=== PATIENT | female | born 1935 | race Hispanic/Latino ===

== ENCOUNTER 2018-11-28 23:19 | Observation (INO) | payer OTHER ==
[~2018-11-28] VITALS: Ht 160 cm; Wt 62.6 kg
[2018-11-28] MEDS ORDERED: ASPIRIN 325 MG TABLET ONE (23:29)
[2018-11-28 23:45] LABS: EOSINOPHILS % (AUTO) 2.5 % (0.0-8.0); HEMATOCRIT 36.7 % (36-48); LYMPHOCYTES % (AUTO) 31.8 % (21.0-51.0); MEAN CORPUSCULAR HEMOGLOBIN 30.1 pg (27.0-33.0); MEAN CORPUSCULAR HGB CONC 33.9 g/dL (32.0-36.0); MEAN CORPUSCULAR VOLUME 88.8 fL (79-99); MONOCYTES % (AUTO) 10.9 % (3.0-13.0); NEUTROPHILS % (AUTO) 53.8 % (40.0-77.0); NUCLEATED RED BLOOD CELLS 0.1 % (0.0-0.19); PLATELET COUNT (AUTO) 175 K/uL (130-400); RED BLOOD CELL COUNT(AUTO) 4.13 MIL/uL (4.00-5.50); RED CELL DISTRIBUTION WIDTH 12.7 % (11.0-15.5)
[2018-11-28 23:55] LABS: CREATININE 0.8 mg/dL (0.5-1.5); POTASSIUM 4.1 mmol/L (3.5-5.1)
[2018-11-28 23:57] LABS: PARTIAL THROMBOPLASTIN TIME 26.2 SEC (26.3-35.5); PROTHROMBIN TIME 10.5 SEC (9.6-11.6)
[2018-11-29 00:05] LABS: ALBUMIN 3.5 g/dL (3.5-5.0); BILIRUBIN,TOTAL 0.3 mg/dL (0.2-1.0); TOTAL PROTEIN, SERUM 7.8 g/dL (6.0-8.3)
[2018-11-29] MEDS ORDERED: ONDANSETRON HCL 4 MG/2 ML VIAL ONE ×2 (00:07→01:23)
[2018-11-29] MEDS ORDERED: MORPHINE SULFATE 4 MG/1ML SYG ONE (00:07)
[2018-11-29] MEDS ORDERED: ACETAMINOPHEN 325 MG TAB PO PRN (03:15)
[2018-11-29] MEDS ORDERED: MORPHINE SULFATE 2 MG/ML 1ML SYG IV PRN (03:15)
[2018-11-29] MEDS: NITROGLYCERIN 1GM/1 INCH PACKET TD SCH ×2 (03:15→11:15)
[2018-11-29] MEDS ORDERED: ONDANSETRON HCL 4 MG/2 ML VIAL IV PRN (03:15)
[2018-11-29] MEDS ORDERED: NITROGLYCERIN 1GM/1 INCH PACKET TD ONE (04:48)
[2018-11-29 05:00] VITALS: BP 138/63
[2018-11-29 08:00] VITALS: BP 115/66
[2018-11-29] MEDS ORDERED: METOPROLOL TARTRATE 25 MG TAB PO SCH (09:00)
[2018-11-29] MEDS ORDERED: ENOXAPARIN SODIUM 30 MG/0.3 ML SQ SCH (09:00)
[2018-11-29] MEDS ORDERED: ASPIRIN 325 MG TABLET PO SCH (09:00)
[2018-11-29] MEDS ORDERED: FAMOTIDINE/PF 20 MG/2 ML VIAL IV SCH (09:00)
[2018-11-29 11:00] VITALS: BP 131/60
== END 2018-11-29 13:44 | disposition home or self-care (01) ==
LOC: EDH 23:19 → EDHIP 23:20 → 4AH 11-29 04:46
PROVIDERS: ADMIT Internal Medicine; ATTEND Internal Medicine
DX: R07.89 Other chest pain (principal); E11.9 Type 2 diabetes mellitus without complications; I10 Essential (primary) hypertension; J32.0 Chronic maxillary sinusitis
CPT/HCPCS: 36415; 70450; 71045; 80053; 82550; 82948 ×2; 83874; 84484 ×2; 85025; 85610; 85730; 93005; 96372; 96374; 99284; G0378 ×14; J1650; J2270; J2405 ×2; J3490

== ENCOUNTER 2019-09-20 21:51 | Emergency (ER) | payer MEDICAID, OTHER ==
[2019-09-20 22:34] LABS: BASOPHILS % (AUTO) 0.9 % (0.0-5.0); EOSINOPHILS % (AUTO) 1.4 % (0.0-8.0); LYMPHOCYTES % (AUTO) 28.8 % (21.0-51.0); MEAN CORPUSCULAR HEMOGLOBIN 30.2 pg (27.0-33.0); MEAN CORPUSCULAR HGB CONC 34.2 g/dL (32.0-36.0); MEAN CORPUSCULAR VOLUME 88.2 fL (79-99); MONOCYTES % (AUTO) 10.4 % (3.0-13.0); NEUTROPHILS % (AUTO) 58.5 % (40.0-77.0); PLATELET COUNT (AUTO) 163 K/uL (130-400); RED BLOOD CELL COUNT(AUTO) 4.08 MIL/uL (4.00-5.50); RED CELL DISTRIBUTION WIDTH 13.4 % (11.0-15.5); WHITE BLOOD COUNT (AUTO) 5.3 K/uL (4.8-10.8)
[2019-09-20 22:39] LABS: APPEARANCE,URINE Clear (CLEAR); BILIRUBIN,URINE Negative (NEGATIVE); COLOR,URINE Yellow (YELLOW); GLUCOSE, URINE (UA) Negative (NEGATIVE); KETONES,URINE Negative (NEGATIVE); LEUKOCYTE ESTERASE ,URINE Small (NEGATIVE); NITRATE,URINE Negative (NEGATIVE); OCCULT BLOOD,URINE Negative (NEGATIVE); PH,URINE 6.5 (5.0-8.0); PROTEIN,URINE Negative (NEGATIVE)
[2019-09-20 22:45] LABS: CREATININE 1.3 mg/dL (0.5-1.5); POTASSIUM 4.5 mmol/L (3.5-5.1)
[2019-09-20] MEDS ORDERED: ONDANSETRON HCL 4 MG/2 ML VIAL ONE (22:58)
[2019-09-20] MEDS ORDERED: IOHEXOL-350 75 ML VIAL IV ONE (23:04)
[2019-09-20 23:06] LABS: BACTERIA,URINE Moderate /HPF (None Seen); RBC,URINE None Seen /HPF (0-1); SQUAMOUS EPITHELIAL CELL,UR Rare /HPF (0-2); WBC,URINE 0-1 /HPF (0-1)
[2019-09-20 23:10] LABS: ALBUMIN 3.5 g/dL (3.5-5.0); BILIRUBIN,TOTAL 0.4 mg/dL (0.2-1.0); TOTAL PROTEIN, SERUM 7.8 g/dL (6.0-8.3)
[2019-09-21] MEDS ORDERED: KETOROLAC TROMETHAMINE 30MG/ML ONE (01:16)
[2019-09-21] MEDS ORDERED: DICYCLOMINE HCL 20 MG TAB ONE (01:16)
[2019-09-21] MEDS ORDERED: CEFTRIAXONE SODIUM 1 GM ONE (01:16)
== END 2019-09-21 02:06 | disposition home or self-care (01) ==
LOC: EDH 21:51
DX: N39.0 Urinary tract infection, site not specified (principal); M54.2 Cervicalgia; E11.9 Type 2 diabetes mellitus without complications; I10 Essential (primary) hypertension; Z98.890 Other specified postprocedural states; Z90.49 Acquired absence of other specified parts of digestive tract
CPT/HCPCS: 36415; 71045; 74177; 80053; 81001; 83605; 83690; 85025; 93005; 96374; 96375; 99285; J0696; J1885; J2405; Q9967

== ENCOUNTER 2019-10-01 22:03 | Emergency (ER) | payer OTHER ==
[2019-10-01] MEDS ORDERED: ONDANSETRON HCL 4 MG/2 ML VIAL ONE (22:57)
[2019-10-01] MEDS ORDERED: MORPHINE SULFATE 4 MG/1ML SYG ONE (22:57)
[2019-10-01] MEDS ORDERED: SODIUM CHLORIDE 0.9% 1000ML 1,000 ML IV ONE (22:58)
[2019-10-01 23:09] LABS: BASOPHILS % (AUTO) 0.7 % (0.0-5.0); HEMATOCRIT 33.6 % (36-48); LYMPHOCYTES % (AUTO) 33.3 % (21.0-51.0); MEAN CORPUSCULAR HEMOGLOBIN 29.4 pg (27.0-33.0); MEAN CORPUSCULAR VOLUME 89.1 fL (79-99); MONOCYTES % (AUTO) 13.1 % (3.0-13.0); NEUTROPHILS % (AUTO) 50.7 % (40.0-77.0); PLATELET COUNT (AUTO) 163 K/uL (130-400); RED BLOOD CELL COUNT(AUTO) 3.77 MIL/uL (4.00-5.50); RED CELL DISTRIBUTION WIDTH 13.1 % (11.0-15.5); WHITE BLOOD COUNT (AUTO) 4.1 K/uL (4.8-10.8)
[2019-10-01 23:10] LABS: APPEARANCE,URINE Clear (CLEAR); BILIRUBIN,URINE Negative (NEGATIVE); COLOR,URINE Yellow (YELLOW); GLUCOSE, URINE (UA) Negative (NEGATIVE); KETONES,URINE Negative (NEGATIVE); LEUKOCYTE ESTERASE ,URINE Negative (NEGATIVE); NITRATE,URINE Negative (NEGATIVE); OCCULT BLOOD,URINE Negative (NEGATIVE); PROTEIN,URINE Negative (NEGATIVE)
[2019-10-01 23:17] LABS: CREATININE 1.2 mg/dL (0.5-1.5)
[2019-10-01 23:22] LABS: ALBUMIN 3.5 g/dL (3.5-5.0); BILIRUBIN,TOTAL 0.4 mg/dL (0.2-1.0); TOTAL PROTEIN, SERUM 7.4 g/dL (6.0-8.3)
[2019-10-01] MEDS ORDERED: ACETAMINOPHEN EXTRA STRENGTH 500 MG TABLET ONE (23:47)
[2019-10-02] MEDS ORDERED: CYCLOBENZAPRINE HCL 10 MG TABLET ONE (00:46)
== END 2019-10-02 01:19 | disposition home or self-care (01) ==
LOC: EDH 22:03
DX: E86.0 Dehydration (principal); M54.2 Cervicalgia; N28.9 Disorder of kidney and ureter, unspecified; E11.9 Type 2 diabetes mellitus without complications; I10 Essential (primary) hypertension; Z90.49 Acquired absence of other specified parts of digestive tract
CPT/HCPCS: 36415; 74176; 80053; 81003; 82550; 83690; 84484; 85025; 93005; 96361 ×2; 96374; 96375; 99285; J2270; J2405; J7030

== ENCOUNTER 2021-01-28 23:27 | Emergency (ER) | payer MEDICAID, OTHER ==
[2021-01-29 00:07] LABS: BASOPHILS % (AUTO) 0.6 % (0.0-5.0); HEMATOCRIT 36.6 % (36-48); LYMPHOCYTES % (AUTO) 26.5 % (21.0-51.0); MEAN CORPUSCULAR HEMOGLOBIN 30.3 pg (27.0-33.0); MEAN CORPUSCULAR HGB CONC 34.2 g/dL (32.0-36.0); MEAN CORPUSCULAR VOLUME 88.8 fL (79-99); MONOCYTES % (AUTO) 10.9 % (3.0-13.0); NEUTROPHILS % (AUTO) 60.8 % (40.0-77.0); PLATELET COUNT (AUTO) 190 K/uL (130-400); RED BLOOD CELL COUNT(AUTO) 4.12 MIL/uL (4.00-5.50); RED CELL DISTRIBUTION WIDTH 12.8 % (11.0-15.5); WHITE BLOOD COUNT (AUTO) 6.2 K/uL (4.8-10.8)
[2021-01-29 00:15] LABS: CREATININE 0.9 mg/dL (0.5-1.5); POTASSIUM 4.3 mmol/L (3.5-5.1)
[2021-01-29 00:19] LABS: ALBUMIN 3.7 g/dL (3.5-5.0); BILIRUBIN,TOTAL 0.4 mg/dL (0.2-1.0)
[2021-01-29] MEDS ORDERED: KETOROLAC 30MG VIAL (30MG/ML) ONE (00:20)
[2021-01-29] MEDS ORDERED: SOLU-MEDROL 125MG VIAL ONE (02:05)
== END 2021-01-29 03:48 | disposition home or self-care (01) ==
LOC: EDH 23:27
DX: M13.861 Other specified arthritis, right knee (principal); E11.9 Type 2 diabetes mellitus without complications; I10 Essential (primary) hypertension; Z90.49 Acquired absence of other specified parts of digestive tract; Z98.890 Other specified postprocedural states; Z79.899 Other long term (current) drug therapy
CPT/HCPCS: 36415; 73562; 73630; 80053; 84484; 85025; 93005; 96374; 96375; 99285; J1885; J2930

== ENCOUNTER 2022-07-23 22:19 | Emergency (ER) | payer MEDICAID, OTHER ==
[~2022-07-23] VITALS: Ht 152.4 cm; Wt 61.2 kg
[2022-07-23 22:51] LABS: BASOPHILS % (AUTO) 0.4 % (0.0-5.0); EOSINOPHILS % (AUTO) 0.6 % (0.0-8.0); HEMATOCRIT 34.8 % (36-48); LYMPHOCYTES % (AUTO) 11.6 % (21.0-51.0); MEAN CORPUSCULAR HEMOGLOBIN 30.4 pg (27.0-33.0); MEAN CORPUSCULAR HGB CONC 34.2 g/dL (32.0-36.0); NEUTROPHILS % (AUTO) 78.9 % (40.0-77.0); PLATELET COUNT (AUTO) 162 K/uL (130-400); RED BLOOD CELL COUNT(AUTO) 3.91 MIL/uL (4.00-5.50); RED CELL DISTRIBUTION WIDTH 12.7 % (11.0-15.5); WHITE BLOOD COUNT (AUTO) 10.9 K/uL (4.8-10.8)
[2022-07-23] MEDS ORDERED: MORPHINE 2 MG SYG IVP ONE (23:00)
[2022-07-23] MEDS ORDERED: ONDANSETRON 4MG INJ IVP ONE (23:00)
[2022-07-23 23:07] LABS: CREATININE 1.3 mg/dL (0.5-1.5); POTASSIUM 4.2 mmol/L (3.5-5.1)
[2022-07-23 23:12] LABS: ALBUMIN 3.2 g/dL (3.5-5.0); TOTAL PROTEIN, SERUM 7.2 g/dL (6.0-8.3)
[2022-07-23 23:54] VITALS: BP 149/54
[2022-07-24] MEDS ORDERED: METH4TAB3 PO (00:22)
[2022-07-24] MEDS ORDERED: LACT10SO9 PO (00:24)
[2022-07-24] MEDS ORDERED: SOLU-MEDROL 125MG VIAL IVP ONE (00:30)
== END 2022-07-24 00:36 | disposition home or self-care (01) ==
LOC: EDH 22:19
DX: S01.01XA Laceration without foreign body of scalp, initial encounter (principal); S30.0XXA Contusion of lower back and pelvis, initial encounter; M79.18 Myalgia, other site; K59.00 Constipation, unspecified; M54.2 Cervicalgia; E11.9 Type 2 diabetes mellitus without complications; I10 Essential (primary) hypertension; W01.0XXA Fall on same level from slipping, tripping and stumbling without subsequent striking against object, initial encounter; Y93.89 Activity, other specified; Y92.89 Other specified places as the place of occurrence of the external cause; Y99.8 Other external cause status
CPT/HCPCS: 99284; 72125; 96374; 96375 ×2; 80053; 85025; 36415; 74176; J2405; J2930

== ENCOUNTER 2022-07-25 20:51 | Inpatient (IN) | payer OTHER ==
[~2022-07-25] VITALS: Ht 160 cm; Wt 61.7 kg
[~2022-07-25 20:51] MED LIST: LACT10SO9 PO; METH4TAB3 PO
[2022-07-25] MEDS ORDERED: HYDROCODONE/ACETAMINOPHEN 5/325 MG TAB PO ONE (21:30)
[2022-07-25 23:26] LABS: BASOPHILS % (AUTO) 0.3 % (0.0-5.0); EOSINOPHILS % (AUTO) 0.6 % (0.0-8.0); HEMATOCRIT 31.9 % (36-48); LYMPHOCYTES % (AUTO) 12.8 % (21.0-51.0); MEAN CORPUSCULAR HEMOGLOBIN 30.6 pg (27.0-33.0); MEAN CORPUSCULAR HGB CONC 34.5 g/dL (32.0-36.0); MEAN CORPUSCULAR VOLUME 88.6 fL (79-99); PLATELET COUNT (AUTO) 160 K/uL (130-400); RED CELL DISTRIBUTION WIDTH 12.8 % (11.0-15.5); WHITE BLOOD COUNT (AUTO) 10.1 K/uL (4.8-10.8)
[2022-07-25 23:39] LABS: CREATININE 1.1 mg/dL (0.5-1.5); POTASSIUM 4.1 mmol/L (3.5-5.1)
[2022-07-25 23:44] LABS: ALBUMIN 2.8 g/dL (3.5-5.0); TOTAL PROTEIN, SERUM 6.4 g/dL (6.0-8.3)
[2022-07-26 00:11] LABS: APPEARANCE,URINE CLOUDY (CLEAR); BILIRUBIN,URINE NEGATIVE (NEGATIVE); COLOR,URINE LIGHT-YELLOW (YELLOW); GLUCOSE, URINE (UA) NEGATIVE (NEGATIVE); KETONES,URINE NEGATIVE (NEGATIVE); LEUKOCYTE ESTERASE ,URINE 500 Leu/uL (NEGATIVE); NITRATE,URINE NEGATIVE (NEGATIVE); OCCULT BLOOD,URINE NEGATIVE (NEGATIVE); PH,URINE 6.5 (5.0-8.0); PROTEIN,URINE NEGATIVE (NEGATIVE); UROBILINOGEN,URINE 0.2 mg/dL (0.2-1.0)
[2022-07-26 00:15] LABS: BACTERIA,URINE RARE /HPF (None Seen); MUCUS,URINE RARE LPF (None Seen); SQUAMOUS EPITHELIAL CELL,UR RARE /HPF (0-2); WBC,URINE 51-100 /HPF (0-1)
[2022-07-26] MEDS ORDERED: CEFTRIAXONE 1G VIAL IVP ONE (00:30)
[2022-07-26] MEDS ORDERED: ONDANSETRON 4MG INJ IV PRN (01:00)
[2022-07-26] MEDS ORDERED: 0.9%NACL 1000ML 1,000 ML IV SCH (01:00)
[2022-07-26] MEDS ORDERED: LACT10SO9 PO (01:25)
[2022-07-26] MEDS ORDERED: AMLO-257 PO (01:25)
[2022-07-26] MEDS ORDERED: CHOL100020 PO (01:25)
[2022-07-26] MEDS ORDERED: LISI40TA9 PO (01:25)
[2022-07-26 06:09] LABS: BASOPHILS % (AUTO) 0.4 % (0.0-5.0); EOSINOPHILS % (AUTO) 1.4 % (0.0-8.0); HEMATOCRIT 30.2 % (36-48); LYMPHOCYTES % (AUTO) 19.1 % (21.0-51.0); MEAN CORPUSCULAR HEMOGLOBIN 30.6 pg (27.0-33.0); MEAN CORPUSCULAR HGB CONC 34.1 g/dL (32.0-36.0); MEAN CORPUSCULAR VOLUME 89.6 fL (79-99); MONOCYTES % (AUTO) 9.3 % (3.0-13.0); NEUTROPHILS % (AUTO) 69.3 % (40.0-77.0); PLATELET COUNT (AUTO) 149 K/uL (130-400); RED BLOOD CELL COUNT(AUTO) 3.37 MIL/uL (4.00-5.50); RED CELL DISTRIBUTION WIDTH 13.1 % (11.0-15.5); WHITE BLOOD COUNT (AUTO) 7.3 K/uL (4.8-10.8)
[2022-07-26 06:29] LABS: INR 0.94 (0.85-1.15); PROTHROMBIN TIME 10.3 SEC (9.6-11.6)
[2022-07-26 06:31] LABS: PARTIAL THROMBOPLASTIN TIME 24.2 SEC (26.3-35.5)
[2022-07-26 06:35] LABS: HEMOGLOBIN A1C 6.1 % (4.0-6.0)
[2022-07-26 06:52] LABS: CREATININE 1.1 mg/dL (0.5-1.5); MAGNESIUM 1.5 mg/dL (1.80-2.40); PHOSPHORUS 2.6 mg/dL (2.5-4.9); POTASSIUM 4.3 mmol/L (3.5-5.1)
[2022-07-26] MEDS: MORPHINE 2 MG SYG IV PRN (08:08)
[2022-07-26 08:30] VITALS: BP 146/60
[2022-07-26] MEDS: LACTULOSE 20 GM/30 ML UDCUP PO PRN (09:33)
[2022-07-26] MEDS: CEFTRIAXONE 1G VIAL IVP SCH (09:39)
[2022-07-26] MEDS: FAMOTIDINE 20MG VIAL IV SCH (09:39)
[2022-07-26 12:00] VITALS: BP 108/54
[2022-07-26 16:00] VITALS: BP 164/71
[2022-07-26 20:00] VITALS: BP 168/60
[2022-07-26] MEDS: INSULIN HUMULIN R 100 UNIT/ML 3ML SQ SCH (20:15)
[2022-07-26] MEDS ORDERED: POTASSIUM CHLORIDE 10% ELIXIR 20 MEQ/15 ML UDCUP PO PRN (20:30)
[2022-07-26] MEDS ORDERED: KCL 20 MEQ ERTAB PO PRN (20:30)
[2022-07-26] MEDS ORDERED: LIDOCAINE HCL-MPF 1% 2ML VIAL IV PRN (20:30)
[2022-07-26] MEDS ORDERED: DEXTROSE 50%-WATER 50 ML DISP.SYRIN IV PRN (20:30)
[2022-07-26] MEDS ORDERED: POTASSIUM CHLORIDE 20MEQ/100ML 100 ML IV PRN (20:30)
[2022-07-26] MEDS ORDERED: GLUCAGON 1MG KIT 1 MG ML IM PRN (20:30)
[2022-07-27] VITALS: BP 172/73
[2022-07-27 05:39] VITALS: BP 183/73
[2022-07-27] MEDS: MORPHINE 2 MG SYG IV PRN (05:47)
[2022-07-27] MEDS: INSULIN HUMULIN R 100 UNIT/ML 3ML SQ SCH ×4 (06:21→20:00)
[2022-07-27 08:00] VITALS: BP 142/72
[2022-07-27] MEDS: CHOLECALCIFEROL 25 MCG PO SCH (09:00)
[2022-07-27] MEDS: MORPHINE 4 MG SYG IV PRN ×2 (09:52→18:35)
[2022-07-27] MEDS: FAMOTIDINE 20MG VIAL IV SCH (09:53)
[2022-07-27] MEDS: AMLODIPINE 5 MG TAB PO SCH ×2 (11:32→19:37)
[2022-07-27] MEDS: LISINOPRIL 40 MG TABLET PO SCH (11:32)
[2022-07-27] MEDS: CEFTRIAXONE 1G VIAL IVP SCH (11:33)
[2022-07-27] MEDS: LACTULOSE 20 GM/30 ML UDCUP PO SCH ×2 (11:33→19:37)
[2022-07-27] MEDS ORDERED: FURO20TA6 PO (11:36)
[2022-07-27] MEDS: MAGNESIUM 2GM PREMIX 50ML 50 ML IV PRN (11:49)
[2022-07-27 12:00] VITALS: BP 131/59
[2022-07-27 16:00] VITALS: BP 160/67
[2022-07-27] MEDS: LACTULOSE 20 GM/30 ML UDCUP PO PRN (18:45)
[2022-07-27 20:00] VITALS: BP 156/69
[2022-07-28] VITALS: BP 119/87
[2022-07-28 04:00] VITALS: BP 138/58
[2022-07-28] MEDS: INSULIN HUMULIN R 100 UNIT/ML 3ML SQ SCH ×4 (06:33→21:00)
[2022-07-28 08:00] VITALS: BP 161/65
[2022-07-28] MEDS: CEFTRIAXONE 1G VIAL IVP SCH (08:38)
[2022-07-28] MEDS: LISINOPRIL 40 MG TABLET PO SCH (08:38)
[2022-07-28] MEDS: LACTULOSE 20 GM/30 ML UDCUP PO SCH ×3 (08:38→21:03)
[2022-07-28] MEDS: FAMOTIDINE 20MG VIAL IV SCH (08:38)
[2022-07-28] MEDS: AMLODIPINE 5 MG TAB PO SCH ×2 (08:38→21:03)
[2022-07-28] MEDS: CHOLECALCIFEROL 25 MCG PO SCH (08:39)
[2022-07-28] MEDS: MAGNESIUM 2GM PREMIX 50ML 50 ML IV PRN (08:39)
[2022-07-28] MEDS: MORPHINE 2 MG SYG IV PRN (09:54)
[2022-07-28 12:00] VITALS: BP 128/62
[2022-07-28 16:00] VITALS: BP 147/69
[2022-07-28] MEDS ORDERED: ACETAMINOPHEN 325 MG TAB PO PRN (16:30)
[2022-07-28] MEDS: HYDROCODONE/ACETAMINOPHEN 5/325 MG TAB PO PRN (16:51)
[2022-07-28 20:00] VITALS: BP 155/64
[2022-07-29] VITALS: BP 155/64
[2022-07-29 04:00] VITALS: BP 171/68
[2022-07-29 05:33] LABS: BASOPHILS % (AUTO) 0.4 % (0.0-5.0); EOSINOPHILS % (AUTO) 2.2 % (0.0-8.0); HEMATOCRIT 29.8 % (36-48); LYMPHOCYTES % (AUTO) 20.5 % (21.0-51.0); MEAN CORPUSCULAR HGB CONC 34.9 g/dL (32.0-36.0); MEAN CORPUSCULAR VOLUME 88.7 fL (79-99); MONOCYTES % (AUTO) 12.5 % (3.0-13.0); NEUTROPHILS % (AUTO) 63.8 % (40.0-77.0); PLATELET COUNT (AUTO) 151 K/uL (130-400); RED BLOOD CELL COUNT(AUTO) 3.36 MIL/uL (4.00-5.50); RED CELL DISTRIBUTION WIDTH 12.5 % (11.0-15.5); WHITE BLOOD COUNT (AUTO) 6.8 K/uL (4.8-10.8)
[2022-07-29 05:44] LABS: CREATININE 0.7 mg/dL (0.5-1.5); MAGNESIUM 1.9 mg/dL (1.80-2.40); PHOSPHORUS 2.2 mg/dL (2.5-4.9); POTASSIUM 4.3 mmol/L (3.5-5.1)
[2022-07-29] MEDS: INSULIN HUMULIN R 100 UNIT/ML 3ML SQ SCH ×3 (07:30→16:30)
[2022-07-29] MEDS: CHOLECALCIFEROL 25 MCG PO SCH (07:46)
[2022-07-29 08:00] VITALS: BP 169/73
[2022-07-29] MEDS: HYDROCODONE/ACETAMINOPHEN 5/325 MG TAB PO PRN ×2 (08:42→17:45)
[2022-07-29] MEDS: FAMOTIDINE 20MG VIAL IV SCH (08:42)
[2022-07-29] MEDS: CEFTRIAXONE 1G VIAL IVP SCH (08:42)
[2022-07-29] MEDS: AMLODIPINE 5 MG TAB PO SCH (08:42)
[2022-07-29] MEDS: LISINOPRIL 40 MG TABLET PO SCH (08:42)
[2022-07-29] MEDS: LACTULOSE 20 GM/30 ML UDCUP PO SCH (08:42)
[2022-07-29 12:00] VITALS: BP 103/61
[2022-07-29 16:00] VITALS: BP 124/40
[2022-07-29] MEDS ORDERED: HYDR-4060 PO ×2 (16:53→19:02)
== END 2022-07-29 18:23 | disposition home or self-care (01) | DRG 536 ==
LOC: EDH 20:51 → EDHIP 20:52 → 3CH 07-26 08:33
PROVIDERS: ADMIT Internal Medicine; ATTEND Internal Medicine
DX: S32.392A Other fracture of left ilium, initial encounter for closed fracture (principal); N39.0 Urinary tract infection, site not specified; Z20.822 Contact with and (suspected) exposure to COVID-19; E11.9 Type 2 diabetes mellitus without complications; I10 Essential (primary) hypertension; W18.39XA Other fall on same level, initial encounter; Y93.89 Activity, other specified; Y92.89 Other specified places as the place of occurrence of the external cause; Y99.8 Other external cause status
CPT/HCPCS: 36415; 71045; 72170; 72192; 80048; 80053; 81001; 82948; 83036; 83735; 84100; 85025; 85610; 85730; 86850; 86900; 86901; 87040; 87077; 87088; 87186; 87635; 93005; 97039; C9803; G0378; J0696; J2270; J2405; J3475; J3490; J7030

== ENCOUNTER 2022-08-09 19:01 | Emergency (ER) | payer MEDICAID, OTHER ==
[~2022-08-09] VITALS: Ht 160 cm; Wt 61.7 kg
[~2022-08-09 19:01] MED LIST changes: +AMLO-257 PO; +CHOL100020 PO; +FURO20TA6 PO; +HYDR-4060 PO; +LISI40TA9 PO; -METH4TAB3 PO
[2022-08-09 19:33] LABS: BASOPHILS % (AUTO) 0.8 % (0.0-5.0); EOSINOPHILS % (AUTO) 1.3 % (0.0-8.0); LYMPHOCYTES % (AUTO) 22.9 % (21.0-51.0); MEAN CORPUSCULAR HEMOGLOBIN 30.5 pg (27.0-33.0); MEAN CORPUSCULAR HGB CONC 34.2 g/dL (32.0-36.0); MEAN CORPUSCULAR VOLUME 89.2 fL (79-99); MONOCYTES % (AUTO) 9.4 % (3.0-13.0); NEUTROPHILS % (AUTO) 65.1 % (40.0-77.0); PLATELET COUNT (AUTO) 264 K/uL (130-400); RED CELL DISTRIBUTION WIDTH 12.8 % (11.0-15.5); WHITE BLOOD COUNT (AUTO) 6.2 K/uL (4.8-10.8)
[2022-08-09 19:42] LABS: CREATININE 1.1 mg/dL (0.5-1.5); POTASSIUM 4.1 mmol/L (3.5-5.1)
[2022-08-09 19:47] LABS: ALBUMIN 3.1 g/dL (3.5-5.0); TOTAL PROTEIN, SERUM 7.3 g/dL (6.0-8.3)
[2022-08-09 21:25] LABS: APPEARANCE,URINE CLEAR (CLEAR); BILIRUBIN,URINE NEGATIVE (NEGATIVE); COLOR,URINE LIGHT-YELLOW (YELLOW); GLUCOSE, URINE (UA) NEGATIVE (NEGATIVE); KETONES,URINE NEGATIVE (NEGATIVE); LEUKOCYTE ESTERASE ,URINE NEGATIVE Leu/uL (NEGATIVE); NITRATE,URINE NEGATIVE (NEGATIVE); OCCULT BLOOD,URINE NEGATIVE (NEGATIVE); PH,URINE 6.5 (5.0-8.0); PROTEIN,URINE NEGATIVE (NEGATIVE); UROBILINOGEN,URINE 0.2 mg/dL (0.2-1.0)
[2022-08-09 21:28] LABS: BACTERIA,URINE RARE /HPF (None Seen); RBC,URINE 0-1 /HPF (0-1); WBC,URINE 0-1 /HPF (0-1)
[2022-08-09 22:47] VITALS: BP 133/74
== END 2022-08-09 22:51 | disposition home or self-care (01) ==
LOC: EDH 19:01
DX: S32.309A Unspecified fracture of unspecified ilium, initial encounter for closed fracture (principal); R10.2 Pelvic and perineal pain; E11.9 Type 2 diabetes mellitus without complications; I10 Essential (primary) hypertension; Z90.49 Acquired absence of other specified parts of digestive tract; Z98.890 Other specified postprocedural states; Z79.899 Other long term (current) drug therapy; W19.XXXA Unspecified fall, initial encounter; Y93.89 Activity, other specified; Y92.89 Other specified places as the place of occurrence of the external cause; Y99.8 Other external cause status
CPT/HCPCS: 36415; 80053; 81001; 83690; 85025

== ENCOUNTER 2022-12-16 22:12 | Emergency (ER) | payer MEDICAID, MEDICARE ==
[~2022-12-16] VITALS: Ht 157.5 cm; Wt 63.0 kg
[2022-12-16] MEDS ORDERED: ACETAMINOPHEN 325 MG TAB PO ONE (22:30)
[2022-12-16 22:58] LABS: APPEARANCE,URINE CLOUDY (CLEAR); BILIRUBIN,URINE NEGATIVE (NEGATIVE); COLOR,URINE YELLOW (YELLOW); GLUCOSE, URINE (UA) NEGATIVE (NEGATIVE); KETONES,URINE NEGATIVE (NEGATIVE); LEUKOCYTE ESTERASE ,URINE 500 Leu/uL (NEGATIVE); NITRATE,URINE NEGATIVE (NEGATIVE); PH,URINE 5.5 (5.0-8.0); PROTEIN,URINE NEGATIVE (NEGATIVE); UROBILINOGEN,URINE 0.2 mg/dL (0.2-1.0)
[2022-12-16 23:01] LABS: BACTERIA,URINE MANY /HPF (None Seen); MUCUS,URINE RARE LPF (None Seen); SQUAMOUS EPITHELIAL CELL,UR RARE /HPF (0-2)
[2022-12-16] MEDS ORDERED: CEFTRIAXONE 1G VIAL IM ONE (23:30)
[2022-12-16 23:38] VITALS: BP 127/60
[2022-12-17] MEDS ORDERED: CEPH500B PO (00:17)
== END 2022-12-17 00:38 | disposition home or self-care (01) ==
LOC: EDH 22:31
DX: U07.1 COVID-19 (principal); N39.0 Urinary tract infection, site not specified; J40 Bronchitis, not specified as acute or chronic; E11.9 Type 2 diabetes mellitus without complications; I10 Essential (primary) hypertension; Z79.899 Other long term (current) drug therapy; Z90.49 Acquired absence of other specified parts of digestive tract
CPT/HCPCS: 99284; 71045; 87635; 87077; 87088; 87186; 87804 ×2; 81001; 96372; C9803; J0696

== ENCOUNTER 2023-02-13 14:20 | Emergency (ER) | payer OTHER ==
[~2023-02-13] VITALS: Ht 160 cm; Wt 55.8 kg
[~2023-02-13 14:20] MED LIST changes: +CEPH500B PO
[2023-02-13] MEDS ORDERED: ACETAMINOPHEN 500 MG TABLET PO ONE (15:00)
[2023-02-13] MEDS ORDERED: 0.9%NACL 1000ML 1,000 ML IV SCH (15:00)
[2023-02-13 15:10] LABS: BASOPHILS % (AUTO) 0.3 % (0.0-5.0); HEMATOCRIT 35.6 % (36-48); LYMPHOCYTES % (AUTO) 3.5 % (21.0-51.0); MEAN CORPUSCULAR HEMOGLOBIN 30.3 pg (27.0-33.0); MEAN CORPUSCULAR HGB CONC 34.3 g/dL (32.0-36.0); MEAN CORPUSCULAR VOLUME 88.3 fL (79-99); MONOCYTES % (AUTO) 7.6 % (3.0-13.0); NEUTROPHILS % (AUTO) 88.4 % (40.0-77.0); PLATELET COUNT (AUTO) 178 K/uL (130-400); RED BLOOD CELL COUNT(AUTO) 4.03 MIL/uL (4.00-5.50); RED CELL DISTRIBUTION WIDTH 12.3 % (11.0-15.5); WHITE BLOOD COUNT (AUTO) 9.7 K/uL (4.8-10.8)
[2023-02-13 15:27] LABS: CREATININE 1.1 mg/dL (0.5-1.5); POTASSIUM 3.7 mmol/L (3.5-5.1)
[2023-02-13 15:32] LABS: ALBUMIN 3.2 g/dL (3.5-5.0); TOTAL PROTEIN, SERUM 7.6 g/dL (6.0-8.3)
[2023-02-13 17:35] LABS: APPEARANCE,URINE CLOUDY (CLEAR); BILIRUBIN,URINE NEGATIVE (NEGATIVE); COLOR,URINE LIGHT-YELLOW (YELLOW); GLUCOSE, URINE (UA) NEGATIVE (NEGATIVE); KETONES,URINE NEGATIVE (NEGATIVE); LEUKOCYTE ESTERASE ,URINE 500 Leu/uL (NEGATIVE); NITRATE,URINE NEGATIVE (NEGATIVE); OCCULT BLOOD,URINE SMALL (NEGATIVE); PROTEIN,URINE NEGATIVE (NEGATIVE); UROBILINOGEN,URINE 0.2 mg/dL (0.2-1.0)
[2023-02-13] MEDS ORDERED: CEFTRIAXONE 1G VIAL IVP ONE (18:00)
[2023-02-13 18:02] LABS: BACTERIA,URINE MOD /HPF (None Seen); MUCUS,URINE RARE LPF (None Seen); SQUAMOUS EPITHELIAL CELL,UR RARE /HPF (0-2); WBC,URINE TNTC /HPF (0-1); YEAST,URINE BUDDING RARE /HPF (None Seen)
[2023-02-13] MEDS ORDERED: MACR100 PO (18:15)
[2023-02-13 18:25] VITALS: BP 122/51
== END 2023-02-13 18:57 | disposition home or self-care (01) ==
LOC: EDH 14:20
DX: N39.0 Urinary tract infection, site not specified (principal); I10 Essential (primary) hypertension; E11.9 Type 2 diabetes mellitus without complications; Z20.822 Contact with and (suspected) exposure to COVID-19; Z79.899 Other long term (current) drug therapy; Z87.440 Personal history of urinary (tract) infections; Z90.49 Acquired absence of other specified parts of digestive tract
CPT/HCPCS: 99285; 96374; 71045; 87635; 80053; 85025; 87040 ×2; 87077; 87088; 87186; 87804 ×2; 82948; 83605; 81001; 36415; 51702; 93005; C9803; J0696

== ENCOUNTER 2023-04-03 00:16 | Emergency (ER) | payer OTHER ==
[~2023-04-03] VITALS: Ht 160 cm; Wt 55.8 kg
[~2023-04-03 00:16] MED LIST changes: +MACR100 PO
[2023-04-03 00:59] LABS: BASOPHILS % (AUTO) 0.7 % (0.0-5.0); HEMATOCRIT 33.9 % (36-48); LYMPHOCYTES % (AUTO) 26.8 % (21.0-51.0); MEAN CORPUSCULAR HEMOGLOBIN 30.6 pg (27.0-33.0); MEAN CORPUSCULAR HGB CONC 34.8 g/dL (32.0-36.0); MEAN CORPUSCULAR VOLUME 87.8 fL (79-99); MONOCYTES % (AUTO) 14.2 % (3.0-13.0); NEUTROPHILS % (AUTO) 57.1 % (40.0-77.0); PLATELET COUNT (AUTO) 183 K/uL (130-400); RED BLOOD CELL COUNT(AUTO) 3.86 MIL/uL (4.00-5.50); RED CELL DISTRIBUTION WIDTH 12.8 % (11.0-15.5)
[2023-04-03 01:00] LABS: APPEARANCE,URINE CLEAR (CLEAR); BILIRUBIN,URINE NEGATIVE (NEGATIVE); COLOR,URINE COLORLESS (YELLOW); GLUCOSE, URINE (UA) NEGATIVE (NEGATIVE); KETONES,URINE NEGATIVE (NEGATIVE); LEUKOCYTE ESTERASE ,URINE 250 Leu/uL (NEGATIVE); NITRATE,URINE NEGATIVE (NEGATIVE); OCCULT BLOOD,URINE NEGATIVE (NEGATIVE); PH,URINE 5.5 (5.0-8.0); PROTEIN,URINE NEGATIVE (NEGATIVE); UROBILINOGEN,URINE 0.2 mg/dL (0.2-1.0)
[2023-04-03] MEDS ORDERED: MORPHINE 4 MG SYG IVP ONE (01:00)
[2023-04-03] MEDS ORDERED: METOCLOPRAMIDE 10 MG/2 ML VIAL IVP ONE (01:00)
[2023-04-03] MEDS ORDERED: 0.9%NACL 1000ML 1,000 ML IV ONE (01:00)
[2023-04-03] MEDS ORDERED: FAMOTIDINE 20MG TAB PO ONE (01:00)
[2023-04-03 01:04] LABS: BACTERIA,URINE MANY /HPF (None Seen)
[2023-04-03 01:08] LABS: CREATININE 0.9 mg/dL (0.5-1.5); POTASSIUM 4.7 mmol/L (3.5-5.1)
[2023-04-03 01:12] LABS: ALBUMIN 3.3 g/dL (3.5-5.0); TOTAL PROTEIN, SERUM 6.8 g/dL (6.0-8.3)
[2023-04-03] MEDS ORDERED: METO-296 PO (03:34)
[2023-04-03] MEDS ORDERED: CEPH500B PO (03:34)
[2023-04-03] MEDS ORDERED: CEFTRIAXONE 2GM VIAL IVPB ONE (04:00)
[2023-04-03 04:18] VITALS: BP 105/51
== END 2023-04-03 04:33 | disposition home or self-care (01) ==
LOC: EDH 00:16
DX: N39.0 Urinary tract infection, site not specified (principal); I10 Essential (primary) hypertension; E11.9 Type 2 diabetes mellitus without complications; Z79.899 Other long term (current) drug therapy; Z98.890 Other specified postprocedural states
CPT/HCPCS: 99285; 74176; 96374; 71045; 96375; 96361; 84484; 80053; 83690; 85025; 87077; 87088; 87186; 81001; 36415; 93005; J7030; J0696; J2270; J2765

== ENCOUNTER 2023-06-26 15:58 | Emergency (ER) | payer OTHER ==
[~2023-06-26] VITALS: Ht 160 cm; Wt 59.0 kg
[~2023-06-26 15:58] MED LIST changes: +METO-296 PO
[2023-06-26 16:22] VITALS: BP 144/58; PULSE 60; RESP 19
[2023-06-26 17:10] LABS: BASOPHILS # (AUTO) 0.05 K/uL (0.00-0.20); EOSINOPHILS % (AUTO) 1.9 % (0.0-8.0); HEMATOCRIT 33.2 % (36-48); IMMATURE GRANULOCYTE ABSOLUTE 0.01 K/uL (0-1); LYMPHOCYTES # (AUTO) 1.3 K/uL (1.0-4.8); LYMPHOCYTES % (AUTO) 25.1 % (21.0-51.0); MEAN CORPUSCULAR HEMOGLOBIN 30.4 pg (27.0-33.0); MEAN CORPUSCULAR VOLUME 89.2 fL (79-99); MONOCYTES # (AUTO) 0.5 K/uL (0.1-1.0); MONOCYTES % (AUTO) 8.8 % (3.0-13.0); NEUTROPHILS # (AUTO) 3.3 K/uL (1.8-7.7); PLATELET COUNT (AUTO) 176 K/uL (130-400); RED BLOOD CELL COUNT(AUTO) 3.72 MIL/uL (4.00-5.50); RED CELL DISTRIBUTION WIDTH 12.2 % (11.0-15.5); WHITE BLOOD COUNT (AUTO) 5.2 K/uL (4.8-10.8)
[2023-06-26 17:23] LABS: CREATININE 0.9 mg/dL (0.5-1.5)
[2023-06-26 17:28] LABS: BILIRUBIN,TOTAL 0.4 mg/dL (0.2-1.0); TOTAL PROTEIN, SERUM 6.8 g/dL (6.0-8.3)
== END 2023-06-26 19:23 | disposition left against medical advice (07) ==
LOC: EDH 15:58
DX: R10.9 Unspecified abdominal pain (principal); Z53.21 Procedure and treatment not carried out due to patient leaving prior to being seen by health care provider
CPT/HCPCS: 36415; 80053; 85025; 99281

== ENCOUNTER 2023-08-08 00:02 | Observation (INO) | payer OTHER ==
[~2023-08-08] VITALS: Ht 157.5 cm; Wt 61.8 kg
[2023-08-08 00:33] LABS: BASOPHILS # (AUTO) 0.04 K/uL (0.00-0.20); BASOPHILS % (AUTO) 0.8 % (0.0-5.0); EOSINOPHILS # (AUTO) 0.16 K/uL (0.00-0.70); EOSINOPHILS % (AUTO) 3.1 % (0.0-8.0); HEMATOCRIT 34.3 % (36-48); IMMATURE GRANULOCYTE ABSOLUTE 0.02 K/uL (0-1); LYMPHOCYTES # (AUTO) 1.6 K/uL (1.0-4.8); LYMPHOCYTES % (AUTO) 30.3 % (21.0-51.0); MEAN CORPUSCULAR HEMOGLOBIN 30.9 pg (27.0-33.0); MEAN CORPUSCULAR HGB CONC 34.1 g/dL (32.0-36.0); MEAN CORPUSCULAR VOLUME 90.5 fL (79-99); MONOCYTES # (AUTO) 0.6 K/uL (0.1-1.0); MONOCYTES % (AUTO) 12.5 % (3.0-13.0); NEUTROPHILS # (AUTO) 2.7 K/uL (1.8-7.7); NEUTROPHILS % (AUTO) 52.9 % (40.0-77.0); PLATELET COUNT (AUTO) 155 K/uL (130-400); RED BLOOD CELL COUNT(AUTO) 3.79 MIL/uL (4.00-5.50); RED CELL DISTRIBUTION WIDTH 12.7 % (11.0-15.5); WHITE BLOOD COUNT (AUTO) 5.1 K/uL (4.8-10.8)
[2023-08-08 00:45] LABS: APPEARANCE,URINE CLOUDY (CLEAR); BILIRUBIN,URINE NEGATIVE (NEGATIVE); COLOR,URINE YELLOW (YELLOW); GLUCOSE, URINE (UA) NEGATIVE (NEGATIVE); KETONES,URINE NEGATIVE (NEGATIVE); LEUKOCYTE ESTERASE ,URINE 500 Leu/uL (NEGATIVE); NITRATE,URINE NEGATIVE (NEGATIVE); OCCULT BLOOD,URINE NEGATIVE (NEGATIVE); PROTEIN,URINE NEGATIVE (NEGATIVE)
[2023-08-08 00:46] LABS: CREATININE 0.9 mg/dL (0.5-1.5); POTASSIUM 4.6 mmol/L (3.5-5.1)
[2023-08-08 00:48] LABS: ADD UA MICROSCOPIC YES
[2023-08-08 00:52] LABS: BILIRUBIN,TOTAL 0.3 mg/dL (0.2-1.0); TOTAL PROTEIN, SERUM 6.8 g/dL (6.0-8.3)
[2023-08-08 00:59] LABS: MUCUS,URINE RARE LPF (None Seen); WBC CLUMP FEW /HPF (0-1); WBC,URINE 51-100 /HPF (0-1)
[2023-08-08] MEDS ORDERED: CEFTRIAXONE 1G VIAL IVPB ONE (01:30)
[2023-08-08] MEDS ORDERED: 0.9%NACL 1000ML 1,000 ML IV ONE (01:30)
[2023-08-08] MEDS ORDERED: POTASSIUM CHLORIDE 20MEQ/100ML 100 ML IV PRN (04:00)
[2023-08-08] MEDS ORDERED: ONDANSETRON 4MG INJ IV PRN (04:00)
[2023-08-08] MEDS ORDERED: ACETAMINOPHEN 325 MG TAB PO PRN ×2 (04:00)
[2023-08-08] MEDS ORDERED: HYDROCODONE/ACETAMINOPHEN 5/325 MG TAB PO PRN (04:00)
[2023-08-08] MEDS ORDERED: KCL 20 MEQ ERTAB PO PRN (04:00)
[2023-08-08] MEDS ORDERED: MAGNESIUM 2GM PREMIX 50ML 50 ML IV PRN (04:00)
[2023-08-08] MEDS ORDERED: HYDROMORPHONE 1 MG INJ IV PRN (04:00)
[2023-08-08] MEDS ORDERED: POTASSIUM CHLORIDE 10% ELIXIR 20 MEQ/15 ML UDCUP PO PRN (04:00)
[2023-08-08 05:00] VITALS: O2SAT 100
[2023-08-08] MEDS ORDERED: CETI10TA57 PO (05:26)
[2023-08-08] MEDS ORDERED: CHOL-34 PO (05:26)
[2023-08-08] MEDS: ZOSYN 3.375GM+NS 50ML 50 ML IVPB SCH ×3 (05:28→20:20)
[2023-08-08] MEDS: INSULIN HUMULIN R 100 UNIT/ML 3ML SQ SCH ×4 (06:50→21:00)
[2023-08-08 08:00] VITALS: O2SAT 98
[2023-08-08] MEDS: FAMOTIDINE 20MG TAB PO SCH (09:12)
[2023-08-08] MEDS: ENOXAPARIN SODIUM 30 MG/0.3 ML SQ SCH (09:13)
[2023-08-08] MEDS ORDERED: NON-FORMULARY MEDICATION 1 EACH (Cetirizine HCl 10 MG) PO SCH (10:00)
[2023-08-08 16:00] VITALS: BP 173/71; PULSE 61; RESP 20
[2023-08-08 20:00] VITALS: BP 132/71; PULSE 63; RESP 18; O2SAT 97
[2023-08-09] VITALS: BP 104/52; PULSE 52; RESP 18
[2023-08-09 04:00] VITALS: BP 139/56; PULSE 51; RESP 19
[2023-08-09 04:59] LABS: BASOPHILS # (AUTO) 0.03 K/uL (0.00-0.20); BASOPHILS % (AUTO) 0.8 % (0.0-5.0); EOSINOPHILS # (AUTO) 0.11 K/uL (0.00-0.70); EOSINOPHILS % (AUTO) 2.9 % (0.0-8.0); HEMATOCRIT 29.8 % (36-48); IMMATURE GRANULOCYTE ABSOLUTE 0.01 K/uL (0-1); LYMPHOCYTES # (AUTO) 1.4 K/uL (1.0-4.8); LYMPHOCYTES % (AUTO) 36.7 % (21.0-51.0); MEAN CORPUSCULAR HEMOGLOBIN 30.5 pg (27.0-33.0); MEAN CORPUSCULAR HGB CONC 33.6 g/dL (32.0-36.0); MEAN CORPUSCULAR VOLUME 90.9 fL (79-99); MONOCYTES # (AUTO) 0.5 K/uL (0.1-1.0); MONOCYTES % (AUTO) 12.3 % (3.0-13.0); NEUTROPHILS # (AUTO) 1.8 K/uL (1.8-7.7); PLATELET COUNT (AUTO) 122 K/uL (130-400); RED BLOOD CELL COUNT(AUTO) 3.28 MIL/uL (4.00-5.50); RED CELL DISTRIBUTION WIDTH 12.6 % (11.0-15.5); WHITE BLOOD COUNT (AUTO) 3.8 K/uL (4.8-10.8)
[2023-08-09 05:12] LABS: CREATININE 0.9 mg/dL (0.5-1.5); POTASSIUM 4.2 mmol/L (3.5-5.1)
[2023-08-09] MEDS: ZOSYN 3.375GM+NS 50ML 50 ML IVPB SCH (05:16)
[2023-08-09] MEDS: INSULIN HUMULIN R 100 UNIT/ML 3ML SQ SCH (06:14)
[2023-08-09 08:00] VITALS: BP 136/51; PULSE 54; RESP 18
[2023-08-09 08:36] VITALS: O2SAT 100
[2023-08-09] MEDS: ENOXAPARIN SODIUM 30 MG/0.3 ML SQ SCH (08:42)
[2023-08-09] MEDS: FAMOTIDINE 20MG TAB PO SCH (08:43)
[2023-08-09] MEDS ORDERED: LISINOPRIL 40 MG TABLET PO SCH (09:00)
[2023-08-09] MEDS ORDERED: CETIRIZINE HCL 5 MG TABLET PO SCH (09:00)
[2023-08-09] MEDS ORDERED: Vitamin D3 25 MCG PO SCH (09:00)
[2023-08-09] MEDS ORDERED: LACT10SO9 PO (09:51)
[2023-08-09] MEDS ORDERED: CEPH500B PO (09:51)
[2023-08-09] MEDS ORDERED: CHOL100020 PO (09:51)
[2023-08-09 11:00] VITALS: BP 148/64; PULSE 60; RESP 18
== END 2023-08-09 11:35 | disposition home or self-care (01) ==
LOC: EDH 00:02 → EDHIP 00:03 → INTOOBSV 00:03 → 3DH 04:30
PROVIDERS: ADMIT Internal Medicine; ATTEND Internal Medicine
DX: N39.0 Urinary tract infection, site not specified (principal); E11.9 Type 2 diabetes mellitus without complications; I10 Essential (primary) hypertension; F03.90 Unspecified dementia, unspecified severity, without behavioral disturbance, psychotic disturbance, mood disturbance, and anxiety; Z79.899 Other long term (current) drug therapy; Z90.89 Acquired absence of other organs
CPT/HCPCS: 99285; 96366 ×2; 96365; 97161; 71045; 96375; 97116; 96372 ×2; 84484; 80053; 83690; 85025 ×2; 87088; 82948 ×6; 81001; 36415 ×2; 93005; 80048; J7030; J1650 ×2; J0696; J2543 ×4; G0378

== ENCOUNTER 2023-08-22 16:59 | Emergency (ER) | payer OTHER ==
[~2023-08-22] VITALS: Ht 160 cm; Wt 62.1 kg
[~2023-08-22 16:59] MED LIST changes: +CETI10TA57 PO; -HYDR-4060 PO; -MACR100 PO; -METO-296 PO
[2023-08-22] MEDS ORDERED: ACETAMINOPHEN 500 MG TABLET PO ONE (17:30)
[2023-08-22 17:43] LABS: BASOPHILS # (AUTO) 0.04 K/uL (0.00-0.20); BASOPHILS % (AUTO) 0.9 % (0.0-5.0); EOSINOPHILS # (AUTO) 0.07 K/uL (0.00-0.70); EOSINOPHILS % (AUTO) 1.5 % (0.0-8.0); HEMATOCRIT 34.7 % (36-48); IMMATURE GRANULOCYTE ABSOLUTE 0.01 K/uL (0-1); LYMPHOCYTES # (AUTO) 1.5 K/uL (1.0-4.8); LYMPHOCYTES % (AUTO) 32.5 % (21.0-51.0); MEAN CORPUSCULAR HEMOGLOBIN 31.2 pg (27.0-33.0); MEAN CORPUSCULAR HGB CONC 34.9 g/dL (32.0-36.0); MEAN CORPUSCULAR VOLUME 89.4 fL (79-99); MONOCYTES # (AUTO) 0.5 K/uL (0.1-1.0); MONOCYTES % (AUTO) 10.5 % (3.0-13.0); NEUTROPHILS # (AUTO) 2.5 K/uL (1.8-7.7); NEUTROPHILS % (AUTO) 54.4 % (40.0-77.0); PLATELET COUNT (AUTO) 176 K/uL (130-400); RED BLOOD CELL COUNT(AUTO) 3.88 MIL/uL (4.00-5.50); RED CELL DISTRIBUTION WIDTH 12.7 % (11.0-15.5); WHITE BLOOD COUNT (AUTO) 4.6 K/uL (4.8-10.8)
[2023-08-22 18:00] LABS: APPEARANCE,URINE CLEAR (CLEAR); BILIRUBIN,URINE NEGATIVE (NEGATIVE); COLOR,URINE COLORLESS (YELLOW); GLUCOSE, URINE (UA) NEGATIVE (NEGATIVE); KETONES,URINE NEGATIVE (NEGATIVE); LEUKOCYTE ESTERASE ,URINE 250 Leu/uL (NEGATIVE); NITRATE,URINE NEGATIVE (NEGATIVE); OCCULT BLOOD,URINE NEGATIVE (NEGATIVE); PH,URINE 5.5 (5.0-8.0); PROTEIN,URINE NEGATIVE (NEGATIVE); UROBILINOGEN,URINE 0.2 mg/dL (0.2-1.0)
[2023-08-22 18:04] LABS: ADD UA MICROSCOPIC YES
[2023-08-22 18:05] LABS: BACTERIA,URINE RARE /HPF (None Seen); SQUAMOUS EPITHELIAL CELL,UR RARE /HPF (0-2); WBC,URINE 26-50 /HPF (0-1)
[2023-08-22 18:57] LABS: POTASSIUM 4.1 mmol/L (3.5-5.1)
[2023-08-22] MEDS ORDERED: BISACODYL 10 MG SUPP.RECT RC ONE (19:00)
[2023-08-22] MEDS ORDERED: CEFTRIAXONE 1G VIAL IVPB ONE (19:00)
[2023-08-22 19:02] LABS: ALBUMIN 3.1 g/dL (3.5-5.0); BILIRUBIN,TOTAL 0.5 mg/dL (0.2-1.0); TOTAL PROTEIN, SERUM 6.9 g/dL (6.0-8.3)
[2023-08-22] MEDS ORDERED: CEFU500T67 PO (20:46)
[2023-08-22] MEDS ORDERED: PEG 3350/NA SULF,BICARB,CL/KCL 4000 ML SOLN PO ONE (21:00)
[2023-08-22 21:18] VITALS: BP 150/89; PULSE 62; RESP 18; O2SAT 100
== END 2023-08-22 21:20 | disposition home or self-care (01) ==
LOC: EDH 16:59
DX: N39.0 Urinary tract infection, site not specified (principal); K59.00 Constipation, unspecified; I10 Essential (primary) hypertension; E11.9 Type 2 diabetes mellitus without complications; Z90.49 Acquired absence of other specified parts of digestive tract; Z79.899 Other long term (current) drug therapy; Z98.890 Other specified postprocedural states
CPT/HCPCS: 99285; 74176; 96365; 71045; 96366; 84484; 80053; 83690; 85025; 87077; 87088; 87186; 81001; 36415; 93005; J0696

== ENCOUNTER 2023-09-17 00:39 | Emergency (ER) | payer OTHER ==
[~2023-09-17] VITALS: Ht 160 cm; Wt 59.9 kg
[~2023-09-17 00:39] MED LIST changes: +CEFU500T67 PO
[2023-09-17 01:12] LABS: BASOPHILS # (AUTO) 0.03 K/uL (0.00-0.20); BASOPHILS % (AUTO) 0.6 % (0.0-5.0); EOSINOPHILS # (AUTO) 0.11 K/uL (0.00-0.70); EOSINOPHILS % (AUTO) 2.3 % (0.0-8.0); HEMATOCRIT 34.5 % (36-48); IMMATURE GRANULOCYTE ABSOLUTE 0.01 K/uL (0-1); LYMPHOCYTES # (AUTO) 1.7 K/uL (1.0-4.8); LYMPHOCYTES % (AUTO) 35.8 % (21.0-51.0); MEAN CORPUSCULAR HEMOGLOBIN 30.8 pg (27.0-33.0); MEAN CORPUSCULAR HGB CONC 34.2 g/dL (32.0-36.0); MEAN CORPUSCULAR VOLUME 90.1 fL (79-99); MONOCYTES # (AUTO) 0.5 K/uL (0.1-1.0); MONOCYTES % (AUTO) 11.2 % (3.0-13.0); NEUTROPHILS # (AUTO) 2.4 K/uL (1.8-7.7); NEUTROPHILS % (AUTO) 49.9 % (40.0-77.0); PLATELET COUNT (AUTO) 155 K/uL (130-400); RED BLOOD CELL COUNT(AUTO) 3.83 MIL/uL (4.00-5.50); RED CELL DISTRIBUTION WIDTH 12.1 % (11.0-15.5); WHITE BLOOD COUNT (AUTO) 4.8 K/uL (4.8-10.8)
[2023-09-17 01:22] LABS: CREATININE 0.9 mg/dL (0.5-1.5); POTASSIUM 4.5 mmol/L (3.5-5.1)
[2023-09-17 01:30] LABS: ALBUMIN 3.2 g/dL (3.5-5.0); BILIRUBIN,TOTAL 0.5 mg/dL (0.2-1.0); MAGNESIUM 1.7 mg/dL (1.80-2.40); TOTAL PROTEIN, SERUM 7.1 g/dL (6.0-8.3)
[2023-09-17] MEDS ORDERED: PEG 3350/NA SULF,BICARB,CL/KCL 4000 ML SOLN PO ONE (01:30)
[2023-09-17 03:03] LABS: APPEARANCE,URINE CLEAR (CLEAR); BILIRUBIN,URINE NEGATIVE (NEGATIVE); COLOR,URINE COLORLESS (YELLOW); GLUCOSE, URINE (UA) NEGATIVE (NEGATIVE); KETONES,URINE NEGATIVE (NEGATIVE); LEUKOCYTE ESTERASE ,URINE NEGATIVE Leu/uL (NEGATIVE); NITRATE,URINE NEGATIVE (NEGATIVE); OCCULT BLOOD,URINE NEGATIVE (NEGATIVE); PROTEIN,URINE NEGATIVE (NEGATIVE); UROBILINOGEN,URINE 0.2 mg/dL (0.2-1.0)
[2023-09-17 03:09] LABS: ADD UA MICROSCOPIC NO
[2023-09-17] MEDS ORDERED: HYDRALAZINE 20MG/ML VIAL IV ONE (04:00)
[2023-09-17] MEDS ORDERED: IOHEXOL-350 75 ML VIAL IV ONE (04:37)
[2023-09-17 06:30] VITALS: BP 125/60; PULSE 86; RESP 16; O2SAT 96
== END 2023-09-17 06:40 | disposition home or self-care (01) ==
LOC: EDH 00:39
DX: K59.00 Constipation, unspecified (principal); R10.9 Unspecified abdominal pain; I10 Essential (primary) hypertension; E11.9 Type 2 diabetes mellitus without complications; N39.0 Urinary tract infection, site not specified; Z90.49 Acquired absence of other specified parts of digestive tract; Z79.899 Other long term (current) drug therapy; Z98.890 Other specified postprocedural states
CPT/HCPCS: 99285; 74177; 96374; 71045; 83735; 84484; 80053; 83690; 85025; 83605; 81003; 36415; 93005; J0360; Q9967

== ENCOUNTER 2023-11-02 16:15 | Inpatient (IN) | payer OTHER ==
[~2023-11-02] VITALS: Ht 160 cm; Wt 60.4 kg
[2023-11-02 17:37] LABS: BASOPHILS # (AUTO) 0.03 K/uL (0.00-0.20); BASOPHILS % (AUTO) 0.6 % (0.0-5.0); EOSINOPHILS # (AUTO) 0.07 K/uL (0.00-0.70); EOSINOPHILS % (AUTO) 1.4 % (0.0-8.0); HEMATOCRIT 35.4 % (36-48); IMMATURE GRANULOCYTE ABSOLUTE 0.01 K/uL (0-1); LYMPHOCYTES # (AUTO) 1.4 K/uL (1.0-4.8); LYMPHOCYTES % (AUTO) 28.5 % (21.0-51.0); MEAN CORPUSCULAR HEMOGLOBIN 30.2 pg (27.0-33.0); MEAN CORPUSCULAR HGB CONC 33.3 g/dL (32.0-36.0); MEAN CORPUSCULAR VOLUME 90.5 fL (79-99); MONOCYTES # (AUTO) 0.5 K/uL (0.1-1.0); MONOCYTES % (AUTO) 10.4 % (3.0-13.0); NEUTROPHILS # (AUTO) 2.9 K/uL (1.8-7.7); NEUTROPHILS % (AUTO) 58.9 % (40.0-77.0); PLATELET COUNT (AUTO) 155 K/uL (130-400); RED BLOOD CELL COUNT(AUTO) 3.91 MIL/uL (4.00-5.50); RED CELL DISTRIBUTION WIDTH 12.5 % (11.0-15.5)
[2023-11-02 17:48] LABS: CREATININE 0.8 mg/dL (0.5-1.5); POTASSIUM 4.2 mmol/L (3.5-5.1)
[2023-11-02 17:52] LABS: ALBUMIN 3.2 g/dL (3.5-5.0); BILIRUBIN,TOTAL 0.4 mg/dL (0.2-1.0); TOTAL PROTEIN, SERUM 7.1 g/dL (6.0-8.3)
[2023-11-02] MEDS ORDERED: KETOROLAC 15MG/ML VIAL (15MG/ML) IV ONE (18:30)
[2023-11-02] MEDS ORDERED: IOHEXOL-350 75 ML VIAL IV ONE (20:36)
[2023-11-02] MEDS ORDERED: LACTULOSE 20 GM/30 ML UDCUP PO ONE (22:00)
[2023-11-02 22:09] LABS: APPEARANCE,URINE CLOUDY (CLEAR); BILIRUBIN,URINE NEGATIVE (NEGATIVE); COLOR,URINE LIGHT-YELLOW (YELLOW); GLUCOSE, URINE (UA) NEGATIVE (NEGATIVE); KETONES,URINE NEGATIVE (NEGATIVE); LEUKOCYTE ESTERASE ,URINE 500 Leu/uL (NEGATIVE); NITRATE,URINE NEGATIVE (NEGATIVE); OCCULT BLOOD,URINE NEGATIVE (NEGATIVE); PH,URINE 6.5 (5.0-8.0); PROTEIN,URINE NEGATIVE (NEGATIVE); UROBILINOGEN,URINE 0.2 mg/dL (0.2-1.0)
[2023-11-02 22:10] LABS: ADD UA MICROSCOPIC YES
[2023-11-02 22:13] LABS: BACTERIA,URINE MOD /HPF (None Seen); MUCUS,URINE RARE LPF (None Seen); NON-SQUAMOUS EPITHELIAL CELL 3 /HPF (0-2); OTHER CASTS, URINE 1 /LPF (None Seen); SQUAMOUS EPITHELIAL CELL,UR FEW /HPF (0-2); WBC,URINE 51-100 /HPF (0-1)
[2023-11-02] MEDS ORDERED: AMOX/CLAV 875/125MG TAB PO ONE (23:00)
[2023-11-02] MEDS: 0.9%NACL 1000ML 1,000 ML IV SCH (23:27)
[2023-11-02] MEDS: CEFTRIAXONE 2GM VIAL IVPB SCH (23:28)
[2023-11-02] MEDS ORDERED: ACETAMINOPHEN 325 MG TAB PO PRN (23:30)
[2023-11-02] MEDS ORDERED: MAGNESIUM 2GM PREMIX 50ML 50 ML IV PRN (23:30)
[2023-11-02] MEDS ORDERED: POTASSIUM CHLORIDE 10% ELIXIR 20 MEQ/15 ML UDCUP PO PRN (23:30)
[2023-11-02] MEDS ORDERED: KCL 20 MEQ ERTAB PO PRN (23:30)
[2023-11-02] MEDS ORDERED: ONDANSETRON 4MG INJ IV PRN (23:30)
[2023-11-02] MEDS ORDERED: POTASSIUM CHLORIDE 20MEQ/100ML 100 ML IV PRN (23:30)
[2023-11-02] MEDS ORDERED: CEFTRIAXONE 1G VIAL 2 GM in 0.9%NACL 100ML 100 ML IV SCH (23:30)
[2023-11-02] MEDS ORDERED: MORPHINE 2 MG SYG IV PRN ×2 (23:30)
[2023-11-02] MEDS: IBUPROFEN 600 MG TABLET PO SCH (23:34)
[2023-11-02] MEDS ORDERED: VITAMIN D3 (23:46)
[2023-11-03] MEDS: IBUPROFEN 600 MG TABLET PO SCH ×2 (05:30→10:54)
[2023-11-03 06:51] LABS: BASOPHILS # (AUTO) 0.03 K/uL (0.00-0.20); BASOPHILS % (AUTO) 0.8 % (0.0-5.0); EOSINOPHILS # (AUTO) 0.14 K/uL (0.00-0.70); EOSINOPHILS % (AUTO) 3.8 % (0.0-8.0); IMMATURE GRANULOCYTE ABSOLUTE 0.01 K/uL (0-1); LYMPHOCYTES # (AUTO) 1.2 K/uL (1.0-4.8); LYMPHOCYTES % (AUTO) 31.8 % (21.0-51.0); MEAN CORPUSCULAR HEMOGLOBIN 29.9 pg (27.0-33.0); MEAN CORPUSCULAR HGB CONC 34.1 g/dL (32.0-36.0); MEAN CORPUSCULAR VOLUME 87.6 fL (79-99); MONOCYTES # (AUTO) 0.5 K/uL (0.1-1.0); MONOCYTES % (AUTO) 13.7 % (3.0-13.0); NEUTROPHILS # (AUTO) 1.8 K/uL (1.8-7.7); NEUTROPHILS % (AUTO) 49.6 % (40.0-77.0); PLATELET COUNT (AUTO) 132 K/uL (130-400); RED BLOOD CELL COUNT(AUTO) 3.31 MIL/uL (4.00-5.50); RED CELL DISTRIBUTION WIDTH 12.5 % (11.0-15.5); WHITE BLOOD COUNT (AUTO) 3.7 K/uL (4.8-10.8)
[2023-11-03 06:52] LABS: HEMOGLOBIN A1C 5.4 % (4.0-6.0)
[2023-11-03 06:57] LABS: INR 1.03 (0.85-1.15); PROTHROMBIN TIME 11.9 SEC (9.6-11.6)
[2023-11-03 06:59] LABS: PARTIAL THROMBOPLASTIN TIME 27.3 SEC (26.3-35.5)
[2023-11-03 07:01] LABS: CREATININE 0.9 mg/dL (0.5-1.5); MAGNESIUM 1.4 mg/dL (1.80-2.40); PHOSPHORUS 3.3 mg/dL (2.5-4.9); POTASSIUM 3.9 mmol/L (3.5-5.1)
[2023-11-03] MEDS: INSULIN HUMULIN R 100 UNIT/ML 3ML SQ SCH ×2 (07:30→10:47)
[2023-11-03] MEDS: FAMOTIDINE 20MG VIAL IV SCH (08:08)
[2023-11-03] MEDS ORDERED: IBUPROFEN 600 MG TABLET PO PRN (12:00)
[2023-11-03] MEDS ORDERED: LISINOPRIL 20 MG TABLET PO ONE (12:00)
[2023-11-03 12:47] LABS: CHOLESTEROL 109 mg/dL (<200); HDL CHOLESTEROL 34 mg/dL (35-85); LDL DIRECT 68 mg/dL (0-99); TRIGLYCERIDES 59 mg/dL (30-200)
[2023-11-03 12:54] LABS: RETICULOCYTE % (AUTO) 1.14 % (0.42-2.23)
[2023-11-03 13:20] LABS: % IRON SATURATION 32.5 % (22-44)
[2023-11-03 17:30] VITALS: BP 164/74; PULSE 77; RESP 19
[2023-11-03] MEDS: ACETAMINOPHEN 325 MG TAB PO PRN (18:24)
[2023-11-03 19:00] VITALS: BP 168/66; PULSE 65; RESP 22
[2023-11-03] MEDS ORDERED: CLONIDINE HCL 0.1 MG TABLET PO PRN (21:30)
[2023-11-03] MEDS: 0.9%NACL 1000ML 1,000 ML IV SCH (21:51)
[2023-11-03] MEDS: CEFTRIAXONE 2GM VIAL IVPB SCH (22:30)
[2023-11-04] VITALS: BP 119/60; PULSE 56; RESP 20
[2023-11-04 04:00] VITALS: BP 131/50; PULSE 54; RESP 20
[2023-11-04] MEDS: INSULIN HUMULIN R 100 UNIT/ML 3ML SQ SCH ×4 (05:48→21:00)
[2023-11-04 08:00] VITALS: BP 108/73; PULSE 52; RESP 18; O2SAT 97
[2023-11-04] MEDS: FAMOTIDINE 20MG VIAL IV SCH (08:54)
[2023-11-04] MEDS: LISINOPRIL 20 MG TABLET PO SCH (08:54)
[2023-11-04 12:00] VITALS: BP 117/37; PULSE 60; RESP 18
[2023-11-04] MEDS ORDERED: LACTULOSE 20 GM/30 ML UDCUP PO PRN (13:30)
[2023-11-04 19:00] VITALS: BP 161/70; PULSE 59; RESP 20
[2023-11-04 20:00] VITALS: O2SAT 100
[2023-11-04] MEDS ORDERED: HALOPERIDOL INJ 5 MG/ML VIAL IV SCH (20:00)
[2023-11-04] MEDS: CEFTRIAXONE 2GM VIAL IVPB SCH (22:36)
[2023-11-05] VITALS: BP 120/46; PULSE 50; RESP 20
[2023-11-05 05:22] LABS: BASOPHILS # (AUTO) 0.03 K/uL (0.00-0.20); BASOPHILS % (AUTO) 0.8 % (0.0-5.0); EOSINOPHILS # (AUTO) 0.13 K/uL (0.00-0.70); EOSINOPHILS % (AUTO) 3.6 % (0.0-8.0); HEMATOCRIT 28.6 % (36-48); IMMATURE GRANULOCYTE ABSOLUTE 0.01 K/uL (0-1); LYMPHOCYTES # (AUTO) 1.1 K/uL (1.0-4.8); MEAN CORPUSCULAR HEMOGLOBIN 30.5 pg (27.0-33.0); MEAN CORPUSCULAR HGB CONC 33.6 g/dL (32.0-36.0); MEAN CORPUSCULAR VOLUME 90.8 fL (79-99); MONOCYTES # (AUTO) 0.5 K/uL (0.1-1.0); MONOCYTES % (AUTO) 14.3 % (3.0-13.0); NEUTROPHILS # (AUTO) 1.8 K/uL (1.8-7.7); PLATELET COUNT (AUTO) 125 K/uL (130-400); RED BLOOD CELL COUNT(AUTO) 3.15 MIL/uL (4.00-5.50); RED CELL DISTRIBUTION WIDTH 12.7 % (11.0-15.5); WHITE BLOOD COUNT (AUTO) 3.6 K/uL (4.8-10.8)
[2023-11-05 05:39] LABS: ALBUMIN 2.3 g/dL (3.5-5.0); BILIRUBIN,TOTAL 0.2 mg/dL (0.2-1.0); CREATININE 0.9 mg/dL (0.5-1.5); POTASSIUM 3.8 mmol/L (3.5-5.1); TOTAL PROTEIN, SERUM 5.6 g/dL (6.0-8.3)
[2023-11-05] MEDS: INSULIN HUMULIN R 100 UNIT/ML 3ML SQ SCH ×4 (07:06→20:46)
[2023-11-05 08:00] VITALS: BP 135/58; PULSE 50; RESP 18; O2SAT 97
[2023-11-05] MEDS: FAMOTIDINE 20MG VIAL IV SCH (09:04)
[2023-11-05] MEDS: LISINOPRIL 20 MG TABLET PO SCH (09:04)
[2023-11-05] MEDS: ACETAMINOPHEN 325 MG TAB PO PRN ×2 (09:11→13:18)
[2023-11-05 16:00] VITALS: BP 165/66; PULSE 58; RESP 18
[2023-11-05] MEDS ORDERED: RISPERIDONE 1 MG TABLET PO SCH (19:00)
[2023-11-05 20:00] VITALS: BP 114/60; PULSE 60; RESP 18; O2SAT 96
[2023-11-05] MEDS: CEFTRIAXONE 2GM VIAL IVPB SCH (22:31)
[2023-11-06] VITALS: BP 154/60; PULSE 63; RESP 18
[2023-11-06 04:00] VITALS: BP 130/54; PULSE 55; RESP 18
[2023-11-06] MEDS: INSULIN HUMULIN R 100 UNIT/ML 3ML SQ SCH ×2 (06:07→11:30)
[2023-11-06 08:00] VITALS: BP 144/70; PULSE 57; RESP 16; O2SAT 96
[2023-11-06] MEDS: FAMOTIDINE 20MG VIAL IV SCH (08:08)
[2023-11-06] MEDS ORDERED: RISPERIDONE 1 MG TABLET PO SCH (09:00)
[2023-11-06] MEDS ORDERED: LISINOPRIL 40 MG TABLET PO SCH (09:00)
[2023-11-06 12:00] VITALS: BP 162/72; PULSE 62; RESP 16
[2023-11-06] MEDS ORDERED: RISP1TAB89 PO ×2 (13:07)
== END 2023-11-06 16:00 | disposition home or self-care (01) | DRG 689 ==
LOC: EDH 16:15 → EDHIP 16:16 → 3AH 11-03 16:25
PROVIDERS: ADMIT Internal Medicine; ATTEND Internal Medicine
DX: N39.0 Urinary tract infection, site not specified (principal); G93.41 Metabolic encephalopathy; I31.39 Other pericardial effusion (noninflammatory); E87.1 Hypo-osmolality and hyponatremia; E11.9 Type 2 diabetes mellitus without complications; I10 Essential (primary) hypertension; I45.10 Unspecified right bundle-branch block; J45.909 Unspecified asthma, uncomplicated; E83.42 Hypomagnesemia; K59.00 Constipation, unspecified; N26.1 Atrophy of kidney (terminal); Z51.5 Encounter for palliative care; Z82.49 Family history of ischemic heart disease and other diseases of the circulatory system; Z83.3 Family history of diabetes mellitus; Z75.3 Unavailability and inaccessibility of health-care facilities; Z59.7 Insufficient social insurance and welfare support; Z98.891 History of uterine scar from previous surgery
CPT/HCPCS: 36415; 70450; 71250; 74177; 80048; 80053; 80061; 81001; 82550; 82607; 82728; 82948; 83036; 83605; 83690; 83735; 83880; 84100; 84145; 84484; 85025; 85610; 85730; 86850; 86900; 86901; 87040; 87088; 93005; 93306; G0378; J0696; J1630; J1885; J3475; J3490; J7030; Q9967

== ENCOUNTER 2024-01-23 21:24 | Emergency (ER) | payer MEDICAID, OTHER ==
[~2024-01-23] VITALS: Ht 152.4 cm; Wt 59.0 kg
[~2024-01-23 21:24] MED LIST changes: -CEFU500T67 PO; +RISP1TAB89 PO; +VITAMIN D3
[2024-01-23 23:37] LABS: APPEARANCE,URINE CLOUDY (CLEAR); BILIRUBIN,URINE NEGATIVE (NEGATIVE); COLOR,URINE LIGHT-YELLOW (YELLOW); GLUCOSE, URINE (UA) NEGATIVE (NEGATIVE); KETONES,URINE NEGATIVE (NEGATIVE); LEUKOCYTE ESTERASE ,URINE NEGATIVE Leu/uL (NEGATIVE); NITRATE,URINE NEGATIVE (NEGATIVE); OCCULT BLOOD,URINE NEGATIVE (NEGATIVE); PROTEIN,URINE NEGATIVE (NEGATIVE); UROBILINOGEN,URINE 0.2 mg/dL (0.2-1.0)
[2024-01-23 23:47] LABS: ADD UA MICROSCOPIC YES
[2024-01-23 23:48] LABS: BACTERIA,URINE RARE /HPF (None Seen); MUCUS,URINE RARE LPF (None Seen); SQUAMOUS EPITHELIAL CELL,UR RARE /HPF (0-2)
[2024-01-23 23:56] LABS: BASOPHILS # (AUTO) 0.05 K/uL (0.00-0.20); BASOPHILS % (AUTO) 1.1 % (0.0-5.0); EOSINOPHILS # (AUTO) 0.15 K/uL (0.00-0.70); EOSINOPHILS % (AUTO) 3.2 % (0.0-8.0); HEMATOCRIT 34.3 % (36-48); IMMATURE GRANULOCYTE ABSOLUTE 0.01 K/uL (0-1); LYMPHOCYTES # (AUTO) 1.7 K/uL (1.0-4.8); LYMPHOCYTES % (AUTO) 37.4 % (21.0-51.0); MEAN CORPUSCULAR HEMOGLOBIN 30.3 pg (27.0-33.0); MEAN CORPUSCULAR HGB CONC 33.2 g/dL (32.0-36.0); MEAN CORPUSCULAR VOLUME 91.2 fL (79-99); MONOCYTES # (AUTO) 0.5 K/uL (0.1-1.0); MONOCYTES % (AUTO) 10.6 % (3.0-13.0); NEUTROPHILS # (AUTO) 2.2 K/uL (1.8-7.7); NEUTROPHILS % (AUTO) 47.5 % (40.0-77.0); PLATELET COUNT (AUTO) 159 K/uL (130-400); RED BLOOD CELL COUNT(AUTO) 3.76 MIL/uL (4.00-5.50); RED CELL DISTRIBUTION WIDTH 12.6 % (11.0-15.5); WHITE BLOOD COUNT (AUTO) 4.6 K/uL (4.8-10.8)
[2024-01-24 00:27] LABS: CREATININE 0.8 mg/dL (0.5-1.0); POTASSIUM 4.2 mmol/L (3.5-5.1)
[2024-01-24 00:30] LABS: ALBUMIN 3.2 g/dL (3.5-5.0); BILIRUBIN,TOTAL 0.3 mg/dL (0.2-1.0); TOTAL PROTEIN, SERUM 7.3 g/dL (6.0-8.3)
[2024-01-24] MEDS: ACETAMINOPHEN 325 MG TAB PO ONE (04:12)
[2024-01-24] MEDS ORDERED: POLY17PO4 PO (06:59)
[2024-01-24 07:20] VITALS: BP 136/59; PULSE 63; RESP 18; O2SAT 99
== END 2024-01-24 07:21 | disposition home or self-care (01) ==
LOC: EDH 21:24
DX: G89.29 Other chronic pain (principal); M79.604 Pain in right leg; K59.00 Constipation, unspecified; Z79.899 Other long term (current) drug therapy; Z98.890 Other specified postprocedural states
CPT/HCPCS: 36415; 74176; 80053; 81001; 83690; 85025

== ENCOUNTER 2024-03-15 23:14 | Emergency (ER) | payer MEDICAID, OTHER ==
[~2024-03-15] VITALS: Ht 152.4 cm; Wt 59.0 kg
[~2024-03-15 23:14] MED LIST changes: +POLY17PO4 PO
[2024-03-15 23:56] LABS: BASOPHILS # (AUTO) 0.05 K/uL (0.00-0.20); BASOPHILS % (AUTO) 1.2 % (0.0-5.0); EOSINOPHILS # (AUTO) 0.11 K/uL (0.00-0.70); EOSINOPHILS % (AUTO) 2.5 % (0.0-8.0); HEMATOCRIT 31.9 % (36-48); IMMATURE GRANULOCYTE ABSOLUTE 0.01 K/uL (0-1); LYMPHOCYTES # (AUTO) 1.8 K/uL (1.0-4.8); LYMPHOCYTES % (AUTO) 40.6 % (21.0-51.0); MEAN CORPUSCULAR HEMOGLOBIN 30.9 pg (27.0-33.0); MEAN CORPUSCULAR HGB CONC 35.1 g/dL (32.0-36.0); MEAN CORPUSCULAR VOLUME 87.9 fL (79-99); MONOCYTES # (AUTO) 0.5 K/uL (0.1-1.0); MONOCYTES % (AUTO) 11.3 % (3.0-13.0); NEUTROPHILS # (AUTO) 1.9 K/uL (1.8-7.7); NEUTROPHILS % (AUTO) 44.2 % (40.0-77.0); PLATELET COUNT (AUTO) 152 K/uL (130-400); RED BLOOD CELL COUNT(AUTO) 3.63 MIL/uL (4.00-5.50); RED CELL DISTRIBUTION WIDTH 12.1 % (11.0-15.5); WHITE BLOOD COUNT (AUTO) 4.3 K/uL (4.8-10.8)
[2024-03-15 23:58] LABS: APPEARANCE,URINE CLEAR (CLEAR); BILIRUBIN,URINE NEGATIVE (NEGATIVE); COLOR,URINE COLORLESS (YELLOW); GLUCOSE, URINE (UA) NEGATIVE (NEGATIVE); KETONES,URINE NEGATIVE (NEGATIVE); LEUKOCYTE ESTERASE ,URINE 75 Leu/uL (NEGATIVE); NITRATE,URINE NEGATIVE (NEGATIVE); OCCULT BLOOD,URINE SMALL (NEGATIVE); PROTEIN,URINE NEGATIVE (NEGATIVE); UROBILINOGEN,URINE 0.2 mg/dL (0.2-1.0)
[2024-03-15 23:59] LABS: ADD UA MICROSCOPIC YES
[2024-03-16] LABS: CREATININE 0.8 mg/dL (0.5-1.0); POTASSIUM 4.2 mmol/L (3.5-5.1)
[2024-03-16 00:01] LABS: BACTERIA,URINE MOD /HPF (None Seen); RBC,URINE 0-1 /HPF (0-1)
[2024-03-16 00:04] LABS: ALBUMIN 3.2 g/dL (3.5-5.0); BILIRUBIN,TOTAL 0.3 mg/dL (0.2-1.0); TOTAL PROTEIN, SERUM 6.9 g/dL (6.0-8.3)
[2024-03-16] MEDS ORDERED: IOHEXOL-350 75 ML VIAL IV ONE (01:04)
[2024-03-16 01:32] VITALS: BP 152/58; PULSE 75; RESP 20; O2SAT 99
[2024-03-16] MEDS ORDERED: NITR100C4 PO (02:23)
[2024-03-16] MEDS: 0.9%NACL 1000ML 456 ML IV ONE (02:27)
[2024-03-16] MEDS: NITROFURANTOIN MONOHYD/M-CRYST 100 MG CAPSULE PO SCH (02:48)
[2024-03-16] MEDS ORDERED: NITROFURANTOIN MONOHYD/M-CRYST 100 MG CAPSULE PO SCH (09:00)
== END 2024-03-16 03:16 | disposition home or self-care (01) ==
LOC: EDH 23:14
DX: N39.0 Urinary tract infection, site not specified (principal); E86.0 Dehydration; E87.1 Hypo-osmolality and hyponatremia; E11.9 Type 2 diabetes mellitus without complications; I10 Essential (primary) hypertension; Z79.899 Other long term (current) drug therapy
CPT/HCPCS: 99285; 84484; 80053; 83690; 85025; 87077; 87088; 87186; 81001; 36415; 93005; 74177; J7030; Q9967

== ENCOUNTER 2024-03-28 23:59 | Emergency (ER) | payer OTHER ==
[~2024-03-28] VITALS: Ht 154.9 cm; Wt 60.3 kg
[~2024-03-28 23:59] MED LIST changes: +NITR100C4 PO
[2024-03-29 00:51] LABS: BASOPHILS # (AUTO) 0.03 K/uL (0.00-0.20); BASOPHILS % (AUTO) 0.7 % (0.0-5.0); EOSINOPHILS # (AUTO) 0.09 K/uL (0.00-0.70); EOSINOPHILS % (AUTO) 2.1 % (0.0-8.0); IMMATURE GRANULOCYTE ABSOLUTE 0.01 K/uL (0-1); LYMPHOCYTES # (AUTO) 1.6 K/uL (1.0-4.8); LYMPHOCYTES % (AUTO) 35.7 % (21.0-51.0); MEAN CORPUSCULAR HEMOGLOBIN 31.1 pg (27.0-33.0); MEAN CORPUSCULAR HGB CONC 35.3 g/dL (32.0-36.0); MEAN CORPUSCULAR VOLUME 88.2 fL (79-99); MONOCYTES # (AUTO) 0.7 K/uL (0.1-1.0); MONOCYTES % (AUTO) 15.2 % (3.0-13.0); NEUTROPHILS % (AUTO) 46.1 % (40.0-77.0); PLATELET COUNT (AUTO) 163 K/uL (130-400); RED BLOOD CELL COUNT(AUTO) 3.63 MIL/uL (4.00-5.50); RED CELL DISTRIBUTION WIDTH 12.5 % (11.0-15.5); WHITE BLOOD COUNT (AUTO) 4.3 K/uL (4.8-10.8)
[2024-03-29 00:53] LABS: APPEARANCE,URINE CLOUDY (CLEAR); BILIRUBIN,URINE NEGATIVE (NEGATIVE); COLOR,URINE YELLOW (YELLOW); GLUCOSE, URINE (UA) NEGATIVE (NEGATIVE); KETONES,URINE NEGATIVE (NEGATIVE); LEUKOCYTE ESTERASE ,URINE 500 Leu/uL (NEGATIVE); NITRATE,URINE NEGATIVE (NEGATIVE); PROTEIN,URINE NEGATIVE (NEGATIVE); UROBILINOGEN,URINE 0.2 mg/dL (0.2-1.0)
[2024-03-29 00:56] LABS: CREATININE 0.9 mg/dL (0.5-1.0); POTASSIUM 4.7 mmol/L (3.5-5.1)
[2024-03-29 00:58] LABS: ADD UA MICROSCOPIC YES
[2024-03-29 01:01] LABS: ALBUMIN 3.3 g/dL (3.5-5.0); BACTERIA,URINE RARE /HPF (None Seen); BILIRUBIN,TOTAL 0.4 mg/dL (0.2-1.0); MUCUS,URINE RARE LPF (None Seen); SQUAMOUS EPITHELIAL CELL,UR RARE /HPF (0-2); TOTAL PROTEIN, SERUM 7.1 g/dL (6.0-8.3); WBC CLUMP MANY /HPF (0-1); WBC,URINE TNTC /HPF (0-1)
[2024-03-29] MEDS ORDERED: SENN8.6T32 PO (03:11)
[2024-03-29] MEDS ORDERED: CIPR-278 PO (03:11)
[2024-03-29] MEDS: CEFTRIAXONE 1G VIAL IVPB ONE (04:20)
[2024-03-29] MEDS: SENNOSIDES 8.6 MG TABLET PO SCH (04:20)
[2024-03-29 04:21] VITALS: BP 164/93; PULSE 69; RESP 18; O2SAT 100
== END 2024-03-29 04:27 | disposition home or self-care (01) ==
LOC: EDH 23:59
DX: K59.00 Constipation, unspecified (principal); N39.0 Urinary tract infection, site not specified; I10 Essential (primary) hypertension; E11.9 Type 2 diabetes mellitus without complications; Z79.899 Other long term (current) drug therapy; Z90.49 Acquired absence of other specified parts of digestive tract; Z98.890 Other specified postprocedural states
CPT/HCPCS: 99285; 80053; 85025; 87077; 87088; 87186; 81001; 36415; 96374; 74018; J0696

== ENCOUNTER 2024-04-21 15:32 | Emergency (ER) | payer OTHER ==
[~2024-04-21] VITALS: Ht 160 cm; Wt 63.5 kg
[~2024-04-21 15:32] MED LIST changes: +CIPR-278 PO; +SENN8.6T32 PO
[2024-04-21 16:27] LABS: BASOPHILS # (AUTO) 0.03 K/uL (0.00-0.20); BASOPHILS % (AUTO) 0.7 % (0.0-5.0); EOSINOPHILS # (AUTO) 0.08 K/uL (0.00-0.70); EOSINOPHILS % (AUTO) 1.8 % (0.0-8.0); IMMATURE GRANULOCYTE ABSOLUTE 0.01 K/uL (0-1); LYMPHOCYTES # (AUTO) 1.3 K/uL (1.0-4.8); LYMPHOCYTES % (AUTO) 29.9 % (21.0-51.0); MEAN CORPUSCULAR HEMOGLOBIN 31.2 pg (27.0-33.0); MEAN CORPUSCULAR HGB CONC 33.8 g/dL (32.0-36.0); MEAN CORPUSCULAR VOLUME 92.1 fL (79-99); MONOCYTES # (AUTO) 0.6 K/uL (0.1-1.0); MONOCYTES % (AUTO) 12.9 % (3.0-13.0); NEUTROPHILS # (AUTO) 2.4 K/uL (1.8-7.7); NEUTROPHILS % (AUTO) 54.5 % (40.0-77.0); PLATELET COUNT (AUTO) 162 K/uL (130-400); RED BLOOD CELL COUNT(AUTO) 3.69 MIL/uL (4.00-5.50); RED CELL DISTRIBUTION WIDTH 12.4 % (11.0-15.5); WHITE BLOOD COUNT (AUTO) 4.4 K/uL (4.8-10.8)
[2024-04-21 16:42] LABS: CREATININE 0.8 mg/dL (0.5-1.0)
[2024-04-21 16:46] LABS: ALBUMIN 3.3 g/dL (3.5-5.0); BILIRUBIN,TOTAL 0.3 mg/dL (0.2-1.0); TOTAL PROTEIN, SERUM 7.1 g/dL (6.0-8.3)
[2024-04-21 19:44] LABS: APPEARANCE,URINE CLEAR (CLEAR); COLOR,URINE STRAW (YELLOW)
[2024-04-21 19:45] LABS: LEUKOCYTE ESTERASE ,URINE MODERATE Leu/uL (NEGATIVE); NITRATE,URINE NEGATIVE (NEGATIVE); PROTEIN,URINE NEGATIVE (NEGATIVE); UROBILINOGEN,URINE 0.2 mg/dL (0.2-1.0)
[2024-04-21 19:46] LABS: KETONES,URINE NEGATIVE (NEGATIVE); OCCULT BLOOD,URINE MODERATE (NEGATIVE); PH,URINE 6.5 (5.0-8.0)
[2024-04-21 19:47] LABS: ADD UA MICROSCOPIC YES; BILIRUBIN,URINE NEGATIVE (NEGATIVE); GLUCOSE, URINE (UA) NEGATIVE (NEGATIVE)
[2024-04-21 20:00] VITALS: BP 144/71; PULSE 60; RESP 18; O2SAT 100
[2024-04-21 20:08] LABS: RBC,URINE 0-1 /HPF (0-1)
[2024-04-21 20:10] LABS: BACTERIA,URINE Rare /HPF (None Seen); SQUAMOUS EPITHELIAL CELL,UR Rare /HPF (0-2)
[2024-04-21] MEDS ORDERED: LACT10SO9 PO (20:28)
[2024-04-21] MEDS ORDERED: CIPR500T10 PO (20:28)
== END 2024-04-21 21:18 | disposition home or self-care (01) ==
LOC: EDH 15:32
DX: N39.0 Urinary tract infection, site not specified (principal); K59.00 Constipation, unspecified; I10 Essential (primary) hypertension; Z79.2 Long term (current) use of antibiotics; Z90.49 Acquired absence of other specified parts of digestive tract; Z98.890 Other specified postprocedural states
CPT/HCPCS: 36415; 74176; 80053; 81001; 83690; 85025; 87086

== ENCOUNTER 2024-05-10 23:59 | Emergency (ER) | payer OTHER ==
[~2024-05-10] VITALS: Ht 160 cm; Wt 63.5 kg
[~2024-05-10 23:59] MED LIST changes: +CIPR500T10 PO
[2024-05-11 00:36] LABS: BASOPHILS # (AUTO) 0.04 K/uL (0.00-0.20); BASOPHILS % (AUTO) 0.7 % (0.0-5.0); EOSINOPHILS # (AUTO) 0.12 K/uL (0.00-0.70); EOSINOPHILS % (AUTO) 2.2 % (0.0-8.0); HEMATOCRIT 31.4 % (36-48); IMMATURE GRANULOCYTE ABSOLUTE 0.01 K/uL (0-1); LYMPHOCYTES # (AUTO) 1.6 K/uL (1.0-4.8); LYMPHOCYTES % (AUTO) 28.2 % (21.0-51.0); MEAN CORPUSCULAR HEMOGLOBIN 30.1 pg (27.0-33.0); MEAN CORPUSCULAR HGB CONC 33.4 g/dL (32.0-36.0); MONOCYTES # (AUTO) 0.6 K/uL (0.1-1.0); MONOCYTES % (AUTO) 11.3 % (3.0-13.0); NEUTROPHILS # (AUTO) 3.2 K/uL (1.8-7.7); NEUTROPHILS % (AUTO) 57.4 % (40.0-77.0); PLATELET COUNT (AUTO) 144 K/uL (130-400); RED BLOOD CELL COUNT(AUTO) 3.49 MIL/uL (4.00-5.50); RED CELL DISTRIBUTION WIDTH 12.6 % (11.0-15.5); WHITE BLOOD COUNT (AUTO) 5.5 K/uL (4.8-10.8)
[2024-05-11 00:41] LABS: APPEARANCE,URINE CLEAR (CLEAR); BILIRUBIN,URINE SMALL mg/dL (NEGATIVE); COLOR,URINE YELLOW (YELLOW); GLUCOSE, URINE (UA) NEGATIVE (NEGATIVE); KETONES,URINE 5 mg/dL (NEGATIVE); LEUKOCYTE ESTERASE ,URINE SMALL Leu/uL (NEGATIVE); NITRATE,URINE NEGATIVE (NEGATIVE); OCCULT BLOOD,URINE NEGATIVE (NEGATIVE); PH,URINE 5.5 (5.0-8.0); PROTEIN,URINE TRACE mg/dL (NEGATIVE); UROBILINOGEN,URINE 0.2 mg/dL (0.2-1.0)
[2024-05-11 00:44] LABS: ADD UA MICROSCOPIC YES
[2024-05-11 00:44] LABS: POTASSIUM 4.2 mmol/L (3.5-5.1)
[2024-05-11 00:48] LABS: ALBUMIN 3.1 g/dL (3.5-5.0); BILIRUBIN,TOTAL 0.2 mg/dL (0.2-1.0); TOTAL PROTEIN, SERUM 6.8 g/dL (6.0-8.3)
[2024-05-11] MEDS: PANTOPRAZOLE 40 MG/VIAL IVP ONE (00:51)
[2024-05-11 00:55] LABS: BACTERIA,URINE None Seen /HPF (None Seen); RBC,URINE 0-1 /HPF (0-1)
[2024-05-11 00:58] LABS: SQUAMOUS EPITHELIAL CELL,UR Rare /HPF (0-2)
[2024-05-11] MEDS ORDERED: CEPH500B PO (01:44)
[2024-05-11] MEDS: CEFTRIAXONE 1G VIAL IVPB ONE (02:25)
[2024-05-11 02:54] VITALS: BP 112/48; PULSE 64; RESP 16; O2SAT 100
== END 2024-05-11 02:56 | disposition home or self-care (01) ==
LOC: EDH 23:59
DX: N39.0 Urinary tract infection, site not specified (principal); I31.39 Other pericardial effusion (noninflammatory); R10.12 Left upper quadrant pain; E11.9 Type 2 diabetes mellitus without complications; I10 Essential (primary) hypertension; Z90.49 Acquired absence of other specified parts of digestive tract; Z98.890 Other specified postprocedural states
CPT/HCPCS: 99285; 84484; 80053; 83690; 85025; 81001; 36415; 71045; 74176; 96374; 96375; 93005; J0696; J2470

== ENCOUNTER 2024-06-20 21:31 | Emergency (ER) | payer SELFPAY ==
[~2024-06-20] VITALS: Ht 144.8 cm; Wt 61.7 kg
[2024-06-20 22:31] LABS: APPEARANCE,URINE CLEAR (CLEAR); BILIRUBIN,URINE NEGATIVE (NEGATIVE); COLOR,URINE COLORLESS (YELLOW); GLUCOSE, URINE (UA) NEGATIVE (NEGATIVE); KETONES,URINE NEGATIVE (NEGATIVE); LEUKOCYTE ESTERASE ,URINE NEGATIVE Leu/uL (NEGATIVE); NITRATE,URINE NEGATIVE (NEGATIVE); OCCULT BLOOD,URINE NEGATIVE (NEGATIVE); PROTEIN,URINE NEGATIVE (NEGATIVE); UROBILINOGEN,URINE 0.2 mg/dL (0.2-1.0)
[2024-06-20 22:43] LABS: CREATININE 0.9 mg/dL (0.5-1.0); POTASSIUM 4.7 mmol/L (3.5-5.1)
[2024-06-20 22:45] LABS: BASOPHILS # (AUTO) 0.03 K/uL (0.00-0.20); BASOPHILS % (AUTO) 0.7 % (0.0-5.0); EOSINOPHILS # (AUTO) 0.09 K/uL (0.00-0.70); HEMATOCRIT 35.6 % (36-48); IMMATURE GRANULOCYTE ABSOLUTE 0.01 K/uL (0-1); LYMPHOCYTES # (AUTO) 1.2 K/uL (1.0-4.8); MEAN CORPUSCULAR HEMOGLOBIN 30.4 pg (27.0-33.0); MEAN CORPUSCULAR HGB CONC 33.4 g/dL (32.0-36.0); MEAN CORPUSCULAR VOLUME 90.8 fL (79-99); MONOCYTES # (AUTO) 0.5 K/uL (0.1-1.0); MONOCYTES % (AUTO) 11.7 % (3.0-13.0); NEUTROPHILS # (AUTO) 2.5 K/uL (1.8-7.7); NEUTROPHILS % (AUTO) 57.4 % (40.0-77.0); PLATELET COUNT (AUTO) 128 K/uL (130-400); RED BLOOD CELL COUNT(AUTO) 3.92 MIL/uL (4.00-5.50); RED CELL DISTRIBUTION WIDTH 12.9 % (11.0-15.5); WHITE BLOOD COUNT (AUTO) 4.4 K/uL (4.8-10.8)
[2024-06-20 22:47] LABS: ADD UA MICROSCOPIC NO
[2024-06-20 22:48] LABS: BILIRUBIN,TOTAL 0.3 mg/dL (0.2-1.0); TOTAL PROTEIN, SERUM 6.6 g/dL (6.0-8.3)
[2024-06-21] MEDS: BisaCODYL 10 MG SUPP.RECT RC ONE (00:41)
[2024-06-21 01:08] VITALS: BP 162/56; PULSE 88; RESP 18; O2SAT 98
== END 2024-06-21 01:21 | disposition home or self-care (01) ==
LOC: EDH 21:31
DX: K59.00 Constipation, unspecified (principal); E11.9 Type 2 diabetes mellitus without complications; Z79.899 Other long term (current) drug therapy; Z98.890 Other specified postprocedural states
CPT/HCPCS: 36415; 74018; 80053; 81003; 84484; 85025; 93005

== ENCOUNTER 2024-08-13 16:16 | Emergency (ER) | payer MEDICAID ==
[~2024-08-13] VITALS: Ht 160 cm; Wt 61.2 kg
--- NOTE | 2024-08-13 16:49 | ERN ---
ED Note History of Present Illness Stated Complaint: LOWER ABDOMINAL PAIN Chief Complaint: Painful Urination Time Seen by MD: 16:43 Dictation: HPI: A 88-year-old female with past medical history of hypertension, presented to ED with complaints of right lower quadrant pain and painful urination of 2 days' duration. No history of hematuria, fever, nausea, vomiting, loose stools or constipation reported. Her pain is intermittent colic type, 2/10 in intensity with no particular aggravating or relieving factors. She is stable in no acute distress. Allergies: Coded Allergies: No Known Drug Allergies (Unverified Allergy, Unknown, 07/25/22) Home Meds Active Scripts Phenazopyridine HCl (Pyridium) 100 Mg Tab, 100 MG PO DAILY for 3 Days, #3 TAB 0 Refills Prov:NABEEL DAY MD 08/13/24 Cephalexin Monohydrate (Keflex) 500 Mg Cap, 500 MG PO BID for 5 Days, #10 CAP Prov:VANESA PRITCHETT 05/11/24 Lactulose (Lactulose) 20 Gram/30 Ml Solution, 20 GM PO BID, #180 ML Prov:JOSE ANTONIO CERVANTES 04/21/24 Ciprofloxacin HCl (Ciprofloxacin HCl) 500 Mg Tablet, 500 MG PO BID for 10 Days, #20 TAB Prov:JOSE ANTONIO CERVANTES 04/21/24 Sennosides (Senna) 8.6 Mg Tablet, 8.6 MG PO DAILYDINNER, #30 TAB Prov:KATELYN MOSQUERA MD 03/29/24 Ciprofloxacin HCl (Cipro) 500 Mg Tablet, 1 TAB PO BID for 10 Days, #20 TAB 0 Refills Prov:KATELYN MOSQUERA MD 03/29/24 Nitrofurantoin Monohyd/M-Cryst (Macrobid 100 mg Capsule) 100 Mg Capsule, 100 MG PO BIDAC for uti for 7 Days, #14 CAP 0 Refills Prov:GIDEON ARIZMENDI MD 03/16/24 Polyethylene Glycol 3350 (Miralax) 17 Gram Powd.pack, 17 GM PO DAILY, #30 0 R efills Prov:NOEL ALCARAZ MD 01/24/24 Risperidone (Risperdal 1Mg Tab) 1 Mg Tablet, 1 MG PO DAILY19 for 30 Days, #30 TAB TAKE IT AT 9:00 PM Prov:MAURICE VASQUEZ MD 11/06/23 Risperidone (Risperdal 1Mg Tab) 1 Mg Tablet, 0.5 MG PO AM for 30 Days, #30 TAB 1 Refill TAKE IT IN THE MORNING Prov:MAURICE VASQUEZ MD 11/06/23 Cephalexin Monohydrate (Keflex) 500 Mg Cap, 500 MG PO Q12H, #14 CAP 0 Refills Prov:MERRILL JEAN 08/09/23 Cholecalciferol (Vitamin D3) (Vitamin D3) 25 Mcg (1000 Unit) Tablet, 25 MCG PO DAILY, #30 TAB 0 Refills Prov:MERRILL JEANMAYCOL 08/09/23 Lactulose (Lactulose) 20 Gram/30 Ml Solution, 20 GM PO BID, #180 ML Prov:MERRILL JEAN 08/09/23 Reported Medications [Vitamin D3] No Conflict Check 11/02/23 Cetirizine HCl (Cetirizine HCl) 10 Mg Tablet, 10 MG PO AD for ALLERGIES, TAB 08/08/23 Furosemide (Lasix 20Mg Tab) 20 Mg Tablet, 20 MG PO AM, TAB 07/27/22 Lisinopril (Lisinopril) 40 Mg Tablet, 40 MG PO DAILY, TAB 07/26/22 Amlodipine Besylate (Amlodipine Besylate) 5 Mg Tablet, 5 MG PO BID, TAB 07/26/22 Past Medical History Past Medical History: Diabetes-Type II, Hypertension Surgical History: Family History: CAD, DM, HTN Social History: Negative, Lives with family History: Not Applicable Review of System Dictation REVIEW OF SYSTEMS CONSTITUTIONAL: Denies fevers, chills, or night sweats. No unintentional weight loss reported. ENT: No hearing loss, otalgia, otorrhea, rhinitis, rhinorrhea, hoarseness, or sore throat. CARDIOVASCULAR: Denies any exertional angina, dyspnea on exertion, orthopnea, paroxysmal nocturnal dyspnea, palpitations claudication. PULMONARY: Denies any shortness of breath, cough, phlegm / sputum, hemoptysis, pleuritic chest pain. SLEEP: Denies morning headaches, daytime somnolence or napping. Denies difficulty falling asleep, staying asleep, waking from sleep. Denies knowledge of snoring. GASTROINTESTINAL: Complains of right lower quadrant dull pain and dysuria Denies any type of dysphagia to either liquids or solids. Denies nausea, vomiting,, diarrhea, constipation, blood in stools . NEUROLOGICAL: Denies headache, motor weakness, sensory deficit, vertigo / spinning sensation, gait abnormalities, or tremors. GENITOURINARY: Denies frequency, urgency, nocturia, hematuria or incontinence, low urinary stream, straining to void, urinary intermittency or hesitancy ENDOCRINOLOGY: Denies polyuria, polydipsia, polyphagia or heat / cold intolerance. HEMATOLOGY: Denies thrombophilia / previous clots, or coagulopathy / bleeding disorders. ONCOLOGIC: Denies personal history of malignancy. DERMATOLOGIC: Denies rashes or pruritus. PSYCHIATRIC: Denies any suicidal or homicidal ideation. Denies hallucinations. Initial Vital Sign VS Vital Signs Date Time Temp Pulse Resp B/P (MAP) Pulse Ox O2 Delivery O2 Flow Rate FiO2 08/13/24 16:17 98.4 55 20 170/68 100 08/13/24 18:00 Room Air* 0 21 Physical Exam Dictation PHYSICAL EXAM GENERAL APPEARANCE: Well nourished . Awake and alert. Oriented to time, place and person. No acute cardiopulmonary distress. HEENT: Head normocephalic , atraumatic. Sclera anicteric . Pupils are round and reactive. Extraocular movements intact . No conjunctival injection. No mariangel al congestion. No throat congestion .Oral mucosa moist. NECK: Supple. No JVD. No thyromegaly. No submental, submandibular, pre- /postauricular, occipital or supraclavicular lymphadenopathy. No carotid bruits. CHEST: Normal chest expansion. No Telemetry. LUNGS: Clear to auscultation bilaterally . No rales, rhonchi or any wheezing. Equal tactile fremitus. Resonant to percussion . CARDIOVASCULAR: Regular rate and rhythm. S1 and S2 normal. No rubs, murmurs or gallops. ABDOMEN: Soft, nontender, and nondistended. There is no rebound tenderness, voluntary guarding, or rigidity. No hepatosplenomegaly. Bowel sounds normal in all four quadrants . NEUROLOGICAL: Cranial nerves II-XII grossly intact. Motor is 5/5 in bilateral upper and lower extremities . No sensory deficits. EXTREMITIES: No edema, No cyanosis , No clubbing. Good capillary refill. SKIN: No skin breakdown. No rashes or lesions . PSYCHIATRY: Normal affect .No auditory or visual hallucinations. Normal speech. No dysarthria. Results (Laboratory/Radiology) Laboratory/Radiology Laboratory Tests Test 08/13/24 16:48 08/13/24 18:57 White Blood Count 4.9 K/uL (4.8-10.8) Red Blood Count 3.75 MIL/uL (4.00-5.50) L Hemoglobin 11.4 g/dL (12.0-16.0) L Hematocrit 33.4 % (36-48) L Mean Corpuscular Volume 89.1 fL (79-99) Mean Corpuscular Hemoglobin 30.4 pg (27.0-33.0) Mean Corpuscular Hemoglobin Concent 34.1 g/dL (32.0-36.0) Red Cell Distribution Width 12.8 % (11.0-15.5) Platelet Count 143 K/uL (130-400) Mean Platelet Volume 11.5 fL (7.5-10.5) H Nucleated Red Blood Cells 0.0 % (0.0-0.19) Sodium Level 133 mmol/L (136-145) L Potassium Level 4.7 mmol/L (3.5-5.1) Chloride Level 100 mmol/L (101-111) L Carbon Dioxide Level 27 mmol/L (21-32) Blood Urea Nitrogen 16 mg/dL (7-18) Creatinine 0.8 mg/dL (0.5-1.0) Glomerular Filtration Rate Calc 71 mL/min (>90) Random Glucose 87 mg/dL (70-105) Total Calcium 10.0 mg/dL (8.5-10.1) Total Bilirubin 0.5 mg/dL (0.2-1.0) Aspartate Amino Transf (AST/SGOT) 19 U/L (10-37) Alanine Aminotransferase (ALT/SGPT) 17 U/L (12-78) Alkaline Phosphatase 83 U/L (50-136) Total Protein 7.4 g/dL (6.0-8.3) Albumin 3.3 g/dL (3.5-5.0) L Urine Color COLORLESS (YELLOW) Urine Appearance CLEAR (CLEAR) Urine pH 7.0 (5.0-8.0) Urine Specific [place] 1.003 (1.001-1.031) Urine Protein NEGATIVE mg/dL (NEGATIVE) Urine Glucose (UA) NEGATIVE mg/dL (NEGATIVE) Urine Ketones NEGATIVE mg/dL (NEGATIVE) Urine Occult Blood NEGATIVE (NEGATIVE) Urine Nitrate NEGATIVE (NEGATIVE) Urine Bilirubin NEGATIVE mg/dL (NEGATIVE) Urine Urobilinogen 0.2 mg/dL (0.2-1.0) Urine Leukocyte Esterase NEGATIVE Alberto/uL Urine RBC 0-1 /HPF (0-1) Urine WBC 0-1 /HPF (0-1) Urine Squamous Epithelial Cells RARE /HPF (0-2) Urine Bacteria None /HPF (None Seen) Labs Reviewed?: Yes Ultrasound Comment: Evaluation of right lower abdomen is limited due tooverlying bowel gas. Both kidneys are seen. Right kidney measures 7.9 x 4 x 4.2 cm. Left kidney measures 9 x 4 x 4.5 cm. No hydronephrosis isseen of the both kidneys. The spleen is grossly unremarkable. Bladderis poorly distended. Bladder wall measures 4 mm. ED Course ED Course Orders Procedure Category Date Status Time Cbc Without LAB 08/13/24 Complete Differential 16:27 Comprehensive LAB 08/13/24 Complete Metabolic Panel 16:42 Bedside Troponin-I LAB.ER 08/13/24 In Process (Poc) 16:47 Us Abdominal Complete US 08/13/24 Resulted 16:58 Ketorolac PHA 08/13/24 Complete Tromethamine 15mg/Ml 18:30 0.9% Nacl 500ml PHA 08/13/24 Complete Iv.Soln (Ns 500ml 18:30 *Nursing CPOE 08/13/24 Transmitted Communication: 18:19 Urinalysis LAB 08/13/24 Complete W/Microscopic 18:59 Current Medications Medications (Trade) Dose Ordered Sig/[place] Route PRN Reason Start Time Stop Time Status Last Admin Dose Admin Ketorolac Tromethamine (toRADol) 15 mg ONCE ONCE IM 08/13/24 18:30 08/13/24 18:33 DC 08/13/24 19:16 Sodium Chloride 500 ml @ 0 mls/hr Q0M ONCE IV 08/13/24 18:30 08/13/24 18:33 DC 08/13/24 19:16 Vital Signs Date Time Temp Pulse Resp B/P (MAP) Pulse Ox O2 Delivery O2 Flow Rate FiO2 08/13/24 20:00 98.2 62 18 160/62 98 Room Air* 0 21 08/13/24 18:00 98.2 64 16 155/54 98 Room Air* 0 21 08/13/24 16:17 98.4 55 20 170/68 100 4:45 p.m.: Patient does not complain of acute abdominal pain right now. Requested CBC, CMP, troponin, urinalysis. 6:00 P.M.-CBC is unremarkable CMP shows mild hyponatremia. She complains of mild right lower quadrant abdominal pain,2/10 intensity. Patient appears irritated and is talking a lot-per the bystander she is at her baseline. Request IV fluid NS 500 mL and IV Toradol 15 mg stat. pending urinalysis 8:00 p.m.: Patient feels better. Status post IV fluid rehydration. Her ultrasound abdomen is unremarkable. Urinalysis negative for infection. Patient will be discharged home. Medical Decision Making MDM Differential diagnosis : Acute UTI, acute cholelithiasis, constipation Rationale: Tests considered and ordered secondary to shared decision making include: CBC, CMP, urine microscopy I will re-evaluate the patient after treatment and diagnostic exams have returned to determine whether they require further testing, can be safely discharged home, or need admission for further treatment and evaluation. Given the social determinants of health affecting care, including literacy, access to medical care, prescription drug management, and [id number] drugs, I will ensure that treatment plans are tailored accordingly. There are no social concerns with this patient. Risk of complication and/or morbidity or mortality of patient management: None Need for hospitalization: Patient does not meet criteria for hospitalization. Need for emergency major/minor surgery: No Prescription drug management Prescriptions will include symptomatic care Medications-Per medication reconciliation Previous outside records reviewed: Old ER visits. Patient's prior external medical records from other ER visits were reviewed by me as indicated. Prior testing and results from previous visits were reviewed. Prior tests were taken into account with medical decision making and resource ut ilization, independent historian/historians were used to obtain complete medical history. I independently interpreted the test that were performed, results were reviewed by me and considered findings on radiology. Medical management and examination interpretation discussions was done by me with other qualified healthcare professionals as indicated for the patient's care. Revaluation: Patient is symptoms improved after IV fluid and Toradol. Labs remarkable for sodium of 133. Urinalysis negative for infection. Disposition : Home DX & DISP Disposition: Discharge Departure Impression: Primary Impression: Cystitis Additional Impressions: Hyponatremia, Dementia Condition: Stable Scripts Phenazopyridine HCl (Pyridium) 100 Mg Tab 100 MG PO DAILY for 3 Days, #3 TAB 0 Refills Prov: NABEEL DAY MD 08/13/24 Additional Instructions: FOLLOW-UP WITH PRIMARY CARE PROVIDER IN 1 TO 2 DAYS. TAKE MEDICATIONS DIRECTED HERE IN THE EMERGENCY ROOM. OKAY TO CONTINUE HOME MEDICATIONS UNLESS OTHERWISE DISCUSSED DURING YOUR VISIT IN THE EMERGENCY ROOM TODAY. INCREASE ORAL HYDRATION. IF A WOUND CULTURE OR URINE CULTURE WAS ORDERED HERE IN THE EMERGENCY ROOM DEPARTMENT, PLEASE FOLLOW-UP WITH PRIMARY CARE PROVIDER AND ADVISE THEM TO GET REPEAT PORTS FROM OUR FACILITY. IF YOU HAD ANY EDWIN WRAP / SPLINTS THAT WERE APPLIED HERE, PLEASE DO NOT REMOVE THEM UNTIL YOU SEE YOUR PRIMARY CARE OR SPECIALTY. RETURN TO YOUR NEAREST EMERGENCY ROOM IF SYMPTOMS WORSEN OR IF THERE IS NO IMPROVEMENT. CALL 911 IF YOU NEED IMMEDIATE ASSISTANCE. Referrals: GRACY FLORIAN PA-C (PCP) I have reviewed, & agreed with my scribe's, documentation. (Entered by Sharyn Bennett, acting as a scribe for Dr. Paris) I have reviewed the case, and I agree with, Diagnosis and Plan (I was present and participated in the care of this patient alongside the resident physician. I have reviewed and personally made and improve the management plan that is documented in the note by myself or the resident physician. I acknowledge full responsibility for the patient's management plan.) I personally scribed for ADAMA PARIS MD ([email or web address]) on 08/13/24 at 18:29. Electronically submitted by Sharyn Bennett ([email or web address]). NABEEL DAY MD Aug 13, 2024 16:49 ADAMA PARIS MD Aug 13, 2024 18:29
[2024-08-13 16:55] LABS: HEMATOCRIT 33.4 % (36-48); MEAN CORPUSCULAR HEMOGLOBIN 30.4 pg (27.0-33.0); MEAN CORPUSCULAR HGB CONC 34.1 g/dL (32.0-36.0); MEAN CORPUSCULAR VOLUME 89.1 fL (79-99); RED BLOOD CELL COUNT(AUTO) 3.75 MIL/uL (4.00-5.50); RED CELL DISTRIBUTION WIDTH 12.8 % (11.0-15.5); WHITE BLOOD COUNT (AUTO) 4.9 K/uL (4.8-10.8)
--- NOTE | 2024-08-13 17:02 | NUR ---
PT JUST ASSIGNED TO MY ED BED 10 BUT NOT IN THERE YET
--- NOTE | 2024-08-13 17:05 | NUR ---
PT JUST NOW BEING PLACED IN MY ED BED 10
[2024-08-13 17:10] LABS: CREATININE 0.8 mg/dL (0.5-1.0); POTASSIUM 4.7 mmol/L (3.5-5.1)
[2024-08-13 17:15] LABS: ALBUMIN 3.3 g/dL (3.5-5.0); BILIRUBIN,TOTAL 0.5 mg/dL (0.2-1.0); TOTAL PROTEIN, SERUM 7.4 g/dL (6.0-8.3)
--- NOTE | 2024-08-13 18:00 | NUR ---
SONO HAS BEEN COMPLETED
--- NOTE | 2024-08-13 18:04 | HMCIMG ---
US ABDOMINAL COMPLETE HISTORY: Right lower abdominal pain COMPARISON: CT from 05/11/2024 TECHNIQUE: Multiple transverse and longitudinal ultrasound images of the abdomen were obtained. FINDINGS: Liver measured 10.3 cm. The visualized portion of the pancreas is within normal limits. Liver is echogenic consistent with liver parenchymal disease. Gallbladder has been removed. Common duct measures 6 mm. Evaluation of right lower abdomen is limited due to overlying bowel gas. Both kidneys are seen. Right kidney measures 7.9 x 4 x 4.2 cm. Left kidney measures 9 x 4 x 4.5 cm. No hydronephrosis is seen of the both kidneys. The spleen is grossly unremarkable. Bladder is poorly distended. Bladder wall measures 4 mm. IMPRESSION: 1. Post cholecystectomy. No ductal dilatation is seen. 2. No hydronephrosis is seen.
--- NOTE | 2024-08-13 19:04 | NUR ---
REPORT ENDORSED TO MARGA[facility] RUVALCABA
[2024-08-13 19:06] LABS: APPEARANCE,URINE CLEAR (CLEAR); BILIRUBIN,URINE NEGATIVE (NEGATIVE); COLOR,URINE COLORLESS (YELLOW); GLUCOSE, URINE (UA) NEGATIVE (NEGATIVE); KETONES,URINE NEGATIVE (NEGATIVE); LEUKOCYTE ESTERASE ,URINE NEGATIVE Leu/uL (NEGATIVE); NITRATE,URINE NEGATIVE (NEGATIVE); OCCULT BLOOD,URINE NEGATIVE (NEGATIVE); PROTEIN,URINE NEGATIVE (NEGATIVE); UROBILINOGEN,URINE 0.2 mg/dL (0.2-1.0)
[2024-08-13] MEDS: ketOROlac 15MG/ML VIAL (15MG/ML) IM ONE (19:16)
[2024-08-13] MEDS: 0.9% NACL 500ML IV.SOLN 500 ML IV ONE (19:16)
[2024-08-13 19:23] LABS: RBC,URINE 0-1 /HPF (0-1); SQUAMOUS EPITHELIAL CELL,UR RARE /HPF (0-2); WBC,URINE 0-1 /HPF (0-1)
[2024-08-13 20:00] VITALS: BP 160/62; PULSE 62; RESP 18; TEMP 98.2; O2SAT 98
[2024-08-13] MEDS ORDERED: PHEN-846 PO (20:08)
== END 2024-08-13 20:22 | disposition home or self-care (01) ==
LOC: EDH 16:16
DX: N30.90 Cystitis, unspecified without hematuria (principal); E87.1 Hypo-osmolality and hyponatremia; F03.90 Unspecified dementia, unspecified severity, without behavioral disturbance, psychotic disturbance, mood disturbance, and anxiety; E11.9 Type 2 diabetes mellitus without complications; I10 Essential (primary) hypertension; Z79.899 Other long term (current) drug therapy; Z90.49 Acquired absence of other specified parts of digestive tract
CPT/HCPCS: 99285; 76700; 80053; 85027; 81001; 36415; 96372; J7040; J1885

== ENCOUNTER 2024-09-11 18:35 | Emergency (ER) | payer SELFPAY ==
[~2024-09-11] VITALS: Ht 160 cm; Wt 64.4 kg
[~2024-09-11 18:35] MED LIST changes: +PHEN-846 PO
[2024-09-11 18:36] VITALS: TEMP 98.4
--- NOTE | 2024-09-11 21:00 | ERN ---
General Chief Complaint: Lower Extremity Pain/Injury Stated Complaint: LEFT LEG PAIN Time Seen by MD: 20:24 History of Present Illness Initial Comments Mrs Arizmendi is a 88-year-old female significant past medical history of essential hypertension, heart failure, psychosis, debility who presents today with a chief complaint of lower extremity swelling. Patient was brought in by her daughter states the patient has been increased swelling of the lower extremities. Patient appears to have bilateral swelling. She denies any other symptomatology other than a sensation of heavy legs. Allergies: Coded Allergies: No Known Drug Allergies (Unverified Allergy, Unknown, 07/25/22) Home Meds Active Scripts Phenazopyridine HCl (Pyridium) 100 Mg Tab, 100 MG PO DAILY for 3 Days, #3 TAB 0 Refills Prov:NABEEL DAY MD 08/13/24 Cephalexin Monohydrate (Keflex) 500 Mg Cap, 500 MG PO BID for 5 Days, #10 CAP Prov:ELVA PRITCHETT MD 05/11/24 Lactulose (Lactulose) 20 Gram/30 Ml Solution, 20 GM PO BID, #180 ML Prov:JOSE ANTONIO CERVANTES 04/21/24 Ciprofloxacin HCl (Ciprofloxacin HCl) 500 Mg Tablet, 500 MG PO BID for 10 Days, #20 TAB Prov:JOSE ANTONIO CERVANTES 04/21/24 Sennosides (Senna) 8.6 Mg Tablet, 8.6 MG PO DAILYDINNER, #30 TAB Prov:KATELYN MOSQUERA MD 03/29/24 Ciprofloxacin HCl (Cipro) 500 Mg Tablet, 1 TAB PO BID for 10 Days, #20 TAB 0 Refills Prov:KATELYN MOSQUERA MD 03/29/24 Nitrofurantoin Monohyd/M-Cryst (Macrobid 100 mg Capsule) 100 Mg Capsule, 100 MG PO BIDAC for uti for 7 Days, #14 CAP 0 Refills Prov:GIDEON ARIZMENDI MD 03/16/24 Polyethylene Glycol 3350 (Miralax) 17 Gram Powd.pack, 17 GM PO DAILY, #30 0 Refills Prov:NOEL ALCARAZ MD 01/24/24 Risperidone (Risperdal 1Mg Tab) 1 Mg Tablet, 1 MG PO DAILY19 for 30 Days, #30 TAB TAKE IT AT 9:00 PM Prov:MAURICE VASQUEZ MD 11/06/23 Risperidone (Risperdal 1Mg Tab) 1 Mg Tablet, 0.5 MG PO AM for 30 Days, #30 TAB 1 Refill TAKE IT IN THE MORNING Prov:MAURICE VASQUEZ MD 11/06/23 Cephalexin Monohydrate (Keflex) 500 Mg Cap, 500 MG PO Q12H, #14 CAP 0 Refills Prov:MERRILL JEAN [facility] 08/09/23 Cholecalciferol (Vitamin D3) (Vitamin D3) 25 Mcg (1000 Unit) Tablet, 25 MCG PO DAILY, #30 TAB 0 Refills Prov:MERRILL JEANMAYCOL 08/09/23 Lactulose (Lactulose) 20 Gram/30 Ml Solution, 20 GM PO BID, #180 ML Prov:MERRILL JEAN 08/09/23 Reported Medications [Vitamin D3] No Conflict Check 11/02/23 Cetirizine HCl (Cetirizine HCl) 10 Mg Tablet, 10 MG PO AD for ALLERGIES, TAB 08/08/23 Furosemide (Lasix 20Mg Tab) 20 Mg Tablet, 20 MG PO AM, TAB 07/27/22 Lisinopril (Lisinopril) 40 Mg Tablet, 40 MG PO DAILY, TAB 07/26/22 Amlodipine Besylate (Amlodipine Besylate) 5 Mg Tablet, 5 MG PO BID, TAB 07/26/22 Past Medical History Past Medical History: Diabetes-Type II, Hypertension Past Surgical History: Family History Family History: CAD, DM, HTN Social History Social History: Negative, Lives with family Female( History) History: Not Applicable ROS Dictation Constitutional: Negative for fever,chills, and weight loss Eyes: Negative for injury, pain,redness, and discharge ENT: Negative for injury,pain or swelling Cardiovascular: Negative for chest pain, palpitations, and edema Respiratory: Negative for shortness of breath, cough, and wheezing, Abdomen/GI: Negative for abdominal pain, nausea, vomiting, diarrhea, and constipation Back: Negative for injury and pain : Negative for injury, bleeding and discharge MS/Extremity: Positive for bilateral swelling of the lower extremities Skin: Negative for rash, and discoloration Neuro: Negative for headache, weakness, numbness, tingling, and seizure Psych: Negative for suicide ideation, homicidal ideation, and hallucinations Physical Exam Physical Exam Dictation General: awake, alert, NAD Head/Face: Normocephalic, atraumatic Eyes: PERRL, EOMI, ENT: oral cavity clear, TMs clear, Neck: Trachea midline, supple Cardiovascular: RRR, normal S1/S2, No MRGs, no JVD Respiratory: CTAB, no respiratory distress, No rales or wheezes Abdomen: Soft, non-tender, non-distended, normal bowel sounds, no guarding or rebound. Skin: Warm, dry, normal turgor, no rash MS/Extremity: Pulses equal, bilateral lower extremity swelling Neuro: COAx4, GCS 15, strength 5/5 Results Laboratory and Microbiology Lab and Micro Result Laboratory Tests Test 09/11/24 21:06 White Blood Count 5.9 K/uL (4.8-10.8) Red Blood Count 3.85 MIL/uL (4.00-5.50) L Hemoglobin 11.6 g/dL (12.0-16.0) L Hematocrit 35.0 % (36-48) L Mean Corpuscular Volume 90.9 fL (79-99) Mean Corpuscular Hemoglobin 30.1 pg (27.0-33.0) Mean Corpuscular Hemoglobin Concent 33.1 g/dL (32.0-36.0) Red Cell Distribution Width 12.5 % (11.0-15.5) Platelet Count 159 K/uL (130-400) Mean Platelet Volume 12.4 fL (7.5-10.5) H Immature Granulocyte % (Auto) 0.2 % (0-1) Neutrophils (%) (Auto) 63.9 % (40.0-77.0) Lymphocytes (%) (Auto) 23.9 % (21.0-51.0) Monocytes (%) (Auto) 9.8 % (3.0-13.0) Eosinophils (%) (Auto) 1.5 % (0.0-8.0) Basophils (%) (Auto) 0.7 % (0.0-5.0) Neutrophils # (Auto) 3.8 K/uL (1.8-7.7) Lymphocytes # (Auto) 1.4 K/uL (1.0-4.8) Monocytes # (Auto) 0.6 K/uL (0.1-1.0) Eosinophils # (Auto) 0.09 K/uL (0.00-0.70) Basophils # (Auto) 0.04 K/uL (0.00-0.20) Absolute Immature Granulocyte (auto 0.01 K/uL (0-1) Nucleated Red Blood Cells 0.0 % (0.0-0.19) Troponin I High Sensitivity 14 ng/L (4-50) B-Type Natriuretic Peptide 222 pg/mL (0-100) H MDM Patient was stable from a hemodynamic and respiratory standpoint. Patient appears to have chronic venous stasis. Advised patient to consider compression stockings as well as lifting above the level of the heart. Patient will be discharged for follow up with primary care physician MDM: Differential diagnosis: Lower extremity swelling, chronic venous stasis Rationale: Tests considered and ordered secondary to shared decision making include: Previous outside records reviewed: Old ER visits. Risk of complication and/or morbidity or mortality of patient management: None Medications-Per medication reconciliation Need for hospitalization: Patient does not meet criteria for hospitalization. Need for emergency major/minor surgery: No There are no social concerns with this patient. Prescription drug management Prescriptions will include symptomatic care Patient's prior external medical records from other ER visits were reviewed by me as indicated. Prior testing and results from previous visits were reviewed. Prior tests were taken into account with medical decision making and resource utilization, independent historian/historians were used to obtain complete medical history. I independently interpreted the test that were performed, results were reviewed by me and considered findings on radiology if ordered. Medical management and examination interpretation discussions were had by me with other qualified healthcare professionals as indicated for the patient's care. ED Course Orders Procedure Category Date Status Time Cbc With Differential LAB 09/11/24 Complete 20:46 B-Type Natriuretic LAB 09/11/24 Complete Peptide 20:46 Chest 1vw RAD 09/11/24 Taken 20:46 Troponin I High LAB 09/11/24 Complete Sensitivity 20:46 Bedside Troponin-I LAB.ER 09/11/24 In Process (Poc) 20:46 Us Venous Doppler US 09/11/24 Resulted Bilateral 20:57 Compression CPOE 09/11/24 Transmitted Stockings(Whc) 22:40 Vital Signs Date Time Temp Pulse Resp B/P (MAP) Pulse Ox O2 Delivery O2 Flow Rate FiO2 09/11/24 22:30 67 16 108/93 100 Room Air* 0 21 09/11/24 18:36 98.4 66 16 123/53 100 Room Air* 0 21 09/11/24 18:36 98.4 66 16 150/70 100 Room Air 0 DX & DISP Disposition: Discharge Departure Impression: Primary Impression: Chronic venous stasis Condition: Stable Additional Instructions: Please follow up with your primary care physician for continuance of care. Please wear compression stockings anywhere between 8-12 hours a day. Please take your compression stockings off when your sleeping but please lift your legs above the level of your heart. Referrals: GRACY FLORIAN PA-C (PCP) GIDEON ARIZMENDI MD Sep 11, 2024 21:00
[2024-09-11 21:17] LABS: BASOPHILS # (AUTO) 0.04 K/uL (0.00-0.20); BASOPHILS % (AUTO) 0.7 % (0.0-5.0); EOSINOPHILS # (AUTO) 0.09 K/uL (0.00-0.70); EOSINOPHILS % (AUTO) 1.5 % (0.0-8.0); IMMATURE GRANULOCYTE ABSOLUTE 0.01 K/uL (0-1); LYMPHOCYTES # (AUTO) 1.4 K/uL (1.0-4.8); LYMPHOCYTES % (AUTO) 23.9 % (21.0-51.0); MEAN CORPUSCULAR HEMOGLOBIN 30.1 pg (27.0-33.0); MEAN CORPUSCULAR HGB CONC 33.1 g/dL (32.0-36.0); MEAN CORPUSCULAR VOLUME 90.9 fL (79-99); MONOCYTES # (AUTO) 0.6 K/uL (0.1-1.0); MONOCYTES % (AUTO) 9.8 % (3.0-13.0); NEUTROPHILS # (AUTO) 3.8 K/uL (1.8-7.7); NEUTROPHILS % (AUTO) 63.9 % (40.0-77.0); PLATELET COUNT (AUTO) 159 K/uL (130-400); RED BLOOD CELL COUNT(AUTO) 3.85 MIL/uL (4.00-5.50); RED CELL DISTRIBUTION WIDTH 12.5 % (11.0-15.5); WHITE BLOOD COUNT (AUTO) 5.9 K/uL (4.8-10.8)
[2024-09-11 21:38] LABS: B-TYPE NATRIURETIC PEPTIDE 222 pg/mL (0-100)
--- NOTE | 2024-09-11 22:00 | NUR ---
CARE ASSUMED AT THIS TIME. PT PLACED IN ROOM 3 ED
--- NOTE | 2024-09-11 22:18 | HMCIMG ---
US VENOUS DOPPLER BILATERAL HISTORY: Lower extremity swelling COMPARISON: None TECHNIQUE: Bilateral lower extremity venous Doppler ultrasound study was performed. FINDINGS: The common femoral, femoral, popliteal, and posterior tibial veins are visualized. Normal flow with augmentation and compressibilities are demonstrated. The greater saphenous veins are also seen and grossly patent. IMPRESSION: 1. No evidence of deep venous thrombosis is seen.
[2024-09-11 22:30] VITALS: BP 108/93; PULSE 67; RESP 16; O2SAT 100
--- NOTE | 2024-09-11 22:51 | HMCIMG ---
CHEST 1VW HISTORY: Shortness of breath COMPARISON: 05/11/2024 FINDINGS: A frontal projection of the chest was obtained. Mild bilateral pulmonary infiltrates are seen may be related to mild pulmonary vascular congestion with possible superimposed pneumonitis. The heart is borderline enlarged. Aortic calcifications are seen. Degenerative changes are seen. IMPRESSION: 1. Mild bilateral pulmonary infiltrates are seen may be related to mild pulmonary vascular congestion with possible superimposed pneumonitis.
--- NOTE | 2024-09-11 23:30 | NUR ---
STOCKINGS APPLIED TO BILATERAL LOWER EXTREMITIES PER ED MD ORDERS PRIOR TO DISCHARGE
== END 2024-09-11 23:28 | disposition home or self-care (01) ==
LOC: EDH 18:35
DX: I87.8 Other specified disorders of veins (principal); E11.9 Type 2 diabetes mellitus without complications; I11.0 Hypertensive heart disease with heart failure; I50.9 Heart failure, unspecified; Z79.899 Other long term (current) drug therapy
CPT/HCPCS: 36415; 71045; 83880; 84484; 85025; 93970; 99284

== ENCOUNTER 2024-09-20 22:20 | Emergency (ER) | payer SELFPAY ==
[~2024-09-20] VITALS: Ht 149.9 cm; Wt 60.8 kg
[2024-09-20 22:21] VITALS: TEMP 97.5
--- NOTE | 2024-09-20 22:42 | ERN ---
General Chief Complaint: Abdominal Pain Stated Complaint: ABD PAIN Time Seen by MD: 22:26 History of Present Illness Initial Comments Mrs Arizmendi is a very pleasant 88-year-old female significant past medical history debility, chronic constipation, psychosis, and lower extremity venous stasis who presents today with a chief complaint of abdominal pain. Patient reports abdominal pain in the right lower quadrant. Pain radiates to the groin area. Patient states that she has been having some difficulty urinating. Patient denies any fever. Allergies: Coded Allergies: No Known Drug Allergies (Unverified Allergy, Unknown, 07/25/22) Home Meds Active Scripts Phenazopyridine HCl (Pyridium) 100 Mg Tab, 100 MG PO DAILY for 3 Days, #3 TAB 0 Refills Prov:NABEEL DAY MD 08/13/24 Cephalexin Monohydrate (Keflex) 500 Mg Cap, 500 MG PO BID for 5 Days, #10 CAP Prov:ELVA PRITCHETT MD 05/11/24 Lactulose (Lactulose) 20 Gram/30 Ml Solution, 20 GM PO BID, #180 ML Prov:JOSE ANTONIO CERVANTES 04/21/24 Ciprofloxacin HCl (Ciprofloxacin HCl) 500 Mg Tablet, 500 MG PO BID for 10 Days, #20 TAB Prov:JOSE ANTONIO CERVANTES 04/21/24 Sennosides (Senna) 8.6 Mg Tablet, 8.6 MG PO DAILYDINNER, #30 TAB Prov:KATELYN MOSQUERA MD 03/29/24 Ciprofloxacin HCl (Cipro) 500 Mg Tablet, 1 TAB PO BID for 10 Days, #20 TAB 0 Refills Prov:KATELYN MOSQUERA MD 03/29/24 Nitrofurantoin Monohyd/M-Cryst (Macrobid 100 mg Capsule) 100 Mg Capsule, 100 MG PO BIDAC for uti for 7 Days, #14 CAP 0 Refills Prov:GIDEON ARIZMENDI MD 03/16/24 Polyethylene Glycol 3350 (Miralax) 17 Gram Powd.pack, 17 GM PO DAILY, #30 0 Refills Prov:NOEL ALCARAZ MD 01/24/24 Risperidone (Risperdal 1Mg Tab) 1 Mg Tablet, 1 MG PO DAILY19 for 30 Days, #30 TAB TAKE IT AT 9:00 PM Prov:MAURICE VASQUEZ MD 11/06/23 Risperidone (Risperdal 1Mg Tab) 1 Mg Tablet, 0.5 MG PO AM for 30 Days, #30 TAB 1 Refill TAKE IT IN THE MORNING Prov:MAURICE VASQUEZ MD 11/06/23 Cephalexin Monohydrate (Keflex) 500 Mg Cap, 500 MG PO Q12H, #14 CAP 0 Ref[facility] 08/09/23 Cholecalciferol (Vitamin D3) (Vitamin D3) 25 Mcg (1000 Unit) Tablet, 25 MCG PO DAILY, #30 TAB 0 Refills Prov:MERRILL JEAN [facility] 08/09/23 Lactulose (Lactulose) 20 Gram/30 Ml Solution, 20 GM PO BID, #180 ML Prov:MERRILL JEAN 08/09/23 Reported Medications [Vitamin D3] No Conflict Check 11/02/23 Cetirizine HCl (Cetirizine HCl) 10 Mg Tablet, 10 MG PO AD for ALLERGIES, TAB 08/08/23 Furosemide (Lasix 20Mg Tab) 20 Mg Tablet, 20 MG PO AM, TAB 07/27/22 Lisinopril (Lisinopril) 40 Mg Tablet, 40 MG PO DAILY, TAB 07/26/22 Amlodipine Besylate (Amlodipine Besylate) 5 Mg Tablet, 5 MG PO BID, TAB 07/26/22 Past Medical History Past Medical History: Diabetes-Type II, Hypertension, UTI, Other Medical History Other: POOR HISTORIAN Past Surgical History: Other, Surgical History Other: POOR HISTORIANS Family History Family History: CAD, DM, HTN Social History Social History: Negative, Lives with family Female( History) History: Not Applicable ROS Dictation Constitutional: Negative for fever,chills, and weight loss Eyes: Negative for injury, pain,redness, and discharge ENT: Negative for injury,pain or swelling Cardiovascular: Negative for chest pain, palpitations, and edema Respiratory: Negative for shortness of breath, cough, and wheezing, Abdomen/GI: Positive for abdominal pain Back: Negative for injury and pain : Negative for injury, bleeding and discharge MS/Extremity: Negative for injury and deformity Skin: Negative for rash, and discoloration Neuro: Negative for headache, weakness, numbness, tingling, and seizure Psych: Negative for suicide ideation, homicidal ideation, and hallucinations Physical Exam Physical Exam Dictation General: Elderly female Head/Face: Normocephalic, atraumatic Eyes: PERRL ENT: oral cavity clear, Neck: Trachea midline, supple Cardiovascular: RRR, normal S1/S2, Respiratory: CTAB, no respiratory distress, No rales or wheezes Abdomen: Pain with palpation in the right lower quadrant Skin: Warm, dry, normal turgor, no rash MS/Extremity: Pulses equal, no cyanosis Neuro: COAx4, GCS 15, strength 5/5, CN 2-12 intact Psych: Normal behavior, mood, and affect normal Results Laboratory and Microbiology Lab and Micro Result Laboratory Tests Test 09/20/24 22:34 White Blood Count 5.8 K/uL (4.8-10.8) Red Blood Count 3.90 MIL/uL (4.00-5.50) L Hemoglobin 11.9 g/dL (12.0-16.0) L Hematocrit 35.4 % (36-48) L Mean Corpuscular Volume 90.8 fL (79-99) Mean Corpuscular Hemoglobin 30.5 pg (27.0-33.0) Mean Corpuscular Hemoglobin Concent 33.6 g/dL (32.0-36.0) Red Cell Distribution Width 12.6 % (11.0-15.5) Platelet Count 163 K/uL (130-400) Mean Platelet Volume 12.2 fL (7.5-10.5) H Immature Granulocyte % (Auto) 0.3 % (0-1) Neutrophils (%) (Auto) 59.3 % (40.0-77.0) Lymphocytes (%) (Auto) 28.7 % (21.0-51.0) Monocytes (%) (Auto) 9.5 % (3.0-13.0) Eosinophils (%) (Auto) 1.7 % (0.0-8.0) Basophils (%) (Auto) 0.5 % (0.0-5.0) Neutrophils # (Auto) 3.4 K/uL (1.8-7.7) Lymphocytes # (Auto) 1.7 K/uL (1.0-4.8) Monocytes # (Auto) 0.6 K/uL (0.1-1.0) Eosinophils # (Auto) 0.10 K/uL (0.00-0.70) Basophils # (Auto) 0.03 K/uL (0.00-0.20) Absolute Immature Granulocyte (auto 0.02 K/uL (0-1) Nucleated Red Blood Cells 0.0 % (0.0-0.19) Urine Color LIGHT-YELLOW (YELLOW) Urine Appearance CLOUDY (CLEAR) H Urine pH 6.5 (5.0-8.0) Urine Specific [place] 1.017 (1.001-1.031) Urine Protein NEGATIVE mg/dL (NEGATIVE) Urine Glucose (UA) NEGATIVE mg/dL (NEGATIVE) Urine Ketones NEGATIVE mg/dL (NEGATIVE) Urine Occult Blood NEGATIVE (NEGATIVE) Urine Nitrate 1+ (NEGATIVE) H Urine Bilirubin NEGATIVE mg/dL (NEGATIVE) Urine Urobilinogen 0.2 mg/dL (0.2-1.0) Urine Leukocyte Esterase 250 Alberto/uL (NEGATIVE) H Urine RBC 2-5 /HPF (0-1) H Urine WBC 26-50 /HPF (0-1) H Urine Squamous Epithelial Cells RARE /HPF (0-2) Urine Bacteria MOD /HPF (None Seen) Sodium Level 134 mmol/L (136-145) L Potassium Level 4.4 mmol/L (3.5-5.1) Chloride Level 101 mmol/L (101-111) Carbon Dioxide Level 27 mmol/L (21-32) Blood Urea Nitrogen 25 mg/dL (7-18) H Creatinine 0.8 mg/dL (0.5-1.0) Glomerular Filtration Rate Calc 71 mL/min (>90) Random Glucose 99 mg/dL (70-105) Total Calcium 10.0 mg/dL (8.5-10.1) Total Bilirubin 0.4 mg/dL (0.2-1.0) Aspartate Amino Transf (AST/SGOT) 17 U/L (10-37) Alanine Aminotransferase (ALT/SGPT) 18 U/L (12-78) Alkaline Phosphatase 93 U/L (50-136) Total Protein 7.2 g/dL (6.0-8.3) Albumin 3.4 g/dL (3.5-5.0) L Lipase 35 U/L (16-77) MDM Patient appears to have a UTI. Patient will be given Levaquin and asked to follow up as an outpatient. MDM: Differential diagnosis: UTI Rationale: Tests considered and ordered secondary to shared decision making include: Previous outside records reviewed: Old ER visits. Risk of complication and/or morbidity or mortality of patient management: None Medications-Per medication reconciliation Need for hospitalization: Patient does not meet criteria for hospitalization. Need for emergency major/minor surgery: No There are no social concerns with this patient. Prescription drug management Prescriptions will include symptomatic care Patient's prior external medical records from other ER visits were reviewed by me as indicated. Prior testing and results from previous visits were reviewed. Prior tests were taken into account with medical decision making and resource utilization, independent historian/historians were used to obtain complete medical history. I independently interpreted the test that were performed, results were reviewed by me and considered findings on radiology if ordered. Medical management and examination interpretation discussions were had by me with other qualified healthcare professionals as indicated for the patient's care. ED Course Orders Procedure Category Date Status Time Cbc With Differential LAB 09/20/24 Complete 22:27 Comprehensive LAB 09/20/24 Complete Metabolic Panel 22:27 Urinalysis Profile LAB 09/20/24 Complete 22:27 Lactated Ringers PHA 09/20/24 Complete 1000ml (Lactated 22:30 Ondansetron 4mg Inj PHA 09/20/24 Complete (Zofran 4mg Inj) 22:30 Lipase LAB 09/20/24 Complete 22:27 Culture Urine SONNY 09/20/24 In Process 22:51 Ceftriaxone 2gm Vial PHA 09/21/24 Logged (Rocephin 2gm Inj) 00:00 Current Medications Medications (Trade) Dose Ordered Sig/Hreminia Route PRN Reason Start Time Stop Time Status Last Admin Dose Admin Ceftriaxone Sodium (Rocephin 2gm Inj) 1 gm ONCE ONCE IVPB 09/21/24 00:00 09/21/24 00:01 UNV Lactated Ringer's 1,000 ml @ 0 mls/hr ONCE ONCE IV 09/20/24 22:30 09/20/24 22:31 DC 09/20/24 23:14 Ondansetron HCl (zoFRAN 4MG INJ) 4 mg ONCE ONCE IVP 09/20/24 22:30 09/20/24 22:31 DC 09/20/24 23:14 Vital Signs Date Time Temp Pulse Resp B/P (MAP) Pulse Ox O2 Delivery O2 Flow Rate FiO2 09/20/24 22:21 97.5 62 20 171/57 100 Room Air DX & DISP Disposition: Discharge Departure Impression: Primary Impression: UTI (urinary tract infection) Condition: Stable Scripts Levofloxacin (Levofloxacin) 500 Mg Tablet 500 MG PO DAILY for 10 Days, #10 TAB Prov: GIDEON ARIZMENDI MD 09/20/24 Additional Instructions: Please follow up with your primary care physician in the next 1-7 days for continuance of care. Please take antibiotics as prescribed. If you continue to have issues please come to the emergency department. Referrals: GRACY FLORIAN PA-C (PCP) GIDEON ARIZMENDI MD Sep 20, 2024 22:42
[2024-09-20 22:48] LABS: BASOPHILS # (AUTO) 0.03 K/uL (0.00-0.20); BASOPHILS % (AUTO) 0.5 % (0.0-5.0); EOSINOPHILS % (AUTO) 1.7 % (0.0-8.0); HEMATOCRIT 35.4 % (36-48); IMMATURE GRANULOCYTE ABSOLUTE 0.02 K/uL (0-1); LYMPHOCYTES # (AUTO) 1.7 K/uL (1.0-4.8); LYMPHOCYTES % (AUTO) 28.7 % (21.0-51.0); MEAN CORPUSCULAR HEMOGLOBIN 30.5 pg (27.0-33.0); MEAN CORPUSCULAR HGB CONC 33.6 g/dL (32.0-36.0); MEAN CORPUSCULAR VOLUME 90.8 fL (79-99); MONOCYTES # (AUTO) 0.6 K/uL (0.1-1.0); MONOCYTES % (AUTO) 9.5 % (3.0-13.0); NEUTROPHILS # (AUTO) 3.4 K/uL (1.8-7.7); NEUTROPHILS % (AUTO) 59.3 % (40.0-77.0); PLATELET COUNT (AUTO) 163 K/uL (130-400); RED CELL DISTRIBUTION WIDTH 12.6 % (11.0-15.5); WHITE BLOOD COUNT (AUTO) 5.8 K/uL (4.8-10.8)
[2024-09-20 22:49] LABS: APPEARANCE,URINE CLOUDY (CLEAR); BILIRUBIN,URINE NEGATIVE (NEGATIVE); COLOR,URINE LIGHT-YELLOW (YELLOW); GLUCOSE, URINE (UA) NEGATIVE (NEGATIVE); KETONES,URINE NEGATIVE (NEGATIVE); LEUKOCYTE ESTERASE ,URINE 250 Leu/uL (NEGATIVE); NITRATE,URINE 1+ (NEGATIVE); OCCULT BLOOD,URINE NEGATIVE (NEGATIVE); PH,URINE 6.5 (5.0-8.0); PROTEIN,URINE NEGATIVE (NEGATIVE); UROBILINOGEN,URINE 0.2 mg/dL (0.2-1.0)
[2024-09-20 22:51] LABS: ADD UA MICROSCOPIC YES
[2024-09-20 22:53] LABS: BACTERIA,URINE MOD /HPF (None Seen); MUCUS,URINE RARE LPF (None Seen); SQUAMOUS EPITHELIAL CELL,UR RARE /HPF (0-2); WBC,URINE 26-50 /HPF (0-1)
[2024-09-20 23:05] LABS: CREATININE 0.8 mg/dL (0.5-1.0); POTASSIUM 4.4 mmol/L (3.5-5.1)
[2024-09-20 23:09] LABS: ALBUMIN 3.4 g/dL (3.5-5.0); BILIRUBIN,TOTAL 0.4 mg/dL (0.2-1.0); TOTAL PROTEIN, SERUM 7.2 g/dL (6.0-8.3)
[2024-09-20] MEDS: ondanSETRON 4MG INJ IVP ONE (23:14)
[2024-09-20] MEDS: LACTATED RINGERS 1000ML 1,000 ML IV ONE (23:14)
[2024-09-20] MEDS ORDERED: LEVO-70 PO (23:39)
[2024-09-20] MEDS: CEFTRIAXONE 2GM VIAL IVPB ONE (23:52)
[2024-09-21 00:22] VITALS: BP 124/49; PULSE 64; RESP 18; O2SAT 99
== END 2024-09-21 00:54 | disposition home or self-care (01) ==
LOC: EDH 22:20
DX: N39.0 Urinary tract infection, site not specified (principal); E11.9 Type 2 diabetes mellitus without complications; I10 Essential (primary) hypertension; Z79.899 Other long term (current) drug therapy; Z98.890 Other specified postprocedural states
CPT/HCPCS: 99284; 96374; 96375; 80053; 83690; 85025; 87086 ×2; 87186; 81001; 36415; J7120; J0696; J2405

== ENCOUNTER 2024-10-11 21:00 | Emergency (ER) | payer SELFPAY ==
[~2024-10-11] VITALS: Ht 160 cm; Wt 64.4 kg
[~2024-10-11 21:00] MED LIST changes: +LEVO-70 PO
--- NOTE | 2024-10-11 21:06 | NUR ---
UA CUP PROVIDED WITH NUNS CAP
--- NOTE | 2024-10-11 21:13 | EKG ---
[facility] Test Date: 2024-10-11 Test Time: 21:10:43 Pat Name: BISHNU ARIZMENDI Department: ED Room: Gender: F Ultr[employer]ic Solderer: [id number] : 1935 Requested By: GIDEON ARIZMENDI Order Number: [id number] Reading MD: David Frost Measurements Intervals Snyder Rate: 65 P: 46 IA: 171 QRS: -42 QRSD: 136 T: 23 QT: 423 QTc: 445 Interpretive Statements Sinus rhythm Multiple premature complexes, vent & supraven Right bundle branch block Inferior infarct, old Compared to ECG 06/20/2024 22:16:58 Atrial premature complex(es) no longer present Myocardial infarct finding still present Electronically Signed On 10-13-2024 21:31:12 INSULATOR APPRENTICE by David Frost Please click the below link to view image of tracing.
[2024-10-11 21:53] LABS: BASOPHILS # (AUTO) 0.03 K/uL (0.00-0.20); BASOPHILS % (AUTO) 0.6 % (0.0-5.0); EOSINOPHILS # (AUTO) 0.16 K/uL (0.00-0.70); EOSINOPHILS % (AUTO) 3.1 % (0.0-8.0); HEMATOCRIT 35.3 % (36-48); IMMATURE GRANULOCYTE ABSOLUTE 0.01 K/uL (0-1); LYMPHOCYTES # (AUTO) 1.4 K/uL (1.0-4.8); LYMPHOCYTES % (AUTO) 27.4 % (21.0-51.0); MEAN CORPUSCULAR HEMOGLOBIN 30.2 pg (27.0-33.0); MEAN CORPUSCULAR HGB CONC 33.1 g/dL (32.0-36.0); MONOCYTES # (AUTO) 0.6 K/uL (0.1-1.0); MONOCYTES % (AUTO) 11.6 % (3.0-13.0); NEUTROPHILS % (AUTO) 57.1 % (40.0-77.0); PLATELET COUNT (AUTO) 155 K/uL (130-400); RED BLOOD CELL COUNT(AUTO) 3.88 MIL/uL (4.00-5.50); RED CELL DISTRIBUTION WIDTH 12.6 % (11.0-15.5); WHITE BLOOD COUNT (AUTO) 5.2 K/uL (4.8-10.8)
[2024-10-11 21:55] LABS: APPEARANCE,URINE CLEAR (CLEAR); BILIRUBIN,URINE NEGATIVE (NEGATIVE); COLOR,URINE COLORLESS (YELLOW); GLUCOSE, URINE (UA) NEGATIVE (NEGATIVE); KETONES,URINE NEGATIVE (NEGATIVE); LEUKOCYTE ESTERASE ,URINE NEGATIVE Leu/uL (NEGATIVE); NITRATE,URINE NEGATIVE (NEGATIVE); OCCULT BLOOD,URINE NEGATIVE (NEGATIVE); PROTEIN,URINE NEGATIVE (NEGATIVE); UROBILINOGEN,URINE 0.2 mg/dL (0.2-1.0)
[2024-10-11 21:59] LABS: ADD UA MICROSCOPIC NO
[2024-10-11 22:07] LABS: CREATININE 0.8 mg/dL (0.5-1.0); POTASSIUM 4.4 mmol/L (3.5-5.1)
[2024-10-11 22:16] LABS: ALBUMIN 3.2 g/dL (3.5-5.0); BILIRUBIN,DIRECT 0.1 mg/dL (0.0-0.3); BILIRUBIN,TOTAL 0.3 mg/dL (0.2-1.0); MAGNESIUM 1.6 mg/dL (1.80-2.40); TOTAL PROTEIN, SERUM 7.3 g/dL (6.0-8.3)
[2024-10-12 00:25] VITALS: BP 128/59; PULSE 56; RESP 17; TEMP 97.3; O2SAT 100
--- NOTE | 2024-10-12 00:54 | ERN ---
ED Note History of Present Illness Stated Complaint: ABDOMINAL PAIN Chief Complaint: Multiple Complaints Time Seen by MD: 21:13 Time Seen by Midlevel: 21:20 Dictation: 88-year-old female brought in by daughter for multiple complaints, states she has right upper quadrant pain and throat pain and dysuria. Denies having any fever, nausea, vomiting or diarrhea. He is having any chest pain or chest discomfort. Allergies: Coded Allergies: No Known Drug Allergies (Unverified Allergy, Unknown, 07/25/22) Home Meds Active Scripts Levofloxacin (Levofloxacin) 500 Mg Tablet, 500 MG PO DAILY for 10 Days, #10 TAB Prov:GIDEON ARIZMENDI MD 09/20/24 Phenazopyridine HCl (Pyridium) 100 Mg Tab, 100 MG PO DAILY for 3 Days, #3 TAB 0 Refills Prov:NABEEL DAY MD 08/13/24 Cephalexin Monohydrate (Keflex) 500 Mg Cap, 500 MG PO BID for 5 Days, #10 CAP Prov:ELVA PRITCHETT MD 05/11/24 Lactulose (Lactulose) 20 Gram/30 Ml Solution, 20 GM PO BID, #180 ML Prov:JOSE ANTONIO CERVANTES 04/21/24 Ciprofloxacin HCl (Ciprofloxacin HCl) 500 Mg Tablet, 500 MG PO BID for 10 Days, #20 TAB Prov:JOSE ANTONIO CERVANTES 04/21/24 Sennosides (Senna) 8.6 Mg Tablet, 8.6 MG PO DAILYDINNER, #30 TAB Prov:KATELYN MOSQUERA MD 03/29/24 Ciprofloxacin HCl (Cipro) 500 Mg Tablet, 1 TAB PO BID for 10 Days, #20 TAB 0 Refills Prov:KATELYN MOSQUERA MD 03/29/24 Nitrofurantoin Monohyd/M-Cryst (Macrobid 100 mg Capsule) 100 Mg Capsule, 100 MG PO BIDAC for uti for 7 Days, #14 CAP 0 Refills Prov:GIDEON ARIZMENDI MD 03/16/24 Polyethylene Glycol 3350 (Miralax) 17 Gram Powd.pack, 17 GM PO DAILY, #30 0 Refills Prov:NOEL ALCARAZ MD 01/24/24 Risperidone (Risperdal 1Mg Tab) 1 Mg Tablet, 1 MG PO DAILY19 for 30 Days, #30 TAB TAKE IT AT 9:00 PM Prov:MAURICE VASQUEZ MD 11/06/23 Risperidone (Risperdal 1Mg Tab) 1 Mg Tablet, 0.5 MG PO AM for 30 Days, #30 TAB 1 Refill TAKE IT IN THE MORNING Prov:MAURICE VASQUEZ MD 11/06/23 Cephalexin Monohydrate (Keflex) 500 Mg Cap, 500 MG PO Q12H, #14 CAP 0 Refills Prov:MERRILL JEAN 08/09/23 Cholecalciferol (Vitamin D3) (Vitamin D3) 25 Mcg (1000 Unit) Tablet, 25 MCG PO DAILY, #30 TAB 0 Refills Prov:MERRILL JEAN 08/09/23 Lactulose (Lactulose) 20 Gram/30 Ml Solution, 20 GM PO BID, #180 ML Prov:MERRILL JEAN 08/09/23 Reported Medications [Vitamin D3] No Conflict Check 11/02/23 Cetirizine HCl (Cetirizine HCl) 10 Mg Tablet, 10 MG PO AD for ALLERGIES, TAB 08/08/23 Furosemide (Lasix 20Mg Tab) 20 Mg Tablet, 20 MG PO AM, TAB 07/27/22 Lisinopril (Lisinopril) 40 Mg Tablet, 40 MG PO DAILY, TAB 07/26/22 Amlodipine Besylate (Amlodipine Besylate) 5 Mg Tablet, 5 MG PO BID, TAB 07/26/22 Past Medical History Past Medical History: Diabetes-Type II, Hypertension, UTI, Other Additional Past Medical Hx: POOR HISTORIAN Surgical History: Cholecystectomy, Other, Surgical History Other: POOR HISTORIANS Family History: CAD, DM, HTN Social History: Negative, Lives with family History: Not Applicable Review of System Dictation Constitutional: Negative for fever,chills, and weight loss Eyes: Negative for injury, pain,redness, and discharge ENT: Negative for injury,pain or swelling complaining of throat pain Cardiovascular: Negative for chest pain, palpitations, and edema Respiratory: Negative for shortness of breath, cough, and wheezing, Abdomen/GI: Complaining of right upper quadrant pain, no nausea, no vomiting, no diarrhea, and constipation Back: Negative for injury and pain : Negative for injury, bleeding and discharge complaining of dysuria MS/Extremity: Negative for injury and deformity Skin: Negative for rash, and discoloration Neuro: Negative for headache, weakness, numbness, tingling, and seizure Psych: Negative for suicide ideation, homicidal ideation, and hallucinations Review of Systems: was completed Initial Vital Sign VS Vital Signs Date Time Temp Pulse Resp B/P (MAP) Pulse Ox O2 Delivery O2 Flow Rate FiO2 10/11/24 21:00 96.8 66 20 182/72 100 Room Air 10/12/24 00:25 0 21 Physical Exam Dictation General: awake, alert, NAD Head/Face: Normocephalic, atraumatic Eyes: PERRL, EOMI, vision at baseline ENT: oral cavity clear, TMs clear, no signs of infection Neck: Trachea midline, supple, no nuchal rigidity Cardiovascular: RRR, normal S1/S2, No MRGs, no JVD Respiratory: CTAB, no respiratory distress, No rales or wheezes Abdomen: Soft, non-tender, non-distended, normal bowel sounds, no guarding or rebound. Skin: Warm, dry, normal turgor, no rash MS/Extremity: Pulses equal, no cyanosis, neurovascular intact, FROM Neuro: COAx4, GCS 15, strength 5/5, CN 2-12 intact, normal cerebellar exam, normal gait, Psych: Normal behavior, mood, and affect normal Results (Laboratory/Radiology) Laboratory/Radiology Laboratory Tests Test 10/11/24 21:40 10/11/24 21:43 10/12/24 00:24 Urine Color COLORLESS (YELLOW) Urine Appearance CLEAR (CLEAR) Urine pH 7.0 (5.0-8.0) Urine Specific [place] 1.003 (1.001-1.031) Urine Protein NEGATIVE mg/dL (NEGATIVE) Urine Glucose (UA) NEGATIVE mg/dL (NEGATIVE) Urine Ketones NEGATIVE mg/dL (NEGATIVE) Urine Occult Blood NEGATIVE (NEGATIVE) Urine Nitrate NEGATIVE (NEGATIVE) Urine Bilirubin NEGATIVE mg/dL (NEGATIVE) Urine Urobilinogen 0.2 mg/dL (0.2-1.0) Urine Leukocyte Esterase NEGATIVE Alberto/uL White Blood Count 5.2 K/uL (4.8-10.8) Red Blood Count 3.88 MIL/uL (4.00-5.50) L Hemoglobin 11.7 g/dL (12.0-16.0) L Hematocrit 35.3 % (36-48) L Mean Corpuscular Volume 91.0 fL (79-99) Mean Corpuscular Hemoglobin 30.2 pg (27.0-33.0) Mean Corpuscular Hemoglobin Concent 33.1 g/dL (32.0-36.0) Red Cell Distribution Width 12.6 % (11.0-15.5) Platelet Count 155 K/uL (130-400) Mean Platelet Volume 11.8 fL (7.5-10.5) H Immature Granulocyte % (Auto) 0.2 % (0-1) Neutrophils (%) (Auto) 57.1 % (40.0-77.0) Lymphocytes (%) (Auto) 27.4 % (21.0-51.0) Monocytes (%) (Auto) 11.6 % (3.0-13.0) Eosinophils (%) (Auto) 3.1 % (0.0-8.0) Basophils (%) (Auto) 0.6 % (0.0-5.0) Neutrophils # (Auto) 3.0 K/uL (1.8-7.7) Lymphocytes # (Auto) 1.4 K/uL (1.0-4.8) Monocytes # (Auto) 0.6 K/uL (0.1-1.0) Eosinophils # (Auto) 0.16 K/uL (0.00-0.70) Basophils # (Auto) 0.03 K/uL (0.00-0.20) Absolute Immature Granulocyte (auto 0.01 K/uL (0-1) Nucleated Red Blood Cells 0.0 % (0.0-0.19) Sodium Level 136 mmol/L (136-145) Potassium Level 4.4 mmol/L (3.5-5.1) Chloride Level 105 mmol/L (101-111) Carbon Dioxide Level 26 mmol/L (21-32) Blood Urea Nitrogen 20 mg/dL (7-18) H Creatinine 0.8 mg/dL (0.5-1.0) Glomerular Filtration Rate Calc 71 mL/min (>90) Random Glucose 104 mg/dL (70-105) Total Calcium 9.9 mg/dL (8.5-10.1) Magnesium Level 1.60 mg/dL (1.80-2.40) L Total Bilirubin 0.3 mg/dL (0.2-1.0) Direct Bilirubin 0.1 mg/dL (0.0-0.3) Aspartate Amino Transf (AST/SGOT) 18 U/L (10-37) Alanine Aminotransferase (ALT/SGPT) 15 U/L (12-78) Alkaline Phosphatase 91 U/L (50-136) Total Creatine Kinase 39 U/L (21-232) # Troponin I High Sensitivity 16 ng/L (4-50) Total Protein 7.3 g/dL (6.0-8.3) Albumin 3.2 g/dL (3.5-5.0) L Lipase 43 U/L (16-77) Group A Streptococcus Rapid negative (NEGATIVE) Labs Reviewed?: Yes EKG Comment: Date:10/12/24 [id number]: Ventricular rate:65 MD interval:171 QRS duration:-42 QT/QTc:423/445 EKG interpretation: Sinus rhythm, multiple premature complex, right bundle branch block, a for infarct, old Reviewed by ED Attending no STEMI interpreted by ER MD ED Course ED Course Orders Procedure Category Date Status Time Chest 1vw RAD 10/11/24 Taken 21:06 12 Lead Ekg Tracing- EKG 10/11/24 Complete Technical 21:06 Troponin I High LAB 10/11/24 Complete Sensitivity 21:06 Urinalysis Profile LAB 10/11/24 Complete 21:06 Cbc With Differential LAB 10/11/24 Complete 21:06 Basic Metabolic Panel LAB 10/11/24 Complete 21:06 Magnesium LAB 10/11/24 Complete 21:06 Lipase LAB 10/11/24 Complete 21:06 Hepatic Function Panel LAB 10/11/24 Complete 21:06 Creatine Kinase, Total LAB 10/11/24 Complete 21:06 Rapid (Group A Strep) LAB 10/11/24 Complete 22:04 Vital Signs Date Time Temp Pulse Resp B/P (MAP) Pulse Ox O2 Delivery O2 Flow Rate FiO2 10/12/24 00:25 97.3 56 17 128/59 100 Room Air* 0 21 10/11/24 21:00 96.8 66 20 182/72 100 Room Air Medical Decision Making MDM MDM: 88-year-old female brought in by daughter for multiple complaints, states she has right upper quadrant pain and throat pain and dysuria. Denies having any fever, nausea, vomiting or diarrhea. He is having any chest pain or chest discomfort.CBC shows some leukocytosis, mild normocytic anemia, no thrombocytope sandrine. Chemistry shows hypomagnesemia at 1.6. No transaminitis. T bili within normal range, lipase within normal range. UA shows no evidence of urinary tract infection. Negative for strep throat. Troponin is negative. EKGs shows pulmonary congestion or pneumonitis, consistent with previous visit. Interpreted by me. Discussed findings with family. Educated she might have abd ominal pain from eating something that does not settle with her stomach. Educated to follow up with her PCP tomorrow or in the next 1-2 days. Daughter verbalized understanding, answered all questions. Differential diagnosis: UTI, cholecystitis, pancreatitis, gastritis Rationale: Tests considered and ordered secondary to shared decision making include: Previous outside records reviewed: Old ER visits. Risk of complication and/or morbidity or mortality of patient management: None Medications-Per medication reconciliation Need for hospitalization: Patient does not meet criteria for hospitalization. Need for emergency major/minor surgery: No There are no social concerns with this patient. Prescription drug management Prescriptions will include symptomatic care Patient's prior external medical records from other ER visits were reviewed by me as indicated. Prior testing and results from previous visits were reviewed. Prior tests were taken into account with medical decision making and resource utilization, independent historian/historians were used to obtain complete medical history. I independently interpreted the test that were performed, results were reviewed by me and considered findings on radiology if ordered. Medical management and examination interpretation discussions were had by me with other qualified healthcare professionals as indicated for the patient's care. DX & DISP Disposition: Discharge Departure Impression: Primary Impression: Nonspecific abdominal pain Condition: Stable Additional Instructions: Please follow up with your primary doctor in 1-2 days and return to the ER if symptoms worsen. Referrals: GRACY FLORIAN PA-C (PCP) Time of Disposition: 01:02 I have reviewed the case, and I agree with, Diagnosis and Plan CHELSI HERNANDEZ NP Oct 12, 2024 00:54
--- NOTE | 2024-10-12 08:22 | HMCIMG ---
CHEST 1VW REASON: ABD PAINI COMPARISON: 09/11/2024 FINDINGS: Single view of the chest was obtained. Lungs are clear. There is mild cardiomegaly, unchanged.. There is no pulmonary vascular congestion. Mediastinum and bony thorax appear unremarkable. IMPRESSION: 1. Mild cardiomegaly, unchanged, no acute finding.
== END 2024-10-12 01:14 | disposition home or self-care (01) ==
LOC: EDH 21:00
DX: R10.11 Right upper quadrant pain (principal); E11.9 Type 2 diabetes mellitus without complications; I10 Essential (primary) hypertension; Z79.899 Other long term (current) drug therapy; Z90.49 Acquired absence of other specified parts of digestive tract
CPT/HCPCS: 36415; 71045; 80048; 80076; 81003; 82550; 83690; 83735; 84484; 85025; 87880; 93005; 99285

== ENCOUNTER 2024-11-03 21:10 | Emergency (ER) | payer MEDICAID ==
[~2024-11-03] VITALS: Ht 144.8 cm; Wt 68.0 kg
--- NOTE | 2024-11-03 21:36 | ERN ---
ED Note History of Present Illness Stated Complaint: RT ABD PAIN Chief Complaint: Abdominal Pain Time Seen by MD: 21:17 Dictation: PATIENT IS AN 88-YEAR-OLD FEMALE HERE WITH HER DAUGHTER WITH COMPLAINTS OF ACUTE ONSET OF RIGHT LOWER QUADRANT PAIN WITHOUT NAUSEA VOMITING FEVER CHILLS TWO DAYS PRIOR TO ARRIVAL. THEY DENY CHANGES IN URINATION HAVE NOT HAD A CHANCE TO SEE THEIR PRIMARY CARE DOCTOR. Allergies: Coded Allergies: No Known Drug Allergies (Unverified Allergy, Unknown, 07/25/22) Home Meds Active Scripts Levofloxacin (Levofloxacin) 500 Mg Tablet, 500 MG PO DAILY for 10 Days, #10 TAB Prov:GIDEON ARIZMENDI MD 09/20/24 Phenazopyridine HCl (Pyridium) 100 Mg Tab, 100 MG PO DAILY for 3 Days, #3 TAB 0 Refills Prov:NABEEL DAY MD 08/13/24 Cephalexin Monohydrate (Keflex) 500 Mg Cap, 500 MG PO BID for 5 Days, #10 CAP Prov:ELVA PRITCHETT MD 05/11/24 Lactulose (Lactulose) 20 Gram/30 Ml Solution, 20 GM PO BID, #180 ML Prov:JOSE ANTONIO CERVANTES 04/21/24 Ciprofloxacin HCl (Ciprofloxacin HCl) 500 Mg Tablet, 500 MG PO BID for 10 Days, #20 TAB Prov:JOSE ANTONIO CERVANTES 04/21/24 Sennosides (Senna) 8.6 Mg Tablet, 8.6 MG PO DAILYDINNER, #30 TAB Prov:KATELYN MOSQUERA MD 03/29/24 Ciprofloxacin HCl (Cipro) 500 Mg Tablet, 1 TAB PO BID for 10 Days, #20 TAB 0 Refills Prov:KATELYN MOSQUERA MD 03/29/24 Nitrofurantoin Monohyd/M-Cryst (Macrobid 100 mg Capsule) 100 Mg Capsule, 100 MG PO BIDAC for uti for 7 Days, #14 CAP 0 Refills Prov:GIDEON ARIZMENDI MD 03/16/24 Polyethylene Glycol 3350 (Miralax) 17 Gram Powd.pack, 17 GM PO DAILY, #30 0 Refills Prov:NOEL ALCARAZ MD 01/24/24 Risperidone (Risperdal 1Mg Tab) 1 Mg Tablet, 1 MG PO DAILY19 for 30 Days, #30 TAB TAKE IT AT 9:00 PM Prov:MAURICE VASQUEZ MD 11/06/23 Risperidone (Risperdal 1Mg Tab) 1 Mg Tablet, 0.5 MG PO AM for 30 Days, #30 TAB 1 Refill TAKE IT IN THE MORNING Prov:MAURICE VASQUEZ MD 11/06/23 Cephalexin Monohydrate (Keflex) 500 Mg Cap, 500 MG PO Q12H, #14 CAP 0 Refills Prov:MERRILL JEAN 08/09/23 Cholecalciferol (Vitamin D3) (Vitamin D3) 25 Mcg (1000 Unit) Tablet, 25 MCG PO DAILY, #30 TAB 0 Refills Prov:MERRILL JEAN 08/09/23 Lactulose (Lactulose) 20 Gram/30 Ml Solution, 20 GM PO BID, #180 ML Prov:MERRILL JEAN 08/09/23 Reported Medications [Vitamin D3] No Conflict Check 11/02/23 Cetirizine HCl (Cetirizine HCl) 10 Mg Tablet, 10 MG PO AD for ALLERGIES, TAB 08/08/23 Furosemide (Lasix 20Mg Tab) 20 Mg Tablet, 20 MG PO AM, TAB 07/27/22 Lisinopril (Lisinopril) 40 Mg Tablet, 40 MG PO DAILY, TAB 07/26/22 Amlodipine Besylate (Amlodipine Besylate) 5 Mg Tablet, 5 MG PO BID, TAB 07/26/22 Past Medical History Past Medical History: Diabetes-Type II, Hypertension, UTI, Other Additional Past Medical Hx: POOR HISTORIAN Surgical History: Cholecystectomy, Other, Surgical History Other: POOR HISTORIANS Family History: CAD, DM, HTN Social History: Negative, Lives with family History: Not Applicable RN Note Reviewed/Agreed w/PFSH: Yes Review of System Dictation CONSTITUTIONAL: NEGATIVE EXCEPT FOR HPI HEAD/FACE: NEGATIVE EXCEPT FOR HPI EENT: NEGATIVE EXCEPT FOR HPI RESPIRATORY: NEGATIVE EXCEPT FOR HPI GASTROINTESTINAL/ABDOMINAL: NEGATIVE EXCEPT FOR HPI RIGHT LOWER QUADRANT PAIN GENITOURINARY: NEGATIVE EXCEPT FOR HPI MUSCULOSKELETAL: NEGATIVE EXCEPT FOR HPI INTEGUMENTARY: NEGATIVE EXCEPT FOR HPI NEUROLOGICAL/PSYCH: NEGATIVE EXCEPT FOR HPI HEMATOLOGIC/LYMPHATIC: NEGATIVE EXCEPT FOR HPI ALL SYSTEMS NEGATIVE, EXCEPT NOTED ABOVE. 13 POINT REVIEW OF SYSTEMS ASSESSED AND ALL NEGATIVE EXCEPT FOR ABOVE. Initial Vital Sign VS Vital Signs Date Time Temp Pulse Resp B/P (MAP) Pulse Ox O2 Delivery O2 Flow Rate FiO2 11/03/24 21:11 99.0 81 14 126/77 100 Room Air 11/03/24 21:26 0 21 Physical Exam Dictation VITAL SIGNS REVIEWED GENERAL APPEARANCE: ALERT, ORIENTED X 3, MODERATE ACUTE DISTRESS HEAD AND FACE: NON-TRAUMATIC. EYES: PERRL, PINK CONJUNCTIVAS, EYELID NO TRAUMA, ANTERIOR CHAMBER WITH ARCUS SENILIS. EARS: PINNAS INTACT AND NO SIGNS OF TRAUMA OR ERYTHEMA EAR CANALS CLEAR AND NO DISCHARGE TM NO ERYTHEMA NOSE: NO DISCHARGE, NO BLEEDING. OROPHARYNX: MOUTH NORMAL, TONGUE PINK, PHARYNX CLEAR,NO ERYTHEMA, TONSILS NO EXUDATES, NO ABSCESSES NOTED, MUCOUS MEMBRANE MOIST NECK: SUPPLE, NON-TENDER, NO THYROMEGALY, NO MASSES, NO JVD, NO BRUITS BREAST:DEFERRED CHEST:NO TENDERNESS, NO CREPITUS, NO PARADOXICAL MOVEMENT, NO RETRACTIONS LUNGS:CLEAR, WELL-VENTILATED, SYMMETRIC, NO RALES, NO WHEEZING, NO RHONCHI, NO STRIDOR, GOOD BREATH SOUNDS BILATERALLY HEART: REGULAR RATE, REGULAR RHYTHM, NO MURMUR, NO GALLOPS VASCULAR: NO PERIPHERAL EDEMA, ABDOMEN: SOFT, POSITIVE BOWEL SOUNDS, NONDISTENDED, NO GUARDING, REBOUND TENDERNESS TO RIGHT LOWER QUADRANT RECTAL: DEFERRED GENITAL: DEFERRED NEUROLOGICAL: NORMAL SPEECH, MOTOR FUNCTION INTACT, SENSORY FUNCTION INTACT MUSCULOSKELETAL: NECK NONTENDER, FULL RANGE OF MOTION, BACK NONTENDER, FULL RANGE OF MOTION, EXTREMITIES: NONTENDER, FULL RANGE OF MOTION SKIN: COLOR PINK, DRY, NO TURGOR, NO RASH, NO LACERATIONS, NO ABRASIONS, NO CONTUSIONS. LYMPHATIC: DEFERRED Results (Laboratory/Radiology) Laboratory/Radiology Laboratory Tests Test 11/03/24 21:38 11/03/24 21:52 11/03/24 22:09 White Blood Count 5.9 K/uL (4.8-10.8) Red Blood Count 3.93 MIL/uL (4.00-5.50) L Hemoglobin 12.0 g/dL (12.0-16.0) Hematocrit 35.8 % (36-48) L Mean Corpuscular Volume 91.1 fL (79-99) Mean Corpuscular Hemoglobin 30.5 pg (27.0-33.0) Mean Corpuscular Hemoglobin Concent 33.5 g/dL (32.0-36.0) Red Cell Distribution Width 12.4 % (11.0-15.5) Platelet Count 182 K/uL (130-400) Mean Platelet Volume 11.8 fL (7.5-10.5) H Immature Granulocyte % (Auto) 0.3 % (0-1) Neutrophils (%) (Auto) 62.1 % (40.0-77.0) Lymphocytes (%) (Auto) 25.2 % (21.0-51.0) Monocytes (%) (Auto) 9.5 % (3.0-13.0) Eosinophils (%) (Auto) 2.2 % (0.0-8.0) Basophils (%) (Auto) 0.7 % (0.0-5.0) Neutrophils # (Auto) 3.7 K/uL (1.8-7.7) Lymphocytes # (Auto) 1.5 K/uL (1.0-4.8) Monocytes # (Auto) 0.6 K/uL (0.1-1.0) Eosinophils # (Auto) 0.13 K/uL (0.00-0.70) Basophils # (Auto) 0.04 K/uL (0.00-0.20) Absolute Immature Granulocyte (auto 0.02 K/uL (0-1) Nucleated Red Blood Cells 0.0 % (0.0-0.19) Urine Color YELLOW (YELLOW) Urine Appearance CLEAR (CLEAR) Urine pH 5.5 (5.0-8.0) Urine Specific [place] 1.021 (1.001-1.031) Urine Protein 10 mg/dL (NEGATIVE) H Urine Glucose (UA) NEGATIVE mg/dL (NEGATIVE) Urine Ketones NEGATIVE mg/dL (NEGATIVE) Urine Occult Blood NEGATIVE (NEGATIVE) Urine Nitrate NEGATIVE (NEGATIVE) Urine Bilirubin NEGATIVE mg/dL (NEGATIVE) Urine Urobilinogen 2.0 mg/dL (0.2-1.0) H Urine Leukocyte Esterase 75 Alberto/uL (NEGATIVE) H Urine RBC 6-10 /HPF (0-1) H Urine WBC 51-100 /HPF (0-1) H Urine WBC Clumps (Auto) RARE /HPF (0-1) Urine Squamous Epithelial Cells RARE /HPF (0-2) Urine Bacteria FEW /HPF (None Seen) Urine Hyaline Casts 11-25 /LPF (0-1 /LPF) H Sodium Level 139 mmol/L (136-145) Potassium Level 4.8 mmol/L (3.5-5.1) Chloride Level 106 mmol/L (101-111) Carbon Dioxide Level 27 mmol/L (21-32) Blood Urea Nitrogen 21 mg/dL (7-18) H Creatinine 1.0 mg/dL (0.5-1.0) Glomerular Filtration Rate Calc 55 mL/min (>90) Random Glucose 108 mg/dL (70-105) H Total Calcium 10.1 mg/dL (8.5-10.1) Lipase 28 U/L (16-77) trast was not given. FINDINGS: No pleural effusion is seen bilaterally. Mild left lower lung pulmonary infiltrates are seen. Degenerative changes of the thoracolumbar spine are present. The heart is not enlarged. The liver, spleen, adrenal glands and pancreas are unremarkable. There is no evidence of hydronephrosis bilaterally. No evidence of renal stone is seen. Fecal material is seen in the colon. There are normal size retroperitoneal and mesenteric lymph nodes. No ascites is seen. Fecal material is seen in the colon. Uterus is enlarged may be related to fibroid uterus. There is diverticulosis. Pelvic sidewalls are symmetric bilaterally. Bladder is poorly distended with apparent wall thickening. If there is clinical suspicion for cystitis, urinalysis correlation IMPRESSION: 1. Fecal material is seen in the colon. Uterus is enlarged may be related to fibroid uterus. There is diverticulosis. Mild left lung pulmonary infiltrates. Labs Reviewed?: Yes ED Course ED Course Orders Procedure Category Date Status Time Cbc With Differential LAB 11/03/24 Complete : Urinalysis Profile LAB 11/03/24 Complete 21:33 Ct Abdomen/Pelvis CT 11/03/24 Resulted W/Contrast 21:33 0.9%Nacl 1000ml (Ns PHA 11/03/24 Complete 1000ml) 22:00 Ketorolac PHA 11/03/24 Complete Tromethamine 15mg/Ml 22:00 Basic Metabolic Panel LAB 11/03/24 Complete 21:57 Lipase LAB 11/03/24 Complete 21:57 Culture Urine SONNY 11/03/24 In Process 22:02 Iohexol (Omnipaque) PHA 11/03/24 Complete 22:02 Current Medications Medications (Trade) Dose Ordered Sig/[place] Route PRN Reason Start Time Stop Time Status Last Admin Dose Admin Iohexol (Omnipaque) 75 ml STK-MED ONCE IV 11/03/24 22:02 11/03/24 22:02 DC Ketorolac Tromethamine (toRADol) 15 mg ONCE ONCE IV 11/03/24 22:00 11/03/24 22:01 DC 11/03/24 21:54 Sodium Chloride 1,000 ml @ 0 mls/hr ONCE ONCE IV 11/03/24 22:00 11/03/24 22:01 DC 11/03/24 21:54 Vital Signs Date Time Temp Pulse Resp B/P (MAP) Pulse Ox O2 Delivery O2 Flow Rate FiO2 11/03/24 23:23 98.1 69 18 141/72 97 Room Air* 0 21 11/03/24 22:25 98.1 71 16 154/78 97 Room Air* 0 21 11/03/24 21:26 98.8 78 14 169/70 97 Room Air* 0 21 11/03/24 21:11 99.0 81 14 126/77 100 Room Air 2332/patient denies pain at this time. Discharged home with a uterine fibroid and acute UTI told to see your primary care doctor for referral to a public events facilities rental manager doc don in the nearest area Medical Decision Making MDM MDM: Differential diagnosis: Appendicitis/diverticulitis/UTI/hernia/uterine fibroid/electrolyte imbalance/dehydration Rationale: Tests considered and ordered secondary to shared decision making include: CT/labs Previous outside records reviewed: Old ER visits. Risk of complication and/or morbidity or mortality of patient management: None reviewed Medications-Per medication reconciliation Need for hospitalization: Patient does not meet criteria for hospitalization. No Need for emergency major/minor surgery: No There are no social concerns with this patient. Prescription drug management Macrodantin/ibuprofen Prescriptions will include symptomatic care Patient's prior external medical records from other ER visits were reviewed by me as indicated. Prior testing and results from previous visits were reviewed. Prior tests were taken into account with medical decision making and resource utilization, independent historian/historians were used to obtain complete medical history. I independently interpreted the test that were performed, results were reviewed by me and considered findings on radiology if ordered. Medical management and examination interpretation discussions were had by me with other qualified healthcare professionals as indicated for the patient's care. DX & DISP Disposition: Discharge Departure Impression: Primary Impression: Acute cystitis with hematuria Additional Impression: Uterine fibroid Condition: Stable Scripts Ibuprofen (Ibuprofen) 600 Mg Tablet 600 MG PO Q6H PRN for PAIN, #30 TAB Prov: ALICE FRANCO DRY COLOR TESTER 11/03/24 Nitrofurantoin/Nitrofuran Mac (Macrobid) 100 Mg Cap 1 CAP PO BID for 7 Days, #14 CAP 0 Refills Prov: ALICE FRANCO DRY COLOR TESTER 11/03/24 Additional Instructions: Follow-up with primary care provider in 1 to 2 days. Take medications as directed here in the emergency room. Okay to continue home medications unless otherwise discussed during your visit in the emergency room today. Return to your nearest emergency room if symptoms worsen or if there is no improvement. Call 911 if you need immediate assistance. Take Tylenol or Motrin [id number] as needed and if no contraindications are present. Increase oral hydration. A wound culture or urine culture was ordered here in the emerge ncy room department please follow-up with primary care provider and advise them to get repeat ports from our facility. If you had any Carlos wrap/splints that were applied here, please do not remove them until you see your primary care or specialty. Take antibiotics as directed until gone. Follow up with your primary care doctor at [facility] in the next 1-2 days. Referrals: GRACY FLORIAN PA-C (PCP) Time of Disposition: 23:34 I have reviewed the case, and I agree with, Diagnosis and Plan ALICE FRANCO NP Nov 03, 2024 21:36
[2024-11-03 21:52] LABS: BASOPHILS # (AUTO) 0.04 K/uL (0.00-0.20); BASOPHILS % (AUTO) 0.7 % (0.0-5.0); EOSINOPHILS # (AUTO) 0.13 K/uL (0.00-0.70); EOSINOPHILS % (AUTO) 2.2 % (0.0-8.0); HEMATOCRIT 35.8 % (36-48); IMMATURE GRANULOCYTE ABSOLUTE 0.02 K/uL (0-1); LYMPHOCYTES # (AUTO) 1.5 K/uL (1.0-4.8); LYMPHOCYTES % (AUTO) 25.2 % (21.0-51.0); MEAN CORPUSCULAR HEMOGLOBIN 30.5 pg (27.0-33.0); MEAN CORPUSCULAR HGB CONC 33.5 g/dL (32.0-36.0); MEAN CORPUSCULAR VOLUME 91.1 fL (79-99); MONOCYTES # (AUTO) 0.6 K/uL (0.1-1.0); MONOCYTES % (AUTO) 9.5 % (3.0-13.0); NEUTROPHILS # (AUTO) 3.7 K/uL (1.8-7.7); NEUTROPHILS % (AUTO) 62.1 % (40.0-77.0); PLATELET COUNT (AUTO) 182 K/uL (130-400); RED BLOOD CELL COUNT(AUTO) 3.93 MIL/uL (4.00-5.50); RED CELL DISTRIBUTION WIDTH 12.4 % (11.0-15.5); WHITE BLOOD COUNT (AUTO) 5.9 K/uL (4.8-10.8)
[2024-11-03] MEDS: 0.9%NACL 1000ML 1,000 ML IV ONE (21:54)
[2024-11-03] MEDS: ketOROlac 15MG/ML VIAL (15MG/ML) IV ONE (21:54)
--- NOTE | 2024-11-03 21:57 | NUR ---
PENDING GFR RESULTS, IV SITE, & CONSENT FOR CT EXAM.
[2024-11-03 22:01] LABS: APPEARANCE,URINE CLEAR (CLEAR); BILIRUBIN,URINE NEGATIVE (NEGATIVE); COLOR,URINE YELLOW (YELLOW); GLUCOSE, URINE (UA) NEGATIVE (NEGATIVE); KETONES,URINE NEGATIVE (NEGATIVE); LEUKOCYTE ESTERASE ,URINE 75 Leu/uL (NEGATIVE); NITRATE,URINE NEGATIVE (NEGATIVE); OCCULT BLOOD,URINE NEGATIVE (NEGATIVE); PH,URINE 5.5 (5.0-8.0); PROTEIN,URINE 10 mg/dL (NEGATIVE)
[2024-11-03 22:02] LABS: ADD UA MICROSCOPIC YES
[2024-11-03] MEDS ORDERED: IOHEXOL-350 75 ML VIAL IV ONE (22:02)
[2024-11-03 22:04] LABS: BACTERIA,URINE FEW /HPF (None Seen); MUCUS,URINE FEW LPF (None Seen); SQUAMOUS EPITHELIAL CELL,UR RARE /HPF (0-2); WBC CLUMP RARE /HPF (0-1); WBC,URINE 51-100 /HPF (0-1)
[2024-11-03 22:26] LABS: POTASSIUM 4.8 mmol/L (3.5-5.1)
--- NOTE | 2024-11-03 23:18 | HMCIMG ---
CT ABDOMEN/PELVIS W/CONTRAST HISTORY: Right lower abdominal pain COMPARISON: 05/11/2024 TECHNIQUE: Multiple sequential axial images of the abdomen and pelvis were obtained from the dome of the diaphragm through symphysis pubis. Patient was given 75 cc of Omnipaque through intravenous route. Oral contrast was not given. FINDINGS: No pleural effusion is seen bilaterally. Mild left lower lung pulmonary infiltrates are seen. Degenerative changes of the thoracolumbar spine are present. The heart is not enlarged. The liver, spleen, adrenal glands and pancreas are unremarkable. There is no evidence of hydronephrosis bilaterally. No evidence of renal stone is seen. Fecal material is seen in the colon. There are normal size retroperitoneal and mesenteric lymph nodes. No ascites is seen. Fecal material is seen in the colon. Uterus is enlarged may be related to fibroid uterus. There is diverticulosis. Pelvic sidewalls are symmetric bilaterally. Bladder is poorly distended with apparent wall thickening. If there is clinical suspicion for cystitis, urinalysis correlation IMPRESSION: 1. Fecal material is seen in the colon. Uterus is enlarged may be related to fibroid uterus. There is diverticulosis. Mild left lung pulmonary infiltrates. CT was performed with one or more following dose reduction techniques: automated exposure control, adjustment of the mA and kv according to patient's size, or use of a iterative reconstruction technique.
[2024-11-03 23:23] VITALS: BP 141/72; PULSE 69; RESP 18; TEMP 98.1; O2SAT 97
[2024-11-03] MEDS ORDERED: MACR100 PO (23:35)
[2024-11-03] MEDS ORDERED: IBUP-2070 PO (23:35)
== END 2024-11-03 23:48 | disposition home or self-care (01) ==
LOC: EDH 21:10
DX: N30.01 Acute cystitis with hematuria (principal); D25.9 Leiomyoma of uterus, unspecified; E11.9 Type 2 diabetes mellitus without complications; I10 Essential (primary) hypertension; Z79.899 Other long term (current) drug therapy; Z90.49 Acquired absence of other specified parts of digestive tract
CPT/HCPCS: 99285; 74177; 96374; 80048; 83690; 85025; 87086 ×2; 87186; 81001; 36415; J1885; J7030; Q9967

== ENCOUNTER 2024-12-26 20:16 | Emergency (ER) | payer SELFPAY ==
[~2024-12-26] VITALS: Ht 152.4 cm; Wt 64.4 kg
[~2024-12-26 20:16] MED LIST changes: +IBUP-2070 PO; +MACR100 PO
[2024-12-26 21:22] LABS: BASOPHILS # (AUTO) 0.04 K/uL (0.00-0.20); BASOPHILS % (AUTO) 0.8 % (0.0-5.0); EOSINOPHILS # (AUTO) 0.14 K/uL (0.00-0.70); EOSINOPHILS % (AUTO) 2.8 % (0.0-8.0); HEMATOCRIT 33.5 % (36-48); IMMATURE GRANULOCYTE ABSOLUTE 0.01 K/uL (0-1); LYMPHOCYTES # (AUTO) 1.7 K/uL (1.0-4.8); LYMPHOCYTES % (AUTO) 33.4 % (21.0-51.0); MEAN CORPUSCULAR HEMOGLOBIN 30.4 pg (27.0-33.0); MEAN CORPUSCULAR HGB CONC 33.4 g/dL (32.0-36.0); MONOCYTES # (AUTO) 0.6 K/uL (0.1-1.0); MONOCYTES % (AUTO) 11.7 % (3.0-13.0); NEUTROPHILS # (AUTO) 2.6 K/uL (1.8-7.7); NEUTROPHILS % (AUTO) 51.1 % (40.0-77.0); PLATELET COUNT (AUTO) 168 K/uL (130-400); RED BLOOD CELL COUNT(AUTO) 3.68 MIL/uL (4.00-5.50); RED CELL DISTRIBUTION WIDTH 12.7 % (11.0-15.5)
[2024-12-26 21:35] LABS: CREATININE 0.8 mg/dL (0.5-1.0); POTASSIUM 4.3 mmol/L (3.5-5.1)
[2024-12-26 21:38] LABS: INR 1.04 (0.85-1.15)
[2024-12-26 21:39] LABS: PARTIAL THROMBOPLASTIN TIME 24.5 SEC (26.3-35.5)
[2024-12-26 21:40] LABS: ALBUMIN 3.3 g/dL (3.5-5.0); BILIRUBIN,DIRECT 0.1 mg/dL (0.0-0.3); BILIRUBIN,TOTAL 0.3 mg/dL (0.2-1.0); TOTAL PROTEIN, SERUM 7.1 g/dL (6.0-8.3)
--- NOTE | 2024-12-26 21:46 | HMCIMG ---
CT ABDOMEN/PELVIS W/O CONTRAST HISTORY: Abdominal pain COMPARISON: 11/03/2024 TECHNIQUE: Multiple sequential axial images of the abdomen and pelvis were obtained from the dome of the diaphragm through symphysis pubis. Patient was not given contrast through intravenous route. Oral contrast was not given. FINDINGS: No pleural effusion is seen bilaterally. Mild interstitial fibrotic changes are seen. There is no evidence of parenchymal disease or pulmonary nodule of the visualized lower lungs. Coronary arterial calcifications are seen. Degenerative changes of the thoracolumbar spine are present. The heart is not enlarged. The liver, spleen, adrenal glands and pancreas are unremarkable. There is no evidence of hydronephrosis bilaterally. No evidence of renal stone is seen. Fecal material is seen in the colon. There are normal size retroperitoneal and mesenteric lymph nodes. No ascites is seen. Atherosclerotic changes are present. No CT evidence of acute appendicitis is seen. There is diverticulosis. Uterus is prominent may be related to fibroid uterus. Pelvic sidewalls are symmetric bilaterally. Bladder is well distended without wall thickening. IMPRESSION: 1. Diverticulosis. Fecal material in the colon. Mild interstitial fibrosis. CT was performed with one or more following dose reduction techniques: automated exposure control, adjustment of the mA and kv according to patient's size, or use of a iterative reconstruction technique.
[2024-12-26 22:50] LABS: APPEARANCE,URINE CLEAR (CLEAR); BILIRUBIN,URINE NEGATIVE (NEGATIVE); COLOR,URINE LIGHT-YELLOW (YELLOW); GLUCOSE, URINE (UA) NEGATIVE (NEGATIVE); KETONES,URINE NEGATIVE (NEGATIVE); LEUKOCYTE ESTERASE ,URINE 500 Leu/uL (NEGATIVE); NITRATE,URINE 2+ (NEGATIVE); OCCULT BLOOD,URINE NEGATIVE (NEGATIVE); PH,URINE 5.5 (5.0-8.0); PROTEIN,URINE NEGATIVE (NEGATIVE); UROBILINOGEN,URINE 0.2 mg/dL (0.2-1.0)
[2024-12-26 22:53] LABS: WBC,URINE 26-50 /HPF (0-1)
[2024-12-26 23:09] LABS: BACTERIA,URINE Few /HPF (None Seen)
[2024-12-26] MEDS ORDERED: NITR100C PO (23:17)
--- NOTE | 2024-12-26 23:17 | ERN ---
General Chief Complaint: Abdominal Pain Stated Complaint: ABD PAIN Time Seen by MD: 20:18 Time Seen by Midlevel: 20:18 Source: patient History of Present Illness Initial Comments 89 y/o female presents to the ED due to abdominal pain. Per family members unknown exact time of pain initiating. Patient was seen here few weeks ago due to similar complaint. Denies any nausea, vomiting, diarrhea, fevers, dysuria, hematuria or further associated symptoms. PMHx DM, HTN Allergies: Coded Allergies: No Known Drug Allergies (Unverified Allergy, Unknown, 07/25/22) Home Meds Active Scripts Nitrofurantoin Macrocrystal (Nitrofurantoin) 100 Mg Capsule, 1 CAP PO BID for 7 Days, #14 CAP 0 Refills Prov:FARRUKH TONG 12/26/24 Nitrofurantoin Monohyd/M-Cryst (Macrobid 100 mg Capsule) 100 Mg Capsule, 1 CAP PO BID for 7 Days, #14 CAP 0 Refills Prov:KATELYN MOSQUERA MD 12/01/24 Ibuprofen (Ibuprofen) 600 Mg Tablet, 600 MG PO Q6H PRN for PAIN, #30 TAB Prov:ALICE FRANCO NP 11/03/24 Nitrofurantoin/Nitrofuran Mac (Macrobid) 100 Mg Cap, 1 CAP PO BID for 7 Days, #14 CAP 0 Refills Prov:ALICE FRANCO NP 11/03/24 Levofloxacin (Levofloxacin) 500 Mg Tablet, 500 MG PO DAILY for 10 Days, #10 TAB Prov:GIDEON ARIZMENDI MD 09/20/24 Phenazopyridine HCl (Pyridium) 100 Mg Tab, 100 MG PO DAILY for 3 Days, #3 TAB 0 Refills Prov:NABEEL DAY MD 08/13/24 Cephalexin Monohydrate (Keflex) 500 Mg Cap, 500 MG PO BID for 5 Days, #10 CAP Prov:ELVA PRITCHETT MD 05/11/24 Lactulose (Lactulose) 20 Gram/30 Ml Solution, 20 GM PO BID, #180 ML Prov:JOSE ANTONIO CERVANTES 04/21/24 Ciprofloxacin HCl (Ciprofloxacin HCl) 500 Mg Tablet, 500 MG PO BID for 10 Days, #20 TAB Prov:JOSE ANTONIO CERVANTES 04/21/24 Sennosides (Senna) 8.6 Mg Tablet, 8.6 MG PO DAILYDINNER, #30 TAB Prov:KATELYN MOSQUERA MD 03/29/24 Ciprofloxacin HCl (Cipro) 500 Mg Tablet, 1 TAB PO BID for 10 Days, #20 TAB 0 Refills Prov:KATELYN MOSQUERA MD 03/29/24 Nitrofurantoin Monohyd/M-Cryst (Macrobid 100 mg Capsule) 100 Mg Capsule, 100 MG PO BIDAC for uti for 7 Days, #14 CAP 0 Refills Prov:GIDEON ARIZMENDI MD 03/16/24 Polyethylene Glycol 3350 (Miralax) 17 Gram Powd.pack, 17 GM PO DAILY, #30 0 Refills Prov:NOEL ALCARAZ MD 01/24/24 Risperidone (Risperdal 1Mg Tab) 1 Mg Tablet, 1 MG PO DAILY19 for 30 Days, #30 TAB TAKE IT AT 9:00 PM Prov:MAURICE VASQUEZ MD 11/06/23 Risperidone (Risperdal 1Mg Tab) 1 Mg Tablet, 0.5 MG PO AM for 30 Days, #30 TAB 1 Refill TAKE IT IN THE MORNING Prov:MAURICE VASQUEZ MD 11/06/23 Cephalexin Monohydrate (Keflex) 500 Mg Cap, 500 MG PO Q12H, #14 CAP 0 Refills Prov:MERRILL JEAN 08/09/23 Cholecalciferol (Vitamin D3) (Vitamin D3) 25 Mcg (1000 Unit) Tablet, 25 MCG PO DAILY, #30 TAB 0 Refills Prov:MERRILL JEAN 08/09/23 Lactulose (Lactulose) 20 Gram/30 Ml Solution, 20 GM PO BID, #180 ML Prov:MERRILL JEAN 08/09/23 Reported Medications [Vitamin D3] No Conflict Check 11/02/23 Cetirizine HCl (Cetirizine HCl) 10 Mg Tablet, 10 MG PO AD for ALLERGIES, TAB 08/08/23 Furosemide (Lasix 20Mg Tab) 20 Mg Tablet, 20 MG PO AM, TAB 07/27/22 Lisinopril (Lisinopril) 40 Mg Tablet, 40 MG PO DAILY, TAB 07/26/22 Amlodipine Besylate (Amlodipine Besylate) 5 Mg Tablet, 5 MG PO BID, TAB 07/26/22 Past Medical History Past Medical History: Diabetes-Type II, Hypertension, UTI, Other Medical History Other: POOR HISTORIAN Past Surgical History: Cholecystectomy, Other, Surgical History Other: PO[employer] HISTORIANS Family History Family History: CAD, DM, HTN Social History Social History: Negative, Lives with family Female( History) History: Not Applicable ROS Dictation Constitutional: Negative for fever,chills, and weight loss Eyes: Negative for injury, pain,redness, and discharge ENT: Negative for injury,pain or swelling Cardiovascular: Negative for chest pain, palpitations, and edema Respiratory: Negative for shortness of breath, cough, and wheezing, Abdomen/GI: Positive for abdominal pain Negative for nausea, vomiting, dariel rrhea, and constipation Back: Negative for injury and pain : Negative for painful urination, bleeding or discharge MS/Extremity: Negative for injury and deformity Skin: Negative for rash, and discoloration Neuro: Negative for headache, weakness, numbness, tingling, and seizure Psych: Negative for suicide ideation, homicidal ideation, and hallucinations Physical Exam Physical Exam Dictation General: awake, alert, no acute distress Head/Face: Normocephalic, atraumatic Eyes: PERRL, EOMI, normal conjunctiva ENT: oral cavity clear, oral mucosa moist Neck: Supple, normal range of motion Cardiovascular: RRR, normal S1/S2 Respiratory: CTAB, no respiratory distress, no rales or wheezes Abdomen: Soft, non-tender, non-distended, normal bowel sounds, no guarding or rebound. Skin: Warm, dry, normal turgor, no rash MS/Extremity: Pulses equal, no cyanosis, neurovascular intact, FROM Neuro: COAx4, GCS 15, no neurological deficits, at baseline Results Laboratory and Microbiology Lab and Micro Result Laboratory Tests Test 12/26/24 21:15 12/26/24 22:35 White Blood Count 5.0 K/uL (4.8-10.8) Red Blood Count 3.68 MIL/uL (4.00-5.50) L Hemoglobin 11.2 g/dL (12.0-16.0) L Hematocrit 33.5 % (36-48) L Mean Corpuscular Volume 91.0 fL (79-99) Mean Corpuscular Hemoglobin 30.4 pg (27.0-33.0) Mean Corpuscular Hemoglobin Concent 33.4 g/dL (32.0-36.0) Red Cell Distribution Width 12.7 % (11.0-15.5) Platelet Count 168 K/uL (130-400) Mean Platelet Volume 11.4 fL (7.5-10.5) H Immature Granulocyte % (Auto) 0.2 % (0-1) Neutrophils (%) (Auto) 51.1 % (40.0-77.0) Lymphocytes (%) (Auto) 33.4 % (21.0-51.0) Monocytes (%) (Auto) 11.7 % (3.0-13.0) Eosinophils (%) (Auto) 2.8 % (0.0-8.0) Basophils (%) (Auto) 0.8 % (0.0-5.0) Neutrophils # (Auto) 2.6 K/uL (1.8-7.7) Lymphocytes # (Auto) 1.7 K/uL (1.0-4.8) Monocytes # (Auto) 0.6 K/uL (0.1-1.0) Eosinophils # (Auto) 0.14 K/uL (0.00-0.70) Basophils # (Auto) 0.04 K/uL (0.00-0.20) Absolute Immature Granulocyte (auto 0.01 K/uL (0-1) Nucleated Red Blood Cells 0.0 % (0.0-0.19) Prothrombin Time 11.0 SEC (9.6-11.6) Prothromb Time International Ratio 1.04 (0.85-1.15) Activated Partial Thromboplast Time 24.5 SEC (26.3-35.5) L Sodium Level 138 mmol/L (136-145) Potassium Level 4.3 mmol/L (3.5-5.1) Chloride Level 106 mmol/L (101-111) Carbon Dioxide Level 29 mmol/L (21-32) Blood Urea Nitrogen 21 mg/dL (7-18) H Creatinine 0.8 mg/dL (0.5-1.0) Glomerular Filtration Rate Calc 71 mL/min (>90) Random Glucose 152 mg/dL (70-105) H Total Calcium 9.8 mg/dL (8.5-10.1) Total Bilirubin 0.3 mg/dL (0.2-1.0) Direct Bilirubin 0.1 mg/dL (0.0-0.3) Aspartate Amino Transf (AST/SGOT) 20 U/L (10-37) Alanine Aminotransferase (ALT/SGPT) 16 U/L (12-78) Alkaline Phosphatase 98 U/L (50-136) Troponin I High Sensitivity 17 ng/L (4-50) Total Protein 7.1 g/dL (6.0-8.3) Albumin 3.3 g/dL (3.5-5.0) L Lipase 31 U/L (16-77) Urine Color LIGHT-YELLOW (YELLOW) Urine Appearance CLEAR (CLEAR) Urine pH 5.5 (5.0-8.0) Urine Specific [place] 1.023 (1.001-1.031) Urine Protein NEGATIVE mg/dL (NEGATIVE) Urine Glucose (UA) NEGATIVE mg/dL (NEGATIVE) Urine Ketones NEGATIVE mg/dL (NEGATIVE) Urine Occult Blood NEGATIVE (NEGATIVE) Urine Nitrate 2+ (NEGATIVE) H Urine Bilirubin NEGATIVE mg/dL (NEGATIVE) Urine Urobilinogen 0.2 mg/dL (0.2-1.0) Urine Leukocyte Esterase 500 Alberto/uL (NEGATIVE) H Urine RBC 2-5 /HPF (0-1) H Urine WBC 26-50 /HPF (0-1) H Urine Bacteria Few /HPF (None Seen) Labs Reviewed?: Yes EKG/XRAY/US/CT/MRI EKG Comment Date: 12/26/24 Time: 20:50 Rate: 78 EKG interpretation: Sinus rhythm, old inferior infarct, right bundle branch block, no STEMI Reviewed by ED Attending CT Scan Comment REASON: RUQ & RLQ abdominal pain ORDERING PHYSICIAN: FARRUKH TONG PROCEDURE: ABD PEL WO - CT ABDOMEN/PELVIS W/O CONTRAST CT ABDOMEN/PELVIS W/O CONTRAST HISTORY: Abdominal pain COMPARISON: 11/03/2024 TECHNIQUE: Multiple sequential axial images of the abdomen and pelvis were obtained from the dome of the diaphragm through symphysis pubis. Patient was not given contrast through intravenous route. Oral contrast was not given. FINDINGS: No pleural effusion is seen bilaterally. Mild interstitial fibrotic changes are seen. There is no evidence of parenchymal disease or pulmonary nodule of the visualized lower lungs. Coronary arterial calcifications are seen. Degenerative changes of the thoracolumbar spine are present. The heart is not enlarged. The liver, spleen, adrenal glands and pancreas are unremarkable. There is no evidence of hydronephrosis bilaterally. No evidence of renal stone is seen. Fecal material is seen in the colon. There are normal size retroperitoneal and mesenteric lymph nodes. No ascites is seen. Atherosclerotic changes are present. No CT evidence of acute appendicitis is seen. There is diverticulosis. Uterus is prominent may be related to fibroid uterus. Pelvic sidewalls are symmetric bilaterally. Bladder is well distended without wall thickening. IMPRESSION: 1. Diverticulosis. Fecal material in the colon. Mild interstitial fibrosis. CT was performed with one or more following dose reduction techniques: automated exposure control, adjustment of the mA and kv according to patient's size, or use of a iterative reconstruction technique. DICTATED BY: JAN NELSON MD DATE: 12/26/242138 [facility] MDM: Differential diagnosis: Urinary tract infection, cholecystitis, nephrolithiasis, pyelonephritis Rationale: 89 y/o female presents to the ED due to abdominal pain. Per family members unknown exact time of pain initiating. Patient was seen here few weeks ago due to similar complaint. Denies any nausea, vomiting, diarrhea, fevers, dysuria, hematuria or further associated symptoms. PMHx DM, HTN Per physical examination patient is in no acute distress, abdomen is soft nontender. Labs obtained indicate mild anemia with hemoglobin of 11.2, no elevated WBC, hepatic function within normal limits, UA indicates urinary tract infection. CT abdomen and pelvis indicates diverticulosis, fecal material in the colon, otherwise no acute findings. Rocephin administered in the ED. Family member was educated on findings, and diagnosis. Admission was discussed with family member who stated she would prefer to take patient home with antibiotics. Patient was prescribed antibiotics for outpatient treatment. Advised to follow up with PCP. Return to the emergency department if any worsening symptoms. Family member verbalized understanding. Patient stable for discharge. There are no social concerns with this patient. I independently interpreted the test that were performed, results were reviewed by me and considered findings on radiology if ordered. Medical management and examination interpretation discussions were had by me with other qualified healthcare professionals as indicated for the patient's care. ED Course Orders Procedure Category Date Status Time Cbc With Differential LAB 12/26/24 Complete 20:25 Basic Metabolic Panel LAB 12/26/24 Complete 20:25 Hepatic Function Panel LAB 12/26/24 Complete 20:25 Lipase LAB 3/6/25 Complete 20:25 Urinalysis LAB 12/26/24 Complete W/Microscopic 20:25 Pt And Ptt LAB 12/26/24 Complete 20:25 Troponin I High LAB 12/26/24 Complete Sensitivity 20:26 12 Lead Ekg Tracing- EKG 12/26/24 Logged Technical 20:26 Ct Abdomen/Pelvis W/O CT 12/26/24 Resulted Contrast 20:25 Culture Urine SONNY 12/26/24 In Process 22:51 Ceftriaxone 1g Vial PHA 12/26/24 Complete (Rocephine 1g Inj) 23:30 Current Medications Medications (Trade) Dose Ordered Sig/[place] Route PRN Reason Start Time Stop Time Status Last Admin Dose Admin Ceftriaxone Sodium (ROCEphine 1G INJ) 1 gm ONCE ONCE IVPB 12/26/24 23:30 12/26/24 23:31 DC Vital Signs Date Time Temp Pulse Resp B/P (MAP) Pulse Ox O2 Delivery O2 Flow Rate FiO2 12/26/24 20:17 96.3 68 16 148/59 98 Room Air DX & DISP Disposition: Discharge Departure Impression: Primary Impression: UTI (urinary tract infection) Condition: Stable Scripts Nitrofurantoin Macrocrystal (Nitrofurantoin) 100 Mg Capsule 1 CAP PO BID for 7 Days, #14 CAP 0 Refills Prov: FARRUKH TONG 12/26/24 Additional Instructions: Discharge home. Rest. Follow up with primary care in 24 hours. Return to the ER for any acute changes or worsening symptoms. If any medications were prescribed take as directed. Okay to continue home medications unless otherwise discussed during your visit in the emergency room today. Patient was also advised to follow-up with primary care physician in 1 to 2 days for continued monitoring. Referrals: GRACY FLORIAN PA-C (PCP) I performed the substantive portion of the visit. I have reviewed and person ally made and approve the management plan that is documented in the notes by myself or the ANTON. I acknowledge full responsibility for the patient's management plan. FARRUKH TONG Dec 26, 2024 23:17
[2024-12-26] MEDS: cefTRIAXone 1G VIAL IVPB ONE (23:47)
[2024-12-27 00:01] VITALS: BP 142/68; PULSE 69; RESP 18; TEMP 96.3; O2SAT 96
--- NOTE | 2024-12-27 06:25 | EKG ---
[facility] Test Date: 2024-12-26 Test Time: 20:50:19 Pat Name: BISHNU ARIZMENDI Department: ED Room: Gender: F [employer]: [id number] Requested By: FARRUKH TONG Order Number: [id number] Reading MD: Jamin Workman Measurements Intervals [place] Rate: 78 P: -39 [place]: 159 QRS: -40 QRSD: 132 T: 23 QT: 444 QTc: 464 Interpretive Statements Sinus rhythm Multiform ventricular premature complexes Right bundle branch block Inferior infarct, old Compared to ECG 12/01/2024 02:24:37 Ventricular premature complex(es) now present Myocardial infarct finding now present Electronically Signed On 12-27-2024 14:48:39 TICKET WRITER by Jamin Workman Please click the below link to view image of tracing.
--- NOTE | 2024-12-27 12:25 | NUR ---
[facility] CALLED TO CLARIFY ORDER AND PER YOLANDE ESCALANTE, THEIR ALTERNATIVE WAS OK'D.
== END 2024-12-27 00:02 | disposition home or self-care (01) ==
LOC: EDH 20:16
DX: N39.0 Urinary tract infection, site not specified (principal); E11.9 Type 2 diabetes mellitus without complications; I10 Essential (primary) hypertension; Z79.899 Other long term (current) drug therapy; Z90.49 Acquired absence of other specified parts of digestive tract
CPT/HCPCS: 99285; 74176; 96374; 80076; 84484; 80048; 83690; 85025; 85610; 85730; 87086 ×2; 87186; 81001; 36415; 93005; J0696

== ENCOUNTER 2025-01-08 02:18 | Emergency (ER) | payer SELFPAY ==
[~2025-01-08] VITALS: Ht 157.5 cm; Wt 59.0 kg
[~2025-01-08 02:18] MED LIST changes: +NITR100C PO
[2025-01-08] MEDS ORDERED: SENN-316 PO (02:50)
--- NOTE | 2025-01-08 02:50 | ERN ---
ED Note History of Present Illness Stated Complaint: ABD PAIN Chief Complaint: Abdominal Pain Time Seen by MD: 02:36 Dictation: This is an 89-year-old female who has been to the ER multiple times for some complaint or the other was recently seen on 12/26/2024 for abdominal pain and w orkup revealed a UTI. She was given antibiotics and discharged to home she was brought back by patient's son that she was complaining of abdominal pain. Apparently patient was fighting with the son earlier and she was extremely upset annoyed that she had to be in the ER and wanted to leave. The son stated that it was mostly on the right lower side. No nausea vomitings diarrhea hematemesis or melena no fever chills or rigors. Patient at baseline is bed bound and son stated that she does not drink enough water. They have been trying to give her Colace . Temperature 98.5 pulse 89 respirations 20 blood pressure 154/64 pulse oximetry 100% on room air Chronic medical problems include Diabetes mellitus type 2, hypertension, recurrent UTIs and a history of cholecystectomy Allergies: Coded Allergies: No Known Drug Allergies (Unverified Allergy, Unknown, 07/25/22) Home Meds Active Scripts Sennosides/Docusate Sodium (Senna Plus 8.6-50 mg Tablet) 8.6 Mg-50 Mg Tablet, 1 EACH PO bed time for abdominal discomfort for 14 Days, #28 TAB Prov:KATELYN MOSQUERA MD 01/08/25 Nitrofurantoin Macrocrystal (Nitrofurantoin) 100 Mg Capsule, 1 CAP PO BID for 7 Days, #14 CAP 0 Refills Prov:FARRUKH TONG 12/26/24 Nitrofurantoin Monohyd/M-Cryst (Macrobid 100 mg Capsule) 100 Mg Capsule, 1 CAP PO BID for 7 Days, #14 CAP 0 Refills Prov:KATELYN MOSQUERA MD 12/01/24 Ibuprofen (Ibuprofen) 600 Mg Tablet, 600 MG PO Q6H PRN for PAIN, #30 TAB Prov:ALICE FRANCO NP 11/03/24 Nitrofurantoin/Nitrofuran Mac (Macrobid) 100 Mg Cap, 1 CAP PO BID for 7 Days, #14 CAP 0 Refills Prov:ALICE FRANCO NP 11/03/24 Levofloxacin (Levofloxacin) 500 Mg Tablet, 500 MG PO DAILY for 10 Days, #10 TAB Prov:GIDEON ARIZMENDI MD 09/20/24 Phenazopyridine HCl (Pyridium) 100 Mg Tab, 100 MG PO DAILY for 3 Days, #3 TAB 0 Refills Prov:NABEEL DAY MD 08/13/24 Cephalexin Monohydrate (Keflex) 500 Mg Cap, 500 MG PO BID for 5 Days, #10 CAP Prov:ELVA PRITCHETT MD 05/11/24 Lactulose (Lactulose) 20 Gram/30 Ml Solution, 20 GM PO BID, #180 ML Prov:JOSE ANTONIO CERVANTES 04/21/24 Ciprofloxacin HCl (Ciprofloxacin HCl) 500 Mg Tablet, 500 MG PO BID for 10 Days, #20 TAB Prov:JOSE ANTONIO CERVANTES 04/21/24 Sennosides (Senna) 8.6 Mg Tablet, 8.6 MG PO DAILYDINNER, #30 TAB Prov:KATELYN MOSQUERA MD 03/29/24 Ciprofloxacin HCl (Cipro) 500 Mg Tablet, 1 TAB PO BID for 10 Days, #20 TAB 0 Refills Prov:KATELYN MOSQUERA MD 03/29/24 Nitrofurantoin Monohyd/M-Cryst (Macrobid 100 mg Capsule) 100 Mg Capsule, 100 MG PO BIDAC for uti for 7 Days, #14 CAP 0 Refills Prov:GIDEON ARIZMENDI MD 03/16/24 Polyethylene Glycol 3350 (Miralax) 17 Gram Powd.pack, 17 GM PO DAILY, #30 0 Refills Prov:NOEL ALCARAZ MD 01/24/24 Risperidone (Risperdal 1Mg Tab) 1 Mg Tablet, 1 MG PO DAILY19 for 30 Days, #30 TAB TAKE IT AT 9:00 PM Prov:MAURICE VASQUEZ MD 11/06/23 Risperidone (Risperdal 1Mg Tab) 1 Mg Tablet, 0.5 MG PO AM for 30 Days, #30 TAB 1 Refill TAKE IT IN THE MORNING Prov:MAURICE VASQUEZ MD 11/06/23 Cephalexin Monohydrate (Keflex) 500 Mg Cap, 500 MG PO Q12H, #14 CAP 0 Refills Prov:MERRILL JEAN AGPCNP 08/09/23 Cholecalciferol (Vitamin D3) (Vitamin D3) 25 Mcg (1000 Unit) Tablet, 25 MCG PO DAILY, #30 TAB 0 Refills Prov:MERRILL JEAN AGPCMAYCOL 08/09/23 Lactulose (Lactulose) 20 Gram/30 Ml Solution, 20 GM PO BID, #180 ML Prov:[facility]RILL [facility] 08/09/23 Reported Medications [Vitamin D3] No Conflict Check 11/02/23 Cetirizine HCl (Cetirizine HCl) 10 Mg Tablet, 10 MG PO AD for ALLERGIES, TAB 08/08/23 Furosemide (Lasix 20Mg Tab) 20 Mg Tablet, 20 MG PO AM, TAB 07/27/22 Lisinopril (Lisinopril) 40 Mg Tablet, 40 MG PO DAILY, TAB 07/26/22 Amlodipine Besylate (Amlodipine Besylate) 5 Mg Tablet, 5 MG PO BID, TAB 07/26/22 Past Medical History Past Medical History: Diabetes-Type II, Diverticulosis, Hypertension, UTI, Other Additional Past Medical Hx: POOR HISTORIAN Surgical History: Cholecystectomy, Other, Surgical History Other: POOR HISTORIANS Family History: CAD, DM, HTN Social History: Negative, Lives with family History: Not Applicable RN Note Reviewed/Agreed w/PFSH: Yes Review of System Dictation Constitutional: Negative for fever,chills, and weight loss Eyes: Negative for injury, pain,redness, and discharge ENT: Negative for injury,pain or swelling Cardiovascular: Negative for chest pain, palpitations, and edema Respiratory: Negative for shortness of breath, cough, and wheezing, Abdomen/GI: Positive for chronic abdominal pain, no nausea, vomiting, diarrhea, and constipation Back: Negative for injury and pain : Negative for injury, bleeding and discharge MS/Extremity: Negative for injury and deformity Skin: Negative for rash, and discoloration Neuro: Negative for headache, weakness, numbness, tingling, and seizure Psych: Negative for suicide ideation, homicidal ideation, and hallucinations Initial Vital Sign VS Vital Signs Date Time Temp Pulse Resp B/P (MAP) Pulse Ox O2 Delivery O2 Flow Rate FiO2 01/08/25 02:20 98.4 89 20 154/64 100 Room Air Physical Exam Dictation General: awake, alert, NAD elderly lady uncooperative Head/Face: Normocephalic, atraumatic Eyes: PERRL, EOMI, vision at baseline ENT: oral cavity clear, TMs clear, no signs of infection Neck: Trachea midline, supple, no nuchal rigidity Cardiovascular: RRR, normal S1/S2, No MRGs, no JVD Respiratory: CTAB, no respiratory distress, No rales or wheezes Abdomen: Soft, minimal tenderness on the right side lower quadrant area non- distended, normal bowel sounds, no guarding or rebound. Skin: Warm, dry, normal turgor, no rash MS/Extremity: Pulses equal, no cyanosis, neurovascular intact, FROM Neuro: COAx4, GCS 15, strength 5/5, CN 2-12 intact, normal cerebellar exam, nor mal gait, Psych: Normal behavior, mood, and affect normal Extremities-trace edema without any palpable cords, Homans sign is negative Results (Laboratory/Radiology) Labs Reviewed?: Yes CT Scan Comment: REASON: RUQ & RLQ abdominal pain ORDERING PHYSICIAN: FARRUKH TONG PROCEDURE: ABD PEL WO - CT ABDOMEN/PELVIS W/O CONTRAST CT ABDOMEN/PELVIS W/O CONTRAST HISTORY: Abdominal pain COMPARISON: 11/03/2024 TECHNIQUE: Multiple sequential axial images of the abdomen and pelvis were obtained from the dome of the diaphragm through symphysis pubis. Patient was not given contrast through intravenous route. Oral contrast was not given. FINDINGS: No pleural effusion is seen bilaterally. Mild interstitial fibrotic changes are seen. There is no evidence of parenchymal disease or pulmonary nodule of the visualized lower lungs. Coronary arterial calcifications are seen. Degenerative changes of the thoracolumbar spine are present. The heart is not enlarged. The liver, spleen, adrenal glands and pancreas are unremarkable. There is no evidence of hydronephrosis bilaterally. No evidence of renal stone is seen. Fecal material is seen in the colon. There are normal size retroperitoneal and mesenteric lymph nodes. No ascites is seen. Atherosclerotic changes are present. No CT evidence of acute appendicitis is seen. There is diverticulosis. Uterus is prominent may be related to fibroid uterus. Pelvic sidewalls are symmetric bilaterally. Bladder is well distended without wall thickening. IMPRESSION: 1. Diverticulosis. Fecal material in the colon. Mild interstitial fibrosis. CT was performed with one or more following dose reduction techniques: automated exposure control, adjustment of the mA and kv according to patient's size, or use of a iterative reconstruction technique. DICTATED BY: JAN NELSON MD DATE: 12/26/242138 ELECTRONICALLY SIGNED BY: JAN NELSON MD DATE: 12/26/242145 ED Course ED Course Orders Procedure Category Date Status Time Ketorolac PHA 01/08/25 Complete Tromethamine 15mg/Ml 03:00 Dicyclomine Hcl PHA 01/08/25 Complete (Bentyl 10mg/5ml 03:00 Current Medications Medications (Trade) Dose Ordered Sig/Herminia Route PRN Reason Start Time Stop Time Status Last Admin Dose Admin Dicyclomine HCl (Bentyl 10mg/5ml Syrup) 10 mg ONCE ONCE PO 01/08/25 03:00 01/08/25 03:01 DC 01/08/25 03:48 Ketorolac Tromethamine (toRADol) 15 mg ONCE ONCE IM 01/08/25 03:00 01/08/25 03:01 DC 01/08/25 03:58 Vital Signs Date Time Temp Pulse Resp B/P (MAP) Pulse Ox O2 Delivery O2 Flow Rate FiO2 01/08/25 02:20 98.4 89 20 154/64 100 Room Air We will administer medications according to the patient's complaint. Once the results are available, will review and personally interpreted the labs to rule out any acute life-threatening emergency the trach require immediate intervention and treatment. I will then re-evaluate the patient after treatment and diagnostic exams have return to determine whether the patient requires any further testing, can safely be discharged home or need further admission to hospital for additional treatment and evaluation. Patient's son understood that the patient was extremely annoyed and upset. A trial of symptomatic management and I explained to him that I have reviewed the CT scan of the abdomen and pelvis that was done on the 12/26/2024 which showed diverticulosis and constipation. I will discharge her with a combination of senna plus Colace and stressed to him that it is very important to keep the bowel regimen regular to avoid diverticulitis or perforation. Medical Decision Making MDM MDM: Differential diagnosis: Constipation, diverticulosis, diverticulitis, UTI Rationale: Tests considered and ordered secondary to shared decision making incl ude: Previous outside records reviewed: Old ER visits. Risk of complication and/or morbidity or mortality of patient management: None Medications-Per medication reconciliation Need for hospitalization: Patient does not meet criteria for hospitalization. Need for emergency major/minor surgery: No There are no social concerns with this patient. Prescription drug management Prescriptions will include symptomatic care Patient's prior external medical records from other ER visits were reviewed by me as indicated. Prior testing and results from previous visits were reviewed. Prior tests were taken into account with medical decision making and resource utilization, independent historian/historians were used to obtain complete medical history. I independently interpreted the test that were performed, results were reviewed by me and considered findings on radiology if ordered. Medical management and examination interpretation discussions were had by me with other qualified healthcare professionals as indicated for the patient's care. Problem List Problem List: (1) Diverticulosis (2) Abdominal pain, diffuse (3) Constipation (4) History of type 2 diabetes mellitus (5) History of essential hypertension DX & DISP Disposition: Discharge Departure Impression: Primary Impression: Diverticulosis Additional Impressions: Abdominal pain, diffuse, Constipation, History of type 2 diabetes mellitus, History of essential hypertension Condition: Stable Scripts Sennosides/Docusate Sodium (Senna Plus 8.6-50 mg Tablet) 8.6 Mg-50 Mg Tablet 1 EACH PO bed time for abdominal discomfort for 14 Days, #28 TAB Prov: KATLEYN MOSQUERA MD 01/08/25 Additional Instructions: Patient and the caregiver have been informed of all the diagnostic tests and the imaging conducted during the today's visit to the emergency room and has verbalized understanding of the results I have personally reviewed and interpreted all diagnostic exams performed here in the ER today as well as the vital signs documented by the nursing staff. The patient is now being discharged to home and should follow up with the primary care physician or the specialist as directed by the ER staff. Follow-up with primary care provider in 1 to 2 days. Take medications as directed here in the emergency room. Okay to continue home medications unless otherwise discussed during your visit in the emergency room today. Return to your nearest emergency room if symptoms worsen or if there is no improvement. Call 911 if you need immediate assistance. Take Tylenol or Motrin [id number] as needed and if no contraindications are present. Increase oral hydration. A wound culture or urine culture was ordered here in the emergency room department please follow-up with primary care provider and advise them to get repeat ports from our facility. If you had any Carlos wrap/splints that were applied here, please do not remove them until you see your primary care or specialty. Referrals: GRACY FLORIAN PA-C (PCP) KATELYN MOSQUERA MD Jan 08, 2025 02:50
[2025-01-08] MEDS: DICYCLOMINE HCL 10 MG/5 ML ML PO ONE (03:48)
[2025-01-08] MEDS: ketOROlac 15MG/ML VIAL (15MG/ML) IM ONE (03:58)
[2025-01-08 04:38] VITALS: BP 140/74; PULSE 60; RESP 18; TEMP 98.2; O2SAT 98
== END 2025-01-08 04:41 | disposition home or self-care (01) ==
LOC: EDH 02:18
DX: K57.90 Diverticulosis of intestine, part unspecified, without perforation or abscess without bleeding (principal); K59.00 Constipation, unspecified; E11.9 Type 2 diabetes mellitus without complications; I10 Essential (primary) hypertension; Z79.899 Other long term (current) drug therapy; Z87.440 Personal history of urinary (tract) infections; Z90.49 Acquired absence of other specified parts of digestive tract; Z98.890 Other specified postprocedural states
CPT/HCPCS: 99283; 96372; J1885

== ENCOUNTER 2025-01-31 00:08 | Emergency (ER) | payer SELFPAY ==
[~2025-01-31] VITALS: Ht 160 cm; Wt 64.4 kg
[~2025-01-31 00:08] MED LIST changes: +SENN-316 PO
--- NOTE | 2025-01-31 00:22 | ERN ---
ED Note History of Present Illness Stated Complaint: C/O ABD PAIN TO RIGHT SIDE WITH NAUSEA Chief Complaint: Abdominal Pain Time Seen by MD: 00:10 Time Seen by Midlevel: 00:10 Dictation: The patient is an 89-year-old female with a history of diabetes, diverticulitis, cholecystectomy, hypertension who presents to the emergency department with complaints of right upper abdominal pain associated with nausea onset an hour prior to arrival. Patient denies any fevers, diarrhea or constipation. Allergies: Coded Allergies: No Known Drug Allergies (Unverified Allergy, Unknown, 07/25/22) Home Meds Active Scripts Sennosides/Docusate Sodium (Senna Plus 8.6-50 mg Tablet) 8.6 Mg-50 Mg Tablet, 1 EACH PO bed time for abdominal discomfort for 14 Days, #28 TAB Prov:KATELYN MOSQUERA MD 01/08/25 Nitrofurantoin Macrocrystal (Nitrofurantoin) 100 Mg Capsule, 1 CAP PO BID for 7 Days, #14 CAP 0 Refills Prov:FARRUKH TONG 12/26/24 Nitrofurantoin Monohyd/M-Cryst (Macrobid 100 mg Capsule) 100 Mg Capsule, 1 CAP PO BID for 7 Days, #14 CAP 0 Refills Prov:KATELYN MOSQUERA MD 12/01/24 Ibuprofen (Ibuprofen) 600 Mg Tablet, 600 MG PO Q6H PRN for PAIN, #30 TAB Prov:ALICE FRANCO NP 11/03/24 Nitrofurantoin/Nitrofuran Mac (Macrobid) 100 Mg Cap, 1 CAP PO BID for 7 Days, #1 4 CAP 0 Refills Prov:ALICE FRANCO NP 11/03/24 Levofloxacin (Levofloxacin) 500 Mg Tablet, 500 MG PO DAILY for 10 Days, #10 TAB Prov:GIDEON ARIZMENDI MD 09/20/24 Phenazopyridine HCl (Pyridium) 100 Mg Tab, 100 MG PO DAILY for 3 Days, #3 TAB 0 Refills Prov:NABEEL DAY MD 08/13/24 Cephalexin Monohydrate (Keflex) 500 Mg Cap, 500 MG PO BID for 5 Days, #10 CAP Prov:ELVA PRITCHETT MD 05/11/24 Lactulose (Lactulose) 20 Gram/30 Ml Solution, 20 GM PO BID, #180 ML Prov:JOSE ANTONIO CERVANTES 04/21/24 Ciprofloxacin HCl (Ciprofloxacin HCl) 500 Mg Tablet, 500 MG PO BID for 10 Days, #20 TAB Prov:JOSE ANTONIO CERVANTES 04/21/24 Sennosides (Senna) 8.6 Mg Tablet, 8.6 MG PO DAILYDINNER, #30 TAB Prov:KATELYN MOSQUERA MD 03/29/24 Ciprofloxacin HCl (Cipro) 500 Mg Tablet, 1 TAB PO BID for 10 Days, #20 TAB 0 Refills Prov:KATELYN MOSQUERA MD 03/29/24 Nitrofurantoin Monohyd/M-Cryst (Macrobid 100 mg Capsule) 100 Mg Capsule, 100 MG PO BIDAC for uti for 7 Days, #14 CAP 0 Refills Prov:GIDEON ARIZMENDI MD 03/16/24 Polyethylene Glycol 3350 (Miralax) 17 Gram Powd.pack, 17 GM PO DAILY, #30 0 Refills Prov:NOEL ALCARAZ MD 01/24/24 Risperidone (Risperdal 1Mg Tab) 1 Mg Tablet, 1 MG PO DAILY19 for 30 Days, #30 TAB TAKE IT AT 9:00 PM Prov:MAURICE VASQUEZ MD 11/06/23 Risperidone (Risperdal 1Mg Tab) 1 Mg Tablet, 0.5 MG PO AM for 30 Days, #30 TAB 1 Refill TAKE IT IN THE MORNING Prov:MAURICE VASQUEZ MD 11/06/23 Cephalexin Monohydrate (Keflex) 500 Mg Cap, 500 MG PO Q12H, #14 CAP 0 Refills Prov:MERRILL JEAN 08/09/23 Cholecalciferol (Vitamin D3) (Vitamin D3) 25 Mcg (1000 Unit) Tablet, 25 MCG PO DAILY, #30 TAB 0 Refills Prov:MERRILL JEAN 08/09/23 Lactulose (Lactulose) 20 Gram/30 Ml Solution, 20 GM PO BID, #180 ML Prov:MERRILL JEAN 08/09/23 Reported Medications [Vitamin D3] No Conflict Check 11/02/23 Cetirizine HCl (Cetirizine HCl) 10 Mg Tablet, 10 MG PO AD for ALLERGIES, TAB 08/08/23 Furosemide (Lasix 20Mg Tab) 20 Mg Tablet, 20 MG PO AM, TAB 07/27/22 Lisinopril (Lisinopril) 40 Mg Tablet, 40 MG PO DAILY, TAB 07/26/22 Amlodipine Besylate (Amlodipine Besylate) 5 Mg Tablet, 5 MG PO BID, TAB 07/26/22 Past Medical History Past Medical History: Diabetes-Type II, Hypertension Additional Past Medical Hx: POOR HISTORIAN Surgical History: Cholecystectomy, Surgical History Other: POOR HISTORIANS Family History: CAD, DM, HTN Social History: Negative, Lives with family History: Not Applicable RN Note Reviewed/Agreed w/PFSH: Yes Review of System Dictation Constitutional: Negative for fever,chills, and weight loss Eyes: Negative for injury, pain,redness, and discharge ENT: Negative for injury,pain or swelling Cardiovascular: Negative for chest pain, palpitations, and edema Respiratory: Negative for shortness of breath, cough, and wheezing, Abdomen/GI: Negative for vomiting, diarrhea, and constipation positive for abdominal pain, nausea Back: Negative for injury and pain : Negative for injury, bleeding and discharge MS/Extremity: Negative for injury and deformity Skin: Negative for rash, and discoloration Neuro: Negative for headache, weakness, numbness, tingling, and seizure Psych: Negative for suicide ideation, homicidal ideation, and hallucinations Initial Vital Sign VS Vital Signs Date Time Temp Pulse Resp B/P (MAP) Pulse Ox O2 Delivery O2 Flow Rate FiO2 01/31/25 00:10 97.5 69 20 165/73 99 Room Air 01/31/25 00:30 0 21 Physical Exam Dictation Vital Signs reviewed General Appearance: Alert, oriented x 2, no acute distress, well developed, nourished. Head and Face: non-traumatic. Eyes: PERRL, pink conjunctivas, eyelid no trauma, anterior chamber with arcus s enilis. Ears: Pinnas intact and no signs of trauma or erythema ear canals clear and no discharge TM no erythema Nose: No discharge, no bleeding. Oropharynx: Mouth normal, tongue pink. pharynx clear,no erythema, tonsils no exudates, no abscesses noted, mucous membrane moist Neck: Supple, non-tender, no thyromegaly, no masses, no JVD, no bruits Breast:Deferred Chest:No tenderness, no crepitus, no paradoxical movement, no retractions Lungs:Clear, well-ventilated, symmetric, no rales, no wheezing, no rhonchi, no stridor, good breath sounds bilaterally Heart: Regular rate, regular rhythm, no murmur, no gallops Vascular: no peripheral edema, Abdomen: Soft, positive bowel sounds, nondistended, no guarding, nontender, no rebound, no masses no hepatomegaly, no splenomegaly, no Dennis's sign, no hernias. Rectal: Deferred Genital: Deferred Neurological: Normal speech, motor function intact, sensory function intact Musculoskeletal: Neck nontender, full range of motion, back nontender, full range of motion, Extremities: nontender, full range of motion Skin: Color pink, dry, no turgor, no rash, no lacerations, no abrasions, no contusions. Lymphatic: Deferred Results (Laboratory/Radiology) Laboratory/Radiology Laboratory Tests Test 01/31/25 00:31 01/31/25 00:43 White Blood Count 6.5 K/uL (4.8-10.8) Red Blood Count 3.55 MIL/uL (4.00-5.50) L Hemoglobin 10.9 g/dL (12.0-16.0) L Hematocrit 32.9 % (36-48) L Mean Corpuscular Volume 92.7 fL (79-99) Mean Corpuscular Hemoglobin 30.7 pg (27.0-33.0) Mean Corpuscular Hemoglobin Concent 33.1 g/dL (32.0-36.0) Red Cell Distribution Width 13.2 % (11.0-15.5) Platelet Count 170 K/uL (130-400) Mean Platelet Volume 11.6 fL (7.5-10.5) H Immature Granulocyte % (Auto) 0.3 % (0-1) Neutrophils (%) (Auto) 62.1 % (40.0-77.0) Lymphocytes (%) (Auto) 25.2 % (21.0-51.0) Monocytes (%) (Auto) 9.8 % (3.0-13.0) Eosinophils (%) (Auto) 2.0 % (0.0-8.0) Basophils (%) (Auto) 0.6 % (0.0-5.0) Neutrophils # (Auto) 4.0 K/uL (1.8-7.7) Lymphocytes # (Auto) 1.6 K/uL (1.0-4.8) Monocytes # (Auto) 0.6 K/uL (0.1-1.0) Eosinophils # (Auto) 0.13 K/uL (0.00-0.70) Basophils # (Auto) 0.04 K/uL (0.00-0.20) Absolute Immature Granulocyte (auto 0.02 K/uL (0-1) Nucleated Red Blood Cells 0.0 % (0.0-0.19) Sodium Level 139 mmol/L (136-145) Potassium Level 4.6 mmol/L (3.5-5.1) Chloride Level 106 mmol/L (101-111) Carbon Dioxide Level 26 mmol/L (21-32) Blood Urea Nitrogen 16 mg/dL (7-18) Creatinine 0.8 mg/dL (0.5-1.0) Glomerular Filtration Rate Calc 71 mL/min (>90) Random Glucose 124 mg/dL (70-105) H Total Calcium 9.8 mg/dL (8.5-10.1) Total Bilirubin 0.3 mg/dL (0.2-1.0) Direct Bilirubin 0.1 mg/dL (0.0-0.3) Aspartate Amino Transf (AST/SGOT) 17 U/L (10-37) Alanine Aminotransferase (ALT/SGPT) 17 U/L (12-78) Alkaline Phosphatase 103 U/L (50-136) Total Creatine Kinase 81 U/L (21-232) # Troponin I High Sensitivity 18 ng/L (4-50) Total Protein 6.8 g/dL (6.0-8.3) Albumin 3.3 g/dL (3.5-5.0) L Lipase 30 U/L (16-77) Urine Color LIGHT-YELLOW (YELLOW) Urine Appearance CLEAR (CLEAR) Urine pH 5.0 (5.0-8.0) Urine Specific [place] 1.006 (1.001-1.031) Urine Protein NEGATIVE mg/dL (NEGATIVE) Urine Glucose (UA) NEGATIVE mg/dL (NEGATIVE) Urine Ketones NEGATIVE mg/dL (NEGATIVE) Urine Occult Blood NEGATIVE (NEGATIVE) Urine Nitrate 1+ (NEGATIVE) H Urine Bilirubin NEGATIVE mg/dL (NEGATIVE) Urine Urobilinogen 0.2 mg/dL (0.2-1.0) Urine Leukocyte Esterase NEGATIVE Alberto/uL Urine RBC 0-1 /HPF (0-1) Urine WBC 2-5 /HPF (0-1) H Urine Bacteria FEW /HPF (None Seen) REASON: right upper abd pain ORDERING PHYSICIAN: VANESA PRITCHETT PROCEDURE: ABD PEL WO - CT ABDOMEN/PELVIS W/O CONTRAST CT ABDOMEN/PELVIS W/O CONTRAST HISTORY: Abdominal pain COMPARISON: 12/26/2024 TECHNIQUE: Multiple sequential axial images of the abdomen and pelvis were obtained from the dome of the diaphragm through symphysis pubis. Patient was not given contrast through intravenous route. Oral contrast was not given. FINDINGS: No pleural effusion is seen bilaterally. There are interstitial fibrosis. Left lower lung pulmonary infiltrates are seen. Degenerative changes of the thoracolumbar spine are present. The heart is not enlarged. Liver measures 14 cm. A small hiatal hernia is seen. The liver, spleen, adrenal glands and pancreas are unremarkable. There is no evidence of hydronephrosis bilaterally. No evidence of renal stone is seen. Fecal material is seen in the colon. There are normal size retroperitoneal and mesenteric lymph nodes. No ascites is seen. Atherosclerotic changes are present. Uterus is enlarged suggesting a fibroid uterus. There is diverticulosis. Pelvic sidewalls are symmetric bilaterally. Bladder is well distended without wall thickening. IMPRESSION: 1. Fecal material in the colon. Diverticulosis. No ascites. Labs Reviewed?: Yes EKG: (+) rhythm (Sinus rhythm) EKG Comment: Date:01/31/2025 Time:0050 Ventricular rate:68 TN interval:166 QRS duration:141 QT/QTc:441 EKG interpretation: Sinus rhythm, right bundle-branch block (history of) Reviewed by ED Attending no STEMI ED Course ED Course Orders Procedure Category Date Status Time Cbc With Differential LAB 01/31/25 Complete 00:18 Troponin I High LAB 01/31/25 Complete Sensitivity 00:18 Urinalysis Profile LAB 01/31/25 Complete 00:18 12 Lead Ekg Tracing- EKG 01/31/25 Logged Technical 00:18 Ondansetron 4mg Inj PHA 01/31/25 Complete (Zofran 4mg Inj) 00:30 Pantoprazole 40mg Inj PHA 01/31/25 Complete (Protonix 40mg Inj 00:30 Creatine Kinase, Total LAB 01/31/25 Complete 00:18 Ct Abdomen/Pelvis W/O CT 01/31/25 Resulted Contrast 00:18 Lipase LAB 01/31/25 Complete 00:18 Basic Metabolic Panel LAB 01/31/25 Complete 00:18 Hepatic Function Panel LAB 01/31/25 Complete 00:18 Culture Urine SONNY 01/31/25 In Process 01:02 Current Medications Medications (Trade) Dose Ordered Sig/[place] Route PRN Reason Start Time Stop Time Status Last Admin Dose Admin Ondansetron HCl (zoFRAN 4MG INJ) 4 mg ONCE ONCE IVP 01/31/25 00:30 01/31/25 00:31 DC Pantoprazole Sodium (PROTonix 40MG INJ) 40 mg ONCE ONCE IVP 01/31/25 00:30 01/31/25 00:31 DC Vital Signs Date Time Temp Pulse Resp B/P (MAP) Pulse Ox O2 Delivery O2 Flow Rate FiO2 01/31/25 00:30 97.9 65 20 118/69 99 Room Air* 0 21 01/31/25 00:10 97.5 69 20 165/73 99 Room Air Medical Decision Making MDM The patient is an 89-year-old female with a history of diabetes, diverticulitis, cholecystectomy, hypertension who presents to the emergency department with complaints of right upper abdominal pain associated with nausea onset an hour prior to arrival. Patient denies any fevers, diarrhea or constipation. CBC showed no leukocytosis, mild normocytic anemia, chemistry showed no electrolyte imbalance, GFR of 71, negative troponin, negative lipase, negative liver enzymes, urinalysis positive for nitrites. Patient will be treated with the Rocephin IV and discharged with p.o. antibiotics. CT abdomen and pelvis showed fecal material, small hiatal hernia, no ascites. Patient in no acute distress, nontoxic appearance, stable vital signs. We will be discharged to follow up with PCP. Differential diagnosis: Diverticulitis, constipation, electrolyte imbalance, dehydration, gastroenteritis, gastritis Need for hospitalization: Patient does not meet criteria for hospitalization. There are no social concerns with this patient. DX & DISP Disposition: Discharge Departure Impression: Primary Impression: UTI (urinary tract infection) Additional Impressions: Hiatal hernia, Constipation, Abdominal pain, Diverticulosis Condition: Stable Scripts Cephalexin Monohydrate (Keflex) 500 Mg Cap 500 MG PO BID for 7 Days, #14 CAP Prov: VANESA PRITCHETT WET SANDER 01/31/25 Lactulose (Lactulose) 10 Gram/15 Ml Solution 30 ML PO BID for constipation, #500 ML 0 Refills Prov: VANESA PRITCHETT WET SANDER 01/31/25 Additional Instructions: Please follow up with your primary doctor in 1-2 days. Take medications as prescribed. If symptoms worsen please return to ER. FOLLOW-UP WITH PRIMARY CARE PROVIDER IN 1 TO 2 DAYS. TAKE MEDICATIONS DIRECTED HERE IN THE EMERGENCY ROOM. OKAY TO CONTINUE HOME MEDICATIONS UNLESS OTHERWISE DISCUSSED DURING YOUR VISIT IN THE EMERGENCY ROOM TODAY. RETURN TO YOUR NEAREST EMERGENCY ROOM IF SYMPTOMS WORSEN OR IF THERE IS NO IMPROVEMENT. CALL 911 IF YOU NEED IMMEDIATE ASSISTANCE. TAKE TYLENOL OR MOTRIN [id number] NEEDED AND IF NO CONTRAINDICATIONS ARE PRESENT. INCREASE ORAL HYDRATION. A WOUND CULTURE OR URINE CULTURE WAS ORDERED HERE IN THE EMERGENCY ROOM DEPARTMENT PLEASE FOLLOW-UP WITH PRIMARY CARE PROVIDER AND ADVISE THEM TO GET REPEAT PORTS FROM OUR FACILITY. IF YOU HAD ANY EDWIN WRAP/SPLINTS THAT WERE APPLIED HERE, PLEASE DO NOT REMOVE THEM UNTIL YOU SEE YOUR PRIMARY CARE OR SPECIALTY. Referrals: ANKIT SETHI DO (PCP) I have reviewed the case, and I agree with, Diagnosis and Plan VANESA PRITCHETT WET SANDER Jan 31, 2025 00:22
[2025-01-31 00:49] LABS: BASOPHILS # (AUTO) 0.04 K/uL (0.00-0.20); BASOPHILS % (AUTO) 0.6 % (0.0-5.0); EOSINOPHILS # (AUTO) 0.13 K/uL (0.00-0.70); HEMATOCRIT 32.9 % (36-48); IMMATURE GRANULOCYTE ABSOLUTE 0.02 K/uL (0-1); LYMPHOCYTES # (AUTO) 1.6 K/uL (1.0-4.8); LYMPHOCYTES % (AUTO) 25.2 % (21.0-51.0); MEAN CORPUSCULAR HEMOGLOBIN 30.7 pg (27.0-33.0); MEAN CORPUSCULAR HGB CONC 33.1 g/dL (32.0-36.0); MEAN CORPUSCULAR VOLUME 92.7 fL (79-99); MONOCYTES # (AUTO) 0.6 K/uL (0.1-1.0); MONOCYTES % (AUTO) 9.8 % (3.0-13.0); NEUTROPHILS % (AUTO) 62.1 % (40.0-77.0); PLATELET COUNT (AUTO) 170 K/uL (130-400); RED BLOOD CELL COUNT(AUTO) 3.55 MIL/uL (4.00-5.50); RED CELL DISTRIBUTION WIDTH 13.2 % (11.0-15.5); WHITE BLOOD COUNT (AUTO) 6.5 K/uL (4.8-10.8)
[2025-01-31 01:01] LABS: CREATININE 0.8 mg/dL (0.5-1.0); POTASSIUM 4.6 mmol/L (3.5-5.1)
[2025-01-31 01:02] LABS: ADD UA MICROSCOPIC YES; APPEARANCE,URINE CLEAR (CLEAR); BILIRUBIN,URINE NEGATIVE (NEGATIVE); COLOR,URINE LIGHT-YELLOW (YELLOW); GLUCOSE, URINE (UA) NEGATIVE (NEGATIVE); KETONES,URINE NEGATIVE (NEGATIVE); LEUKOCYTE ESTERASE ,URINE NEGATIVE Leu/uL (NEGATIVE); NITRATE,URINE 1+ (NEGATIVE); OCCULT BLOOD,URINE NEGATIVE (NEGATIVE); PROTEIN,URINE NEGATIVE (NEGATIVE); UROBILINOGEN,URINE 0.2 mg/dL (0.2-1.0)
[2025-01-31 01:06] LABS: BACTERIA,URINE FEW /HPF (None Seen); RBC,URINE 0-1 /HPF (0-1)
[2025-01-31 01:06] LABS: ALBUMIN 3.3 g/dL (3.5-5.0); BILIRUBIN,DIRECT 0.1 mg/dL (0.0-0.3); BILIRUBIN,TOTAL 0.3 mg/dL (0.2-1.0); TOTAL PROTEIN, SERUM 6.8 g/dL (6.0-8.3)
--- NOTE | 2025-01-31 01:14 | HMCIMG ---
CT ABDOMEN/PELVIS W/O CONTRAST HISTORY: Abdominal pain COMPARISON: 12/26/2024 TECHNIQUE: Multiple sequential axial images of the abdomen and pelvis were obtained from the dome of the diaphragm through symphysis pubis. Patient was not given contrast through intravenous route. Oral contrast was not given. FINDINGS: No pleural effusion is seen bilaterally. There are interstitial fibrosis. Left lower lung pulmonary infiltrates are seen. Degenerative changes of the thoracolumbar spine are present. The heart is not enlarged. Liver measures 14 cm. A small hiatal hernia is seen. The liver, spleen, adrenal glands and pancreas are unremarkable. There is no evidence of hydronephrosis bilaterally. No evidence of renal stone is seen. Fecal material is seen in the colon. There are normal size retroperitoneal and mesenteric lymph nodes. No ascites is seen. Atherosclerotic changes are present. Uterus is enlarged suggesting a fibroid uterus. There is diverticulosis. Pelvic sidewalls are symmetric bilaterally. Bladder is well distended without wall thickening. IMPRESSION: 1. Fecal material in the colon. Diverticulosis. No ascites. CT was performed with one or more following dose reduction techniques: automated exposure control, adjustment of the mA and kv according to patient's size, or use of a iterative reconstruction technique.
[2025-01-31] MEDS ORDERED: LACT-441 PO (01:25)
[2025-01-31] MEDS: cefTRIAXone 1G VIAL IVPB ONE (01:43)
[2025-01-31] MEDS: PANTOPrazole 40 MG/VIAL IVP ONE (01:43)
[2025-01-31] MEDS: ondanSETRON 4MG INJ IVP ONE (01:43)
[2025-01-31 02:13] VITALS: BP 121/67; PULSE 63; RESP 18; TEMP 97.8; O2SAT 99
--- NOTE | 2025-01-31 09:24 | EKG ---
[facility] Test Date: 2025-01-31 Test Time: 00:50:34 Pat Name: BISHNU ARIZMENDI Department: ED Room: Gender: F [employer] Installer: [id number] : 1935 Requested By: VANESA PRITCHETT Order Number: [id number] Reading MD: Graciela Galeana Measurements Intervals [place] Rate: 68 P: 45 IA: 166 QRS: -37 QRSD: 141 T: 35 QT: 441 QTc: 470 Interpretive Statements Sinus rhythm Right bundle branch block Compared to ECG 12/26/2024 20:50:19 Ventricular premature complex(es) no longer present Myocardial infarct finding no longer present Electronically Signed On 01-31-2025 10:58:40 CDT by Graciela Galeana Please click the below link to view image of tracing.
== END 2025-01-31 02:15 | disposition home or self-care (01) ==
LOC: EDH 00:08
DX: N39.0 Urinary tract infection, site not specified (principal); K44.9 Diaphragmatic hernia without obstruction or gangrene; K59.00 Constipation, unspecified; K57.30 Diverticulosis of large intestine without perforation or abscess without bleeding; E11.9 Type 2 diabetes mellitus without complications; I10 Essential (primary) hypertension; I21.9 Acute myocardial infarction, unspecified; Z79.899 Other long term (current) drug therapy; Z90.49 Acquired absence of other specified parts of digestive tract
CPT/HCPCS: 99285; 74176; 96374; 96375; 82550; 80076; 84484; 80048; 83690; 85025; 87086 ×2; 87186; 81001; 36415; 93005; J0696; J2405; J2470

== ENCOUNTER 2025-02-15 22:15 | Emergency (ER) | payer SELFPAY ==
[~2025-02-15] VITALS: Ht 149.9 cm; Wt 61.2 kg
[~2025-02-15 22:15] MED LIST changes: +LACT-441 PO
--- NOTE | 2025-02-15 22:21 | NUR ---
UA CUP AND NUNS CAP PROVIDED
[2025-02-15] MEDS: acetaMINOPHEN 325 MG TAB PO ONE (23:21)
[2025-02-15 23:25] LABS: BASOPHILS # (AUTO) 0.04 K/uL (0.00-0.20); BASOPHILS % (AUTO) 0.9 % (0.0-5.0); EOSINOPHILS # (AUTO) 0.11 K/uL (0.00-0.70); EOSINOPHILS % (AUTO) 2.6 % (0.0-8.0); HEMATOCRIT 32.5 % (36-48); IMMATURE GRANULOCYTE ABSOLUTE 0.01 K/uL (0-1); LYMPHOCYTES # (AUTO) 1.5 K/uL (1.0-4.8); MEAN CORPUSCULAR HEMOGLOBIN 30.2 pg (27.0-33.0); MEAN CORPUSCULAR HGB CONC 33.2 g/dL (32.0-36.0); MEAN CORPUSCULAR VOLUME 90.8 fL (79-99); MONOCYTES # (AUTO) 0.5 K/uL (0.1-1.0); MONOCYTES % (AUTO) 10.5 % (3.0-13.0); NEUTROPHILS # (AUTO) 2.2 K/uL (1.8-7.7); NEUTROPHILS % (AUTO) 50.8 % (40.0-77.0); PLATELET COUNT (AUTO) 165 K/uL (130-400); RED BLOOD CELL COUNT(AUTO) 3.58 MIL/uL (4.00-5.50); WHITE BLOOD COUNT (AUTO) 4.3 K/uL (4.8-10.8)
--- NOTE | 2025-02-15 23:28 | ERN ---
ED Note History of Present Illness Stated Complaint: ABD PAIN Chief Complaint: Abdominal Pain Time Seen by MD: 22:19 Time Seen by Midlevel: 22:19 Dictation: The patient is an 89-year-old female with a history of dementia, diabetes, cholecystectomy, hypertension who presents to the emergency department with complaints of epigastric abdominal pain onset yesterday. Patient denies any nausea, vomiting, diarrhea, constipation, fevers. Patient reports that pain has subsided. Patient also complaints of left upper leg pain. Denies any traumas or recent falls. Allergies: Coded Allergies: No Known Drug Allergies (Unverified Allergy, Unknown, 07/25/22) Home Meds Active Scripts Cephalexin Monohydrate (Keflex) 500 Mg Cap, 500 MG PO BID for 7 Days, #14 CAP Prov:VANESA PRITCHETT SCORER HELPER 01/31/25 Lactulose (Lactulose) 10 Gram/15 Ml Solution, 30 ML PO BID for constipation, #500 ML 0 Refills Prov:VANESA PRITCHETT SCORER HELPER 01/31/25 Sennosides/Docusate Sodium (Senna Plus 8.6-50 mg Tablet) 8.6 Mg-50 Mg Tablet, 1 EACH PO bed time for abdominal discomfort for 14 Days, #28 TAB Prov:KATELYN MOSQUERA MD 01/08/25 Nitrofurantoin Macrocrystal (Nitrofurantoin) 100 Mg Capsule, 1 CAP PO BID for 7 Days, #14 CAP 0 Refills Prov:FARRUKH TONG 12/26/24 Nitrofurantoin Monohyd/M-Cryst (Macrobid 100 mg Capsule) 100 Mg Capsule, 1 CAP PO BID for 7 Days, #14 CAP 0 Refills Prov:KATELYN MOSQUERA MD 12/01/24 Ibuprofen (Ibuprofen) 600 Mg Tablet, 600 MG PO Q6H PRN for PAIN, #30 TAB Prov:ALICE FRANCO NP 11/03/24 Nitrofurantoin/Nitrofuran Mac (Macrobid) 100 Mg Cap, 1 CAP PO BID for 7 Days, #14 CAP 0 Refills Prov:ALICE FRANCO NP 11/03/24 Levofloxacin (Levofloxacin) 500 Mg Tablet, 500 MG PO DAILY for 10 Days, #10 TAB Prov:GIDEON ARIZMENDI MD 09/20/24 Phenazopyridine HCl (Pyridium) 100 Mg Tab, 100 MG PO DAILY for 3 Days, #3 TAB 0 Refills Prov:NABEEL DAY MD 08/13/24 Cephalexin Monohydrate (Keflex) 500 Mg Cap, 500 MG PO BID for 5 Days, #10 CAP Prov:ELVA PRITCHETT MD 05/11/24 Lactulose (Lactulose) 20 Gram/30 Ml Solution, 20 GM PO BID, #180 ML Prov:JOSE ANTONIO CERVANTES 04/21/24 Ciprofloxacin HCl (Ciprofloxacin HCl) 500 Mg Tablet, 500 MG PO BID for 10 Days, #20 TAB Prov:JOSE ANTONIO CERVANTES 04/21/24 Sennosides (Senna) 8.6 Mg Tablet, 8.6 MG PO DAILYDINNER, #30 TAB Prov:KATELYN MOSQUERA MD 03/29/24 Ciprofloxacin HCl (Cipro) 500 Mg Tablet, 1 TAB PO BID for 10 Days, #20 TAB 0 Refills Prov:KATELYN MOSQUERA MD 03/29/24 Nitrofurantoin Monohyd/M-Cryst (Macrobid 100 mg Capsule) 100 Mg Capsule, 100 MG PO BIDAC for uti for 7 Days, #14 CAP 0 Refills Prov:GIDEON ARIZMENDI MD 03/16/24 Polyethylene Glycol 3350 (Miralax) 17 Gram Powd.pack, 17 GM PO DAILY, #30 0 Refills Prov:NOEL ALCARAZ MD 01/24/24 Risperidone (Risperdal 1Mg Tab) 1 Mg Tablet, 1 MG PO DAILY19 for 30 Days, #30 TAB TAKE IT AT 9:00 PM Prov:MAURICE VASQUEZ MD 11/06/23 Risperidone (Risperdal 1Mg Tab) 1 Mg Tablet, 0.5 MG PO AM for 30 Days, #30 TAB 1 Refill TAKE IT IN THE MORNING Prov:MAURICE VASQUEZ MD 11/06/23 Cephalexin Monohydrate (Keflex) 500 Mg Cap, 500 MG PO Q12H, #14 CAP 0 Refills Prov:MERRILL JEAN 08/09/23 Cholecalciferol (Vitamin D3) (Vitamin D3) 25 Mcg (1000 Unit) Tablet, 25 MCG PO DAILY, #30 TAB 0 Refills Prov:MERRILL JEAN 08/09/23 Lactulose (Lactulose) 20 Gram/30 Ml Solution, 20 GM PO BID, #180 ML Prov:MERRILL JEAN AGPCNP 08/09/23 Reported Medications [Vitamin D3] No Conflict Check 11/02/23 Cetirizine HCl (Cetirizine HCl) 10 Mg Tablet, 10 MG PO AD for ALLERGIES, TAB 08/08/23 Furosemide (Lasix 20Mg Tab) 20 Mg Tablet, 20 MG PO AM, TAB 07/27/22 Lisinopril (Lisinopril) 40 Mg Tablet, 40 MG PO DAILY, TAB 07/26/22 Amlodipine Besylate (Amlodipine Besylate) 5 Mg Tablet, 5 MG PO BID, TAB 07/26/22 Past Medical History Past Medical History: Diabetes-Type II, Hypertension, UTI Additional Past Medical Hx: POOR HISTORIAN Surgical History: Cholecystectomy, Surgical History Other: POOR HISTORIANS Family History: CAD, DM, HTN Social History: Negative, Lives with family History: Not Applicable RN Note Reviewed/Agreed w/PFSH: Yes Review of System Dictation Constitutional: Negative for fever,chills, and weight loss Eyes: Negative for injury, pain,redness, and discharge ENT: Negative for injury,pain or swelling Cardiovascular: Negative for chest pain, palpitations, and edema Respiratory: Negative for shortness of breath, cough, and wheezing, Abdomen/GI: Negative for , nausea, vomiting, diarrhea, and constipation positive for epigastric pain Back: Negative for injury and pain : Negative for injury, bleeding and discharge MS/Extremity: Negative for injury and deformity positive for left leg pain Skin: Negative for rash, and discoloration Neuro: Negative for headache, weakness, numbness, tingling, and seizure Psych: Negative for suicide ideation, homicidal ideation, and hallucinations Initial Vital Sign VS Vital Signs Date Time Temp Pulse Resp B/P (MAP) Pulse Ox O2 Delivery O2 Flow Rate FiO2 02/15/25 22:16 98.4 65 20 177/70 96 Room Air Physical Exam Dictation Vital Signs reviewed General Appearance: Alert, oriented x 2, no acute distress, well developed, nourished. Laughing during assessment Head and Face: non-traumatic. Eyes: PERRL, pink conjunctivas, eyelid no trauma, anterior chamber with arcus s enilis. Ears: Pinnas intact and no signs of trauma or erythema ear canals clear and no discharge TM no erythema Nose: No discharge, no bleeding. Oropharynx: Mouth normal, tongue pink. pharynx clear,no erythema, tonsils no exudates, no abscesses noted, mucous membrane moist Neck: Supple, non-tender, no thyromegaly, no masses, no JVD, no bruits Breast:Deferred Chest:No tenderness, no crepitus, no paradoxical movement, no retractions Lungs:Clear, well-ventilated, symmetric, no rales, no wheezing, no rhonchi, no stridor, good breath sounds bilaterally Heart: Regular rate, regular rhythm, no murmur, no gallops Vascular: no peripheral edema, dorsalis pedis 2+ bilaterally Abdomen: Soft, positive bowel sounds, nondistended, no guarding, nontender, no rebound, no masses no hepatomegaly, no splenomegaly, no Dennis's sign, no hernias. Rectal: Deferred Genital: Deferred Neurological: Normal speech, motor function intact, sensory function intact Musculoskeletal: Neck nontender, full range of motion, back nontender, full range of motion, Extremities: nontender, full range of motion Skin: Color pink, dry, no turgor, no rash, no lacerations, no abrasions, no contusions. Lymphatic: Deferred Results (Laboratory/Radiology) Laboratory/Radiology Laboratory Tests Test 02/15/25 23:16 White Blood Count 4.3 K/uL (4.8-10.8) L Red Blood Count 3.58 MIL/uL (4.00-5.50) L Hemoglobin 10.8 g/dL (12.0-16.0) L Hematocrit 32.5 % (36-48) L Mean Corpuscular Volume 90.8 fL (79-99) Mean Corpuscular Hemoglobin 30.2 pg (27.0-33.0) Mean Corpuscular Hemoglobin Concent 33.2 g/dL (32.0-36.0) Red Cell Distribution Width 13.0 % (11.0-15.5) Platelet Count 165 K/uL (130-400) Mean Platelet Volume 11.5 fL (7.5-10.5) H Immature Granulocyte % (Auto) 0.2 % (0-1) Neutrophils (%) (Auto) 50.8 % (40.0-77.0) Lymphocytes (%) (Auto) 35.0 % (21.0-51.0) Monocytes (%) (Auto) 10.5 % (3.0-13.0) Eosinophils (%) (Auto) 2.6 % (0.0-8.0) Basophils (%) (Auto) 0.9 % (0.0-5.0) Neutrophils # (Auto) 2.2 K/uL (1.8-7.7) Lymphocytes # (Auto) 1.5 K/uL (1.0-4.8) Monocytes # (Auto) 0.5 K/uL (0.1-1.0) Eosinophils # (Auto) 0.11 K/uL (0.00-0.70) Basophils # (Auto) 0.04 K/uL (0.00-0.20) Absolute Immature Granulocyte (auto 0.01 K/uL (0-1) Nucleated Red Blood Cells 0.0 % (0.0-0.19) Sodium Level 137 mmol/L (136-145) Potassium Level 3.9 mmol/L (3.5-5.1) Chloride Level 105 mmol/L (101-111) Carbon Dioxide Level 28 mmol/L (21-32) Blood Urea Nitrogen 26 mg/dL (7-18) H Creatinine 0.9 mg/dL (0.5-1.0) Glomerular Filtration Rate Calc 61 mL/min (>90) Random Glucose 103 mg/dL (70-105) Total Calcium 9.6 mg/dL (8.5-10.1) Troponin I High Sensitivity 13 ng/L (4-50) Lipase 32 U/L (16-77) Labs Reviewed?: Yes EKG: (+) rhythm (Sinus rhythm) EKG Comment: Date:02/16/2025 Time:57 Ventricular rate:77 MN interval:161 QRS duration:153 QT/QTc:454 EKG interpretation: Sinus rhythm Reviewed by ED Attending no STEMI ED Course ED Course Orders Procedure Category Date Status Time Vital Signs Per CPOE 02/15/25 Transmitted Routine 22:21 Saline Lock Iv CPOE 02/15/25 Transmitted 22:21 Cbc With Differential LAB 02/15/25 Complete 22:21 Lipase LAB 02/15/25 Complete 22:21 Urinalysis Profile LAB 02/15/25 Logged 22:21 Basic Metabolic Panel LAB 02/15/25 Complete 22:21 Troponin I High LAB 02/15/25 Complete Sensitivity 23:12 12 Lead Ekg Tracing- EKG 02/15/25 Logged Technical 23:12 Femur 2 Vw Left RAD 02/15/25 Taken 23:12 Acetaminophen 325 Tab PHA 02/15/25 Complete (Tylenol 325mg Tab 23:30 Current Medications Medications (Trade) Dose Ordered Sig/Herminia Route PRN Reason Start Time Stop Time Status Last Admin Dose Admin Acetaminophen (TYLenol 325MG TAB) 650 mg ONCE ONCE PO 02/15/25 23:30 02/15/25 23:31 DC 02/15/25 23:21 Vital Signs Date Time Temp Pulse Resp B/P (MAP) Pulse Ox O2 Delivery O2 Flow Rate FiO2 02/15/25 22:16 98.4 65 20 177/70 96 Room Air Medical Decision Making MDM The patient is an 89-year-old female with a history of dementia, diabetes, cholecystectomy, hypertension who presents to the emergency department with complaints of epigastric abdominal pain onset yesterday. Patient denies any nausea, vomiting, diarrhea, constipation, fevers. Patient reports that pain has subsided. Patient also complaints of left upper leg pain. Denies any traumas or recent falls. Showed no leukocytosis, normocytic anemia, chemistry showed no electrolyte imbalance, negative lipase, negative troponin, femur x-ray showed no acute fractures or dislocations. Patient with no more abdominal pain. Nontender abdomen to palpation. Neurovascularly intact from left lower leg. Tenderness to palpation. Patient is seen here multiple times for similar symptoms. On last CT patient found to have a small hiatal hernia. Patient with no nausea or vomiting. Patient in no acute distress will be discharged to follow up with primary doctor. Differential diagnosis: Gastritis, gastroenteritis, ACS, femur fracture Need for hospitalization: Patient does not meet criteria for hospitalization. There are no social concerns with this patient. DX & DISP Disposition: Discharge Departure Impression: Primary Impression: Abdominal pain Additional Impression: Leg pain, left Condition: Stable Additional Instructions: FOLLOW-UP WITH PRIMARY CARE PROVIDER IN 1 TO 2 DAYS. TAKE MEDICATIONS DIRECTED HERE IN THE EMERGENCY ROOM. OKAY TO CONTINUE HOME MEDICATIONS UNLESS OTHERWISE DISCUSSED DURING YOUR VISIT IN THE EMERGENCY ROOM TODAY. RETURN TO YOUR NEAREST EMERGENCY ROOM IF SYMPTOMS WORSEN OR IF THERE IS NO IMPROVEMENT. CALL 911 IF YOU NEED IMMEDIATE ASSISTANCE. TAKE TYLENOL OR MOTRIN [id number] NEEDED AND IF NO CONTRAINDICATIONS ARE PRESENT. INCREASE ORAL HYDRATION. A WOUND CULTURE OR URINE CULTURE WAS ORDERED HERE IN THE EMERGENCY ROOM DEPARTMENT PLEASE FOLLOW-UP WITH PRIMARY CARE PROVIDER AND ADVISE THEM TO GET REPEAT PORTS FROM OUR FACILITY. IF YOU HAD ANY EDWIN WRAP/SPLINTS THAT WERE APPLIED HERE, PLEASE DO NOT REMOVE THEM UNTIL YOU SEE YOUR PRIMARY CARE OR SPECIALTY. Referrals: ANKIT SETHI DO (PCP) Time of Disposition: 01:03 I have reviewed the case, and I agree with, Diagnosis and Plan VANESA PRITCHETT SCORER HELPER Feb 15, 2025 23:28
[2025-02-15 23:34] LABS: CREATININE 0.9 mg/dL (0.5-1.0); POTASSIUM 3.9 mmol/L (3.5-5.1)
[2025-02-16 01:12] VITALS: BP 159/67; PULSE 68; RESP 17; TEMP 98.4; O2SAT 97
--- NOTE | 2025-02-16 08:28 | HMCIMG ---
LEFT FEMUR RADIOGRAPHS - 2 VIEWS INDICATION: Pain COMPARISON: None FINDINGS: AP and lateral views. No fracture or dislocation identified. Mild left hip degenerative joint disease. Moderate tricompartmental left knee osteoarthropathy. Mild calcific plaque along the inflow, outflow, and runoff arterial carpenter. Osteoporotic bone changes. IMPRESSION: No evidence for fracture or dislocation. If patient is unable to bear weight, MR imaging of the left hip is advised for further evaluation.
--- NOTE | 2025-02-16 14:27 | EKG ---
[facility] Test Date: 2025-02-16 Test Time: 00:58:05 Pat Name: BISHNU ARIZMENDI Department: ED Room: Gender: F Quality Improvement Coordinator: [id number] : [id number] Requested By: VANESA PRITCHETT Order Number: [id number] Reading MD: Karson Gonzalez Measurements Intervals Colon Rate: 77 P: 16 SD: 161 QRS: -57 QRSD: 153 T: 29 QT: 454 QTc: 513 Interpretive Statements Sinus rhythm Paired ventricular premature complexes Right bundle branch block Inferior infarct, old Compared to ECG 01/31/2025 00:50:34 Ventricular premature complex(es) now present Myocardial infarct finding now present Electronically Signed On 02-16-2025 17:28:35 CDT by Karson Gonzalez Please click the below link to view image of tracing.
== END 2025-02-16 01:13 | disposition home or self-care (01) ==
LOC: EDH 22:15
DX: R10.13 Epigastric pain (principal); M79.605 Pain in left leg; E11.9 Type 2 diabetes mellitus without complications; I10 Essential (primary) hypertension; Z79.899 Other long term (current) drug therapy; Z90.49 Acquired absence of other specified parts of digestive tract
CPT/HCPCS: 36415; 73552; 80048; 83690; 84484; 85025; 93005; 99285

== ENCOUNTER 2025-03-11 17:12 | Emergency (ER) | payer SELFPAY ==
[~2025-03-11] VITALS: Ht 152.4 cm; Wt 59.0 kg
[~2025-03-11 17:12] MED LIST changes: +CIPR-478 PO; -CIPR500T10 PO
--- NOTE | 2025-03-11 18:13 | ERN ---
General Chief Complaint: Abdominal Pain Stated Complaint: RIGHT SIDE STOMACH PAIN Time Seen by MD: 17:13 Time Seen by Midlevel: 17:13 Source: patient History of Present Illness Initial Comments The patient is an 89 y/o female with a PMH of dementia being brought in by family member for evaluation of suprapubic abd pain. The patient is a poor historian given her history of dementia so the majority of history was obtained via family member. Family states patient has a history of recurrent UTI's and usually needs to take antibiotics every 1-2 months. Today she reported lower abd ominal pain which is consistent with previous times shes been diagnosed with a UTI. no fever, chills, or any other symptoms reported at this time. Allergies: Coded Allergies: No Known Drug Allergies (Unverified Allergy, Unknown, 07/25/22) Home Meds Active Scripts Cephalexin Monohydrate (Keflex) 500 Mg Cap, 500 MG PO BID for 7 Days, #14 CAP Prov:VANESA PRITCHTET MAINSPRING STRIP GAUGER 01/31/25 Lactulose (Lactulose) 10 Gram/15 Ml Solution, 30 ML PO BID for constipation, #500 ML 0 Refills Prov:VANESA PRITCHETT MAINSPRING STRIP GAUGER 01/31/25 Sennosides/Docusate Sodium (Senna Plus 8.6-50 mg Tablet) 8.6 Mg-50 Mg Tablet, 1 EACH PO bed time for abdominal discomfort for 14 Days, #28 TAB Prov:KATELYN MOSQUERA MD 01/08/25 Nitrofurantoin Macrocrystal (Nitrofurantoin) 100 Mg Capsule, 1 CAP PO BID for 7 Days, #14 CAP 0 Refills Prov:FARRUKH TONG 12/26/24 Nitrofurantoin Monohyd/M-Cryst (Macrobid 100 mg Capsule) 100 Mg Capsule, 1 CAP PO BID for 7 Days, #14 CAP 0 Refills Prov:KATELYN MOSQUERA MD 12/01/24 Ibuprofen (Ibuprofen) 600 Mg Tablet, 600 MG PO Q6H PRN for PAIN, #30 TAB Prov:ALICE FRANCO NP 11/03/24 Nitrofurantoin/Nitrofuran Mac (Macrobid) 100 Mg Cap, 1 CAP PO BID for 7 Days, #14 CAP 0 Refills Prov:ALICE FRANCO NP 1/12/25 Levofloxacin (Levofloxacin) 500 Mg Tablet, 500 MG PO DAILY for 10 Days, #10 TAB Prov:GIDEON ARIZMENDI MD 09/20/24 Phenazopyridine HCl (Pyridium) 100 Mg Tab, 100 MG PO DAILY for 3 Days, #3 TAB 0 Refills Prov:NABEEL DAY MD 08/13/24 Cephalexin Monohydrate (Keflex) 500 Mg Cap, 500 MG PO BID for 5 Days, #10 CAP Prov:ELVA PRITCHETT MD 05/11/24 Lactulose (Lactulose) 20 Gram/30 Ml Solution, 20 GM PO BID, #180 ML Prov:JOSE ANTONIO CERVANTES 04/21/24 Ciprofloxacin HCl (Ciprofloxacin HCl) 500 Mg Tablet, 500 MG PO BID for 10 Days, #20 TAB Prov:JOSE ANTONIO CERVANTES 04/21/24 Sennosides (Senna) 8.6 Mg Tablet, 8.6 MG PO DAILYDINNER, #30 TAB Prov:KATELYN MOSQUERA MD 03/29/24 Ciprofloxacin HCl (Cipro) 500 Mg Tablet, 1 TAB PO BID for 10 Days, #20 TAB 0 Refills Prov:KATELYN MOSQUERA MD 03/29/24 Nitrofurantoin Monohyd/M-Cryst (Macrobid 100 mg Capsule) 100 Mg Capsule, 100 MG PO BIDAC for uti for 7 Days, #14 CAP 0 Refills Prov:GIDEON ARIZMENDI MD 03/16/24 Polyethylene Glycol 3350 (Miralax) 17 Gram Powd.pack, 17 GM PO DAILY, #30 0 Refills Prov:NOEL ALCARAZ MD 01/24/24 Risperidone (Risperdal 1Mg Tab) 1 Mg Tablet, 1 MG PO DAILY19 for 30 Days, #30 TAB TAKE IT AT 9:00 PM Prov:MAURICE VASQUEZ MD 11/06/23 Risperidone (Risperdal 1Mg Tab) 1 Mg Tablet, 0.5 MG PO AM for 30 Days, #30 TAB 1 Refill TAKE IT IN THE MORNING Prov:MAURICE VASQUEZ MD 11/06/23 Cephalexin Monohydrate (Keflex) 500 Mg Cap, 500 MG PO Q12H, #14 CAP 0 Refills Prov:MERRILL JEAN AGPCMAYCOL 08/09/23 Cholecalciferol (Vitamin D3) (Vitamin D3) 25 Mcg (1000 Unit) Tablet, 25 MCG PO DAILY, #30 TAB 0 Refills Prov:MERRILL JEANAARONMAYCOL 08/09/23 Lactulose (Lactulose) 20 Gram/30 Ml Solution, 20 GM PO BID, #180 ML Prov:MERRILL JEAN [facility] 08/09/23 Reported Medications [Vitamin D3] No Conflict Check 11/02/23 Cetirizine HCl (Cetirizine HCl) 10 Mg Tablet, 10 MG PO AD for ALLERGIES, TAB 08/08/23 Furosemide (Lasix 20Mg Tab) 20 Mg Tablet, 20 MG PO AM, TAB 07/27/22 Lisinopril (Lisinopril) 40 Mg Tablet, 40 MG PO DAILY, TAB 07/26/22 Amlodipine Besylate (Amlodipine Besylate) 5 Mg Tablet, 5 MG PO BID, TAB 07/26/22 Past Medical History Past Medical History: Diabetes-Type II, Hypertension, UTI Medical History Other: POOR HISTORIAN Past Surgical History: Cholecystectomy, Surgical History Other: POOR HISTORIANS Family History Family History: CAD, DM, HTN Social History Social History: Negative, Lives with family Female( History) History: Not Applicable ROS Dictation CONSTITUTIONAL: Negative except for HPI HEAD/FACE: Negative except for HPI EENT: Negative except for HPI RESPIRATORY: Negative except for HPI GASTROINTESTINAL/ABDOMINAL: Negative except for HPI GENITOURINARY: Negative except for HPI MUSCULOSKELETAL: Negative except for HPI INTEGUMENTARY: Negative except for HPI NEUROLOGICAL/PSYCH: Negative except for HPI HEMATOLOGIC/LYMPHATIC: Negative except for HPI All Systems Negative, Except as noted above. 13 point review of systems assessed and all negative except for above. Physical Exam Physical Exam Dictation Vital Signs reviewed General Appearance: Alert, oriented x 3, no acute distress, well developed, nourished. Head and Face: non-traumatic. Eyes: PERRL, pink conjunctivas, eyelid no trauma, anterior chamber with arcus senilis. Ears: Pinnas intact and no signs of trauma or erythema ear canals clear and no discharge TM no erythema Nose: No discharge, no bleeding. Oropharynx: Mouth normal, tongue pink, pharynx clear,no erythema, tonsils no exudates, no abscesses noted, mucous membrane moist Neck: Supple, non-tender, no thyromegaly, no masses, no JVD, no bruits Breast:Deferred Chest:No tenderness, no crepitus, no paradoxical movement, no retractions Lungs:Clear, well-ventilated, symmetric, no rales, no wheezing, no rhonchi, no stridor, good breath sounds bilaterally Heart: Regular rate, regular rhythm, no murmur, no gallops Vascular: no peripheral edema, Abdomen: Soft, positive bowel sounds, nondistended, no guarding, nontender, no rebound, no masses no hepatomegaly, no splenomegaly, no Dennis's sign, no hernias. Rectal: Deferred Genital: Deferred Neurological: Normal speech, motor function intact, sensory function intact Musculoskeletal: Neck nontender, full range of motion, back nontender, full range of motion, Extremities: nontender, full range of motion Skin: Color pink, dry, no turgor, no rash, no lacerations, no abrasions, no contusions. Lymphatic: Deferred Results Laboratory and Microbiology Lab and Micro Result Laboratory Tests Test 03/11/25 19:35 Urine Color LIGHT-YELLOW (YELLOW) Urine Appearance CLEAR (CLEAR) Urine pH 5.5 (5.0-8.0) Urine Specific [place] 1.011 (1.001-1.031) Urine Protein NEGATIVE mg/dL (NEGATIVE) Urine Glucose (UA) NEGATIVE mg/dL (NEGATIVE) Urine Ketones NEGATIVE mg/dL (NEGATIVE) Urine Occult Blood +- (TRACE) (NEGATIVE) H Urine Nitrate 2+ (NEGATIVE) H Urine Bilirubin NEGATIVE mg/dL (NEGATIVE) Urine Urobilinogen 0.2 mg/dL (0.2-1.0) Urine Leukocyte Esterase 25 Alberto/uL (NEGATIVE) H Urine RBC 2-5 /HPF (0-1) H Urine WBC 11-25 /HPF (0-1) H Urine Bacteria RARE /HPF (None Seen) Labs Reviewed?: Yes MDM MDM: Differential diagnosis:Urinary tract infection, acute cystitis, pyelonephritis There are no social concerns with this patient. Prescription drug management Prescriptions will include: Macrobid Medical management and examination interpretation discussions were had by wit h other qualified healthcare professionals as indicated for the patient's care. ED Course Orders Procedure Category Date Status Time Urinalysis Profile LAB 03/11/25 Complete 18:09 Culture Urine SONNY 03/11/25 In Process 19:51 Ceftriaxone 1g Vial PHA 03/11/25 Complete (Rocephine 1g Inj) 20:30 Current Medications Medications (Trade) Dose Ordered Sig/Herminia Route PRN Reason Start Time Stop Time Status Last Admin Dose Admin Ceftriaxone Sodium (ROCEphine 1G INJ) 1 gm ONCE ONCE IM 03/11/25 20:30 03/11/25 20:31 DC 03/11/25 20:37 Vital Signs Date Time Temp Pulse Resp B/P (MAP) Pulse Ox O2 Delivery O2 Flow Rate FiO2 03/11/25 19:53 81 18 143/69 98 Room Air* 0 21 03/11/25 18:02 98.4 64 20 168/67 99 Room Air DX & DISP Disposition: Discharge Departure Impression: Primary Impression: Acute UTI Condition: Stable Scripts Nitrofurantoin/Nitrofuran Mac (Macrobid) 100 Mg Cap 1 CAP PO BID for 7 Days, #14 CAP 0 Refills Prov: YOLANDE CHESTER 03/11/25 Referrals: ANKIT STEHI DO (PCP) Time of Disposition: 20:43 I have reviewed the case, and I agree with, Diagnosis and Plan I performed the substantive portion of the visit. I have reviewed and personally made and approve the management plan that is documented in the note by myself or the ANTON. I acknowledge for responsibility for the patient's management plan. YOLANDE CHESTER March 11, 2025 18:13
[2025-03-11 19:51] LABS: ADD UA MICROSCOPIC YES; APPEARANCE,URINE CLEAR (CLEAR); BILIRUBIN,URINE NEGATIVE (NEGATIVE); COLOR,URINE LIGHT-YELLOW (YELLOW); GLUCOSE, URINE (UA) NEGATIVE (NEGATIVE); KETONES,URINE NEGATIVE (NEGATIVE); LEUKOCYTE ESTERASE ,URINE 25 Leu/uL (NEGATIVE); NITRATE,URINE 2+ (NEGATIVE); PH,URINE 5.5 (5.0-8.0); PROTEIN,URINE NEGATIVE (NEGATIVE); UROBILINOGEN,URINE 0.2 mg/dL (0.2-1.0)
[2025-03-11 19:57] LABS: BACTERIA,URINE RARE /HPF (None Seen)
[2025-03-11] MEDS: cefTRIAXone 1G VIAL IM ONE (20:37)
[2025-03-11] MEDS ORDERED: MACR100 PO (20:43)
[2025-03-11 20:49] VITALS: BP 129/61; PULSE 81; RESP 18; TEMP 98.4; O2SAT 99
== END 2025-03-11 20:50 | disposition home or self-care (01) ==
LOC: EDH 17:12
DX: N39.0 Urinary tract infection, site not specified (principal); E11.9 Type 2 diabetes mellitus without complications; F03.90 Unspecified dementia, unspecified severity, without behavioral disturbance, psychotic disturbance, mood disturbance, and anxiety; I10 Essential (primary) hypertension; Z79.899 Other long term (current) drug therapy; Z90.49 Acquired absence of other specified parts of digestive tract
CPT/HCPCS: 99283; 87086 ×2; 87186; 81001; 96372; J0696